=== PATIENT | male | born 1960 ===

== ENCOUNTER 2020-11-21 09:00 | Outpatient (REF) | payer BC, SELFPAY ==
[2020-11-21 09:57] LABS: Anion Gap 12 (12-20); Blood Urea Nitrogen 21 mg/dL (9-16); Calcium 8.8 mg/dL (8.4-10.2); Carbon Dioxide 28 mmol/L (22-29); Chloride 104 mmol/L (96-108); Estimated Glomerular Filt Rate > 60; Glucose Fasting 157 mg/dL (60-99); Potassium 4.4 mmol/l (3.3-5.1); Sodium 140 mmol/L (135-145)
== END 2020-11-21 09:01 | disposition home or self-care (01) ==
LOC: HO.LAB 09:00
PROVIDERS: PCP Hospitalist; Visit Provider Hospitalist
DX: E11.65 Type 2 diabetes mellitus with hyperglycemia (principal)
CPT/HCPCS: 36415; 80048

== ENCOUNTER 2021-07-31 09:49 | Outpatient (REF) | payer BC, SELFPAY ==
[2021-07-31 12:06] LABS: Prostate Specific Antigen 2.41 ng/mL (<0.05-4.0)
== END 2021-07-31 09:50 | disposition home or self-care (01) ==
LOC: HO.LAB 09:49
PROVIDERS: PCP Family Medicine; Visit Provider Urology
DX: R97.20 Elevated prostate specific antigen [PSA] (principal); Z12.5 Encounter for screening for malignant neoplasm of prostate
CPT/HCPCS: 36415; 84153

== ENCOUNTER → 2021-08-09 08:34 | Outpatient (BNVA) | payer BC, SELFPAY | PROVIDERS: PCP Hospitalist; Visit Provider Urology ==

== ENCOUNTER 2021-09-18 09:58 | Outpatient (REF) | payer BC, SELFPAY ==
[2021-09-18 11:55] LABS: Estimated Average Glucose 177 mg/dL; Hemoglobin A1c % 7.8 %
[2021-09-18 12:27] LABS: Alanine Aminotransferase 15 U/L (0-40); Albumin Level 4.3 g/dL (3.5-5.0); Alkaline Phosphatase 30 U/L (39-117); Anion Gap 13 (12-20); Aspartate Amino Transferase 10 U/L (5-37); Bilirubin Total 0.6 mg/dL (0.0-1.0); Blood Urea Nitrogen 19 mg/dL (9-16); Calcium 9.1 mg/dL (8.4-10.2); Carbon Dioxide 25 mmol/L (22-29); Chloride 108 mmol/L (96-108); Estimated Glomerular Filt Rate > 60; Glucose Fasting 144 mg/dL (60-99); Potassium 4.7 mmol/L (3.3-5.1); Sodium 141 mmol/L (135-145); Total Protein 7.1 g/dL (6.5-8.0)
== END 2021-09-18 09:59 | disposition home or self-care (01) ==
LOC: HO.WFDLDS 09:58
PROVIDERS: Visit Provider Family Medicine
DX: Z00.00 Encounter for general adult medical examination without abnormal findings (principal); R73.01 Impaired fasting glucose
CPT/HCPCS: 36415; 80053; 83036

== ENCOUNTER 2021-12-11 09:09 | Outpatient (REF) | payer BC, SELFPAY ==
[2021-12-11 10:46] LABS: Prostate Specific Antigen 5.27 ng/mL (<0.05-4.0)
== END 2021-12-11 09:10 | disposition home or self-care (01) ==
LOC: HO.LAB 09:09
PROVIDERS: PCP Hospitalist; Visit Provider Urology
DX: Z12.5 Encounter for screening for malignant neoplasm of prostate (principal); R97.20 Elevated prostate specific antigen [PSA]
CPT/HCPCS: 36415; 84153

== ENCOUNTER → 2021-12-18 09:10 | Outpatient (BNVA) | payer BC, SELFPAY | PROVIDERS: Visit Provider Urology ==

== ENCOUNTER 2022-04-30 09:15 | Outpatient (REF) | payer BC, SELFPAY ==
[2022-04-30 11:53] LABS: Mean Corpuscular HGB Conc 32.5 g/dl (31.0-36.0); Mean Corpuscular Hemoglobin 28.2 pg (27.0-33.0); Mean Corpuscular Volume 86.8 fL (80.0-98.0); Mean Platelet Volume 11.3 fL (9.4-12.4); Platelet Count 296 X10*3/uL (160-400); Red Blood Count 4.61 X10*6/uL (4.60-5.80); Red Cell Distribution Width 13.2 % (11.0-16.0); White Blood Count 7.2 X10*3/uL (4.8-10.8)
[2022-04-30 12:22] LABS: Alanine Aminotransferase 17 U/L (0-40); Albumin Level 4.3 g/dL (3.5-5.0); Alkaline Phosphatase 32 U/L (39-117); Anion Gap 11 (12-20); Aspartate Amino Transferase 10 U/L (5-37); Bilirubin Total 0.4 mg/dL (0.0-1.0); Blood Urea Nitrogen 17 mg/dL (9-16); Calcium 9.2 mg/dL (8.4-10.2); Carbon Dioxide 27 mmol/L (22-29); Chloride 104 mmol/L (96-108); Cholesterol 135 mg/dL; Estimated Glomerular Filt Rate > 60; Glucose Random 179 mg/dL (60-115); HDL Cholesterol 43 mg/dL; LDL Cholesterol Calculated 72 mg/dl; Potassium 4.4 mmol/L (3.3-5.1); Sodium 138 mmol/L (135-145); Total Protein 7.1 g/dL (6.5-8.0); Triglycerides 102 mg/dL
[2022-04-30 12:29] LABS: TSH reflex Free T4 1.01 uIU/mL (0.32-4.0)
[2022-04-30 12:33] LABS: PSA,Total (Free>4and<10) 1.24 ng/mL (0.00-4.00)
[2022-05-05 13:37] LABS: Vitamin D 25-OH, D2 <4 ng/mL; Vitamin D 25-OH, D3 41 ng/mL; Vitamin D 25-OH, Total 41 ng/mL (30-100)
== END 2022-04-30 09:16 | disposition home or self-care (01) ==
LOC: HO.WFDLDS 09:15
PROVIDERS: Absent Provider Urology; Visit Provider Hospitalist
DX: Z12.5 Encounter for screening for malignant neoplasm of prostate (principal); N32.0 Bladder-neck obstruction; E11.65 Type 2 diabetes mellitus with hyperglycemia; E55.9 Vitamin D deficiency, unspecified; I10 Essential (primary) hypertension
CPT/HCPCS: 36415; 80053; 80061; 82306; 84153; 84443; 85027

== ENCOUNTER → 2022-06-25 14:01 | Outpatient (BNVA) | payer BC, SELFPAY | PROVIDERS: PCP Hospitalist; Visit Provider Urology | DX: N32.0 Bladder-neck obstruction (principal); N52.1 Erectile dysfunction due to diseases classified elsewhere; R35.1 Nocturia; E11.69 Type 2 diabetes mellitus with other specified complication; R97.20 Elevated prostate specific antigen [PSA] | CPT/HCPCS: 51798 ==

== ENCOUNTER 2022-12-24 07:38 | Outpatient (REF) | payer BC, SELFPAY ==
[2022-12-24 08:04] LABS: Hematocrit 40.3 % (42.0-52.0); Hemoglobin 13.2 g/dl (14.0-18.0); Mean Corpuscular HGB Conc 32.8 g/dl (31.0-36.0); Mean Corpuscular Hemoglobin 28.3 pg (27.0-33.0); Mean Corpuscular Volume 86.5 fL (80.0-98.0); Mean Platelet Volume 10.4 fL (9.4-12.4); Platelet Count 295 X10*3/uL (160-400); Red Blood Count 4.66 X10*6/uL (4.60-5.80); Red Cell Distribution Width 13.6 % (11.0-16.0); White Blood Count 7.2 X10*3/uL (4.8-10.8)
[2022-12-24 08:48] LABS: Alanine Aminotransferase 12 U/L (0-40); Albumin Level 4.2 g/dL (3.5-5.0); Alkaline Phosphatase 30 U/L (39-117); Aspartate Amino Transferase 9 U/L (5-37); Bilirubin Direct 0.2 mg/dL (0.0-0.5); Bilirubin Total 0.7 mg/dL (0.0-1.0); Total Protein 6.8 g/dL (6.5-8.0)
[2022-12-24 09:03] LABS: Prostate Specific Antigen 1.04 ng/mL (<0.05-4.0)
== END 2022-12-24 07:39 | disposition home or self-care (01) ==
LOC: HO.LAB 07:38
PROVIDERS: PCP Hospitalist; Visit Provider Urology
DX: Z12.5 Encounter for screening for malignant neoplasm of prostate (principal); R97.20 Elevated prostate specific antigen [PSA]; R74.8 Abnormal levels of other serum enzymes; D64.9 Anemia, unspecified
CPT/HCPCS: 36415; 80076; 84153; 85027

== ENCOUNTER → 2022-12-31 08:42 | Outpatient (BNVA) | payer BC, SELFPAY | PROVIDERS: PCP Hospitalist; Visit Provider Urology | DX: Z13.89 Encounter for screening for other disorder (principal) ==

== ENCOUNTER 2023-02-20 10:13 | Outpatient (AMB) | payer BC, SELFPAY ==
--- NOTE | 2023-02-20 10:40 | A.OFFPC_ITS ---
Vital Signs 02/20/23 10:45 Height 5 ft 10 in Weight 215 lb BMI 30.8 BP 128/82 Blood Pressure Location Lt brachial Position Sitting Respiration 12 Pulse 70 Pulse Source Pulse Oximeter Temp 97 F Temp Source Temporal Artery Scan Pulse Oximetry (%) 99 Oxygen Delivery Method Room Air Intake Visit Reasons: 3 month f/u htn and dm Rn International Required: No Rn International Name: not required Accompanied by: Self / Same As Patient Allergies No Known Allergies Allergy (Verified 02/20/23 10:50) Medication List - Last Reconciled 02/20/23 by Shila Loyd NP atorvastatin 20 mg PO DAILY blood pressure test kit-large check bp twice a day until stable then 2 times per week cholecalciferol (vitamin D3) 25 mcg PO DAILY 3 months finasteride 5 mg PO DAILY 90 days glipizide ER 20 mg (2 x 10 mg) PO DAILY lisinopril-hydrochlorothiazide 20-12.5 mg 1 tab PO DAILY metformin 1,000 mg PO BID Tobacco use date assessed: 04/30/22 HPI HPI Comments History of Present Illness Details Pt is here today for htn and for his diabetes he notes that fasting his sugars are in the 120s and 130s and only about 20 points higher 2 hours after eating. His previous hga1c wa 9 in fall. He notes that he is taking medications with regularity, good tolerance and that he has a good supply on hand with no other concerns [facility] Medical History (Updated 02/20/23 @ 11:05 by Shila Loyd NP) Allergic rhinitis Body mass index (BMI) greater than 30 in adult Elevated prostate specific antigen [PSA] Erectile dysfunction Gastroesophageal reflux Hypertension Hypocholesterolemia Insomnia Migraine Obesity due to excess calories Overweight Type 2 diabetes mellitus with hyperglycemia Surgical History H/O left knee surgery H/O prostate biopsy Family History Father Hypertension Mother Hypertension Sister Heart problem Social History Housing: Apartment Alcohol intake: never Patient Tobacco Use Status: Former Tobacco user e-Cigarette/Vaping Use: Never Used Second Hand Smoke Exposure: No service: No Current occupational status: employed Current occupational exposures/hazards: No Cognitive needs: No Hearing needs: No Vision needs: No Questionnaire Thrive Questionnaire Date Thrive assessed: 09/06/21 Currently or been in a relationship where the following occur: no concerns reported FLORENTIN-7 AMB Questionnaire FLORENTIN-7 Date FLORENTIN - 7 assessed: 12/18/21 Source: Developed by Drs. Flaco Austin, Carolyn Calabrese, Adair Pyle and colleagues, with an educational binu from [employer]. Review of Systems Const Details: Patient reports being generally well with no weight change, fatigue, fever or chills. Head no headache, nausea, or visual changes. Eyes no blurriness tearing itching or change in vision. Nose no congestion sneezing itching or recent loss of smell Mouth normal with no hoarseness or throat or neck swelling. Cardiac no palpitations, dyspnea on exertion orthopnea, or edema. Respiratory denies shortness of breath wheezing cough or sputum. GI appetite is unchanged with no pain, nausea, vomiting, diarrhea, or change in bowel habits Physical exam (Primary Care) Vital Signs: Last Vital Signs Temp 97 F 02/20/23 10:45 Pulse 70 02/20/23 10:45 Resp 12 02/20/23 10:45 BP 128/82 02/20/23 10:45 Pulse Ox 99 02/20/23 10:45 Oxygen Delivery Method Room Air 02/20/23 10:45 Care Plan Goal for BP management: bp at target BMI result Body Mass Index 33.3 bmi at high target at 30.0 recheck of weight confirmed that he was 215 as he reported to me when I asked about weight gain Tobacco/Smoking Status: Tobacco use Status Tobacco use date assessed 04/30/22 02/20/23 10:42 Patient Tobacco Use Status Former Tobacco user 02/20/23 10:42 e-Cigarette/Vaping Use Never Used 02/20/23 10:42 praised for never smoking Thrive Assessment: Date of Thrive Assessment Date Thrive assessed 09/06/21 02/20/23 10:42 Currently or been in a relationship where the following occur: no concerns reported Const Other: 62 year old M who appears stated age. He is in no acute distress, is well developed, and nourished. Head is normocephalic and atraumatic Eye pupils are equal, round, reactive to light, and accommodation. Heart is without murmurs, regular rate and rhythm, S1 and S2 are normal. Lungs are clear to auscultation bilaterally. Abdomen is soft, nontender, and nondistended with normal bowel sounds. Extremities are free of cyanosis or edema. Skin is warm dry and intact. Neurological nonfocal, motor strength normal upper and lower extremities with sensory exam intact. Psych patient is alert oriented and age-appropriate. Assessment and Plan Assessment & Plan (1) Hypertension: Code(s): I10 - Essential (primary) hypertension Plan: As I reported to the patient his blood pressure is at target. Of at least 100/50 and no higher than 140/90. He is going to continue his medications he checks his blood pressure at home but not every week. (2) Diabetes mellitus type II, controlled, with no complications: Code(s): E11.9 - Type 2 diabetes mellitus without complications Plan: Patient's hemoglobin A1c significantly improved over last hemoglobin A1c of 9. Is consistent with his home readings she is going to continue his current plan. Orders: Orders AMB Hemoglobin A1c Today E11.65 - Type 2 diabetes mellitus with hyperglycemia Coding Level of Care Code Est Pt Level 4 (83452) Diagnoses Hypertension I10 Diabetes mellitus type II, controlled, with no complications E11.9 Time Spent (min) 30 Comment 15 w/ pt and 15 reveiwing, planning, and doc care today
[2023-02-20 10:45] VITALS: BP 128/82; PULSE 70; RESP 12; TEMP 36.1; O2SAT 99; BMI 30.8
== END 2023-02-20 11:55 | disposition home or self-care (01) ==
LOC: HO.HMGFM 10:13
PROVIDERS: PCP Hospitalist; Visit Provider Hospitalist
DX: E11.65 Type 2 diabetes mellitus with hyperglycemia (principal)
CPT/HCPCS: 83036; 99214

== ENCOUNTER 2023-07-04 07:43 | Outpatient (REF) | payer BC, SELFPAY | END 2023-07-04 07:44 | disposition home or self-care (01) | LOC: HO.LAB 07:43 | PROVIDERS: PCP Hospitalist; Visit Provider Urology | DX: R97.20 Elevated prostate specific antigen [PSA] (principal); Z12.5 Encounter for screening for malignant neoplasm of prostate | CPT/HCPCS: 36415; 84153 ==

== ENCOUNTER 2023-07-11 14:15 | Outpatient (AMB) | payer BC, SELFPAY ==
--- NOTE | 2023-07-11 14:25 | A.OFFVIS_ITS ---
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 He is seen for the following urolo gic conditions - erectile dysfunction - bladder outlet obstruction with elevated PSA Mauritian translation provided by qualified medical donation professional Stable urinary parameters with minimal nocturia and effective bladder emptying Will cut back to Friday, Friday, Friday PVR 0 6 month follow-up Elevated PSA Prior biopsy for PSA proximally 4 - negative PSA 08/07 2.4, 12/08 5.3, 05/08 1.2, 01/09 1.1, 07/09 1.5 Did notice improved urinary parameters with less nocturia on finasteride Current therapy finasteride Erectile dysfunction secondary to diabetes Progressive Recent diagnosis of uncontrolled diabetes HBA1c 7.8% Poor response to on demand sildenafil Trial of high-dose daily tadalafil 10/07 poor response PFSH Medical History Allergic rhinitis Body mass index (BMI) greater than 30 in adult Elevated prostate specific antigen [PSA] Erectile dysfunction Gastroesophageal reflux Hypertension Hypocholesterolemia Insomnia Migraine Obesity due to excess calories Overweight Type 2 diabetes mellitus with hyperglycemia Surgical History H/O left knee surgery H/O prostate biopsy Family History Father Hypertension Mother Hypertension Sister Heart problem Social History Housing: Apartment Alcohol intake: never Patient Tobacco Use Status: Former Tobacco user e-Cigarette/Vaping Use: Never Used Second Hand Smoke Exposure: No service: No Current occupational status: employed Current occupational exposures/hazards: No Cognitive needs: No Hearing needs: No Vision needs: No Review of Systems Const Denies chills and Denies fever(s) Card Reports no additional complaints and Denies syncope Resp Denies cough GI Denies abdominal pain and Denies heartburn Reports as per HPI and Denies change in libido Neuro Denies syncope Psych Denies change in libido Endo Denies change in libido Physical Exam Const General: cooperative, healthy appearing, comfortable and no acute distress Orientation/consciousness: patient oriented x3 HEENT Face and sinus: Yes normal facial exam Mouth: moist mucous membranes Neck Neck: Yes normal visual inspection, Yes full ROM and Yes trachea midline Chest Chest palpation & inspection: normal inspection of the chest Resp Effort & Inspection: normal respiratory effort, able to speak in complete sentences and no respiratory distress GI Inspection: Yes normal to inspection Back/Spine/Pelvis Cervical Spine: normal cervical lordosis Thoracic/Lumbar Spine: thoracic and lumbar spine normal to inspection Skin General skin exam: no rashes or lesions noted Neuro General: patient oriented x3, gait normal, tone normal and moves all extremities Extrem General: Yes normal to inspection and Yes capillary refill normal Office Procedures Post Void Residual Post Residual Void Post Void Residual (PVR): 0 [id number] Void Residual by ultrasound Results AMB Urinalysis, Automated UA Leukoctes 0 Dina/uL Last Edit by CAROLYN Haney on 07/11/23 14:34 UA Nitrite Negative Last Edit by CAROLYN Haney on 07/11/23 14:34 UA Urobilinogen 0.2 mg/dL Last Edit by CAROLYN Haney on 07/11/23 14:3 4 UA Protein 0 mg/dL Last Edit by MARTA HaneyA on 07/11/23 14:34 UA pH 5.5 Last Edit by Melody Espinal RMA on 07/11/23 14:34 UA Blood 0 Antonio/uL Last Edit by Melody Espinal, RMA on 07/11/23 14:34 UA Specific Calhoun 1.030 Last Edit by Melody Espinal RMA on 07/11/23 14: 34 UA Ketone Negative Last Edit by Melody Espinal, RMA on 07/11/23 14:34 UA Bilirubin 0 mg/dL Last Edit by Melody Espinal RMA on 07/11/23 14:34 UA Glucose 0 mg/dL Last Edit by Melody Espinal A on 07/11/23 14:34 Results Reviewed Results Reviewed: Laboratory Last Values Urine pH (Auto) 5.5 07/11/23 14:33 Specific Calhoun (Auto) 1.030 07/11/23 14:33 Urine Protein (Auto) 0 mg/dL 07/11/23 14:33 Glucose (UA)(Auto) 0 mg/dL 07/11/23 14:33 Urine Ketones (Auto) Negative 07/11/23 14:33 Urine Blood (Auto) 0 Antonio/uL 07/11/23 14:33 Urine Nitrite (Auto) Negative 07/11/23 14:33 Urine Bilirubin (Auto) 0 mg/dL 07/11/23 14:33 Urine Urobilinogen (Auto) 0.2 mg/dL 07/11/23 14:33 Leukocyte Esterase (Auto) 0 Dina/uL 07/11/23 14:33 Assessment & Plan Assessment & Plan (1) Erectile dysfunction associated with type 2 diabetes mellitus: Code(s): E11.69 - Type 2 diabetes mellitus with other specified complication; N52.1 - Erectile dysfunction due to diseases classified elsewhere (2) Elevated prostate specific antigen [PSA]: Code(s): R97.20 - Elevated prostate specific antigen [PSA] (3) Weak urinary stream: Code(s): R39.12 - Poor urinary stream Plan Six month follow-up Orders: Orders Prostate Specific Antigen 6 Months R97.20 - Elevated prostate specific antigen [PSA] AMB Urinalysis Automated Today Z13.9 - Encounter for screening, unspecified AMB Post Void Residual by ultrasound Today N39.8 - Other specified disorders of urinary system Patient Instructions: Imaging studies, laboratory and physical exam results were discussed and reviewed in detail. No major barriers to patient understanding were identified. An opportunity to ask questions regarding the treatment plan was provided. All questions were answered. The patient expressed understanding and agreement with the above treatment plan. The patient is aware they should contact our office by phone for worsening of their current condition or the appearance of new urologic symptoms. Compliance is encouraged with any medications and followup testing that is ordered. It is a privilege to participate in the urologic care of your patient. If you have any questions or concerns regarding treatment for the above conditions, or other urologic issues, please do not hesitate to contact me. The office telephone contact is [phone]. This note is constructed using voice recognition software. While every effort has been made to ensure accuracy catia designer errors may have been included. Yours sincerely, Dr David Orosco MD, [facility] - Urology Providers of Expert, Compassionate Care for the Genitourinary System Coding Level of Care Code Est Pt Level 3 (20709) Diagnoses Erectile dysfunction associated with type 2 diabetes mellitus E11.69; N52.1 Elevated prostate specific antigen [PSA] R97.20 Weak urinary stream R39.12 CPT Codes Post Residual Void - PVR CPT Code: 64385-[id number] Void Residual by ultrasound ([id number])
== END 2023-07-11 14:39 | disposition home or self-care (01) ==
PROVIDERS: PCP Hospitalist; Visit Provider Urology
DX: E11.69 Type 2 diabetes mellitus with other specified complication (principal); N52.1 Erectile dysfunction due to diseases classified elsewhere; R97.20 Elevated prostate specific antigen [PSA]; R39.12 Poor urinary stream; Z13.9 Encounter for screening, unspecified
CPT/HCPCS: 99213

== ENCOUNTER → 2023-07-11 14:15 | Outpatient (BNVA) | payer BC, SELFPAY | PROVIDERS: Visit Provider Urology | DX: R97.20 Elevated prostate specific antigen [PSA] (principal); E11.69 Type 2 diabetes mellitus with other specified complication; N52.1 Erectile dysfunction due to diseases classified elsewhere; R39.12 Poor urinary stream | CPT/HCPCS: 51798; 81003 ==

== ENCOUNTER 2023-08-14 08:20 | Outpatient (AMB) | payer BC, SELFPAY ==
[2023-08-14 08:42] VITALS: BP 122/74; PULSE 68; RESP 12; TEMP 36.8; O2SAT 99; BMI 30.7
--- NOTE | 2023-08-14 08:42 | A.OFFPC_ITS ---
Vital Signs 08/14/23 08:42 Height 5 ft 10 in Weight 214 lb BMI 30.7 BP 122/74 Blood Pressure Location Lt brachial Position Sitting Respiration 12 Pulse 68 Pulse Source Pulse Oximeter Temp 98.2 F Temp Source Oral Pulse Oximetry (%) 99 Oxygen Delivery Method Room Air Intake Visit Reasons: PE Intake Note: Patient is here for his physical today. Press Writer Required: Yes Press Writer Name: [email or web address] [id number] Allergies No Known Allergies Allergy (Verified 08/14/23 09:00) Medication List - Last Reconciled 08/14/23 by Sammy Marley CNP atorvastatin 20 mg PO DAILY blood pressure test kit-[facility] check bp twice a day until stable then 2 times per week cholecalciferol (vitamin D3) 25 mcg PO DAILY 3 months finasteride 5 mg PO DAILY 90 days glipizide ER 20 mg (2 x 10 mg) PO DAILY lisinopril-hydrochlorothiazide 20-12.5 mg 1 tab PO DAILY metformin 1,000 mg PO BID Tobacco use date assessed: 08/14/23 Dental Screening Dental Screen Date: 08/14/23 Did you have a dental visit in the last 12 months?: No Did you have a dental problem in the last 6 months where you did not have access to dental care?: No Was dental information given to patient?: Yes HPI HPI Comments History of Present Illness Details 62-year-old [place]ankan-speaking male prescullen javier for physical exam. He has past medical history significant for type 2 diabetes, hypertension, hypercholesterolemia, vitamin-D deficiency, and bladder outlet obstruction. He is on metformin, glipizide, lisinopril-hydrochlorothiazide, atorvastatin, finasteride, and vitamin D. He admits to taking his medications as prescribed. He states that he has been making healthy dietary choices. He states that he has not been exercising because his job keeps him busy. 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 He denies acute symptoms at this time. He requests a transfer to the [facility] practice for ease of transportation to that facility. He states that his last eye was within a year or more, in [place]: normal He states he has not been evaluated by a podiatry He notes [place] [facility] [place]. His next colonoscopy is due in 2024 He is followed [place] [facility] [place]. His last appointment was 06/2023 He states he has never had the shingrix vaccines REPLACED BY [facility] Medical History (Updated 08/14/23 @ 10:51 by Sammy Marley CNP) Hypocholesterolemia Elevated prostate specific antigen [PSA] Erectile dysfunction Obesity due to excess calories Body mass index (BMI) greater than 30 in adult Type 2 diabetes mellitus with hyperglycemia Allergic rhinitis Overweight Hypertension Gastroesophageal reflux Insomnia Migraine Surgical History H/O prostate biopsy H/O left knee surgery Family History Father Hypertension Mother Hypertension Sister Heart problem Social History Housing: Apartment Alcohol intake: never Patient Tobacco Use Status: Former Tobacco user e-Cigarette/Vaping Use: Never Used Second Hand Smoke Exposure: No service: No Current occupational status: employed Current occupational exposures/hazards: No Cognitive needs: No Hearing needs: No Vision needs: No Questionnaire PHQ-9 Over the last 2 weeks, how often have you been bothered by any of the following problems? 1. Little interest or pleasure in doing things: not at all 2. Feeling down, depressed, or hopeless: not at all 3. Trouble falling or staying asleep, or sleeping too much: not at all 4. Feeling tired or having little energy: not at all 5. Poor appetite or overeating: not at all 6. Feeling bad about yourself - or that you are a failure or have let yourself or your family down: not at all 7. Trouble concentrating on things, such as reading the newspaper or watching television: not at all 8. Moving or speaking so slowly that other people could have noticed. Or the opposite - being so fidgety or restless that you have been moving around a lot more than usual: not at all 9. Thoughts that you would be better off or of hurting yourself in some way: not at all Total score: 0 Depression Screening Interpretation: Negative 00488 - PHQ-9 Billing: Yes Source: Developed by Drs. Flaco Austin, Carolyn Calabrese, Adair Pyle and colleagues, with an educational binu from [employer] Thrive Questionnaire Date Thrive assessed: 09/06/21 FLORENTIN-7 AMB Questionnaire FLORENTIN-7 Date FLORENTIN - 7 assessed: 08/14/23 Feeling nervous, anxious, or on edge: 0 = Not at all Not being able to stop or control worryin = Not at all Worrying too much about different things: 0 = Not at all Trouble relaxin = Not at all Being so restless that it is hard to sit still: 0 = Not at all Becoming easily annoyed or irritable: 0 = Not at all Feeling afraid as if something awful might happen: 0 = Not at all Total FLORENTIN-7 score (0-4 normal; 5-9 mild; 10-14 moderate; 15-21 severe): 0 Source: Developed by Drs. Flaco Austin, Carolyn Calabrese, Adair Pyle and colleagues, with an educational binu from [employer] FLORENTIN-7 Assessment Billing FLORENTIN-7 Assessment Tool: FLORENTIN-7 Assessment 44468 Review of Systems Const Details: Const Denies chills, Denies fatigue, Denies fever(s), Denies headache(s) and Denies weakness ENT Denies dizziness and Denies headache(s) Card Denies chest pain, Denies lightheadedness, Denies dyspnea and Denies other (Palpitations) Resp Denies cough, Denies dyspnea, Denies wheezing and Denies other ( shortness of breath) GI Denies abdominal pain, Denies melena, Denies hematochezia, Denies change in bowel habits, Denies dyspepsia and Denies nausea Denies hematuria and Denies dysuria Musc Denies abnormal gait, Denies myalgias, Denies arthralgias, Denies numbness and Denies tingling Skin/Breast Denies rash, Denies unusual bruising and Denies wounds Neuro Denies abnormal gait, Denies dizziness, Denies headache(s), Denies memory loss, Denies numbness, Denies Sensory deficit (Neuro), Denies tingling and Denies weakness Psych Denies anxiety, Denies depression, Denies memory loss Endo Denies cold intolerance, Denies fatigue, Denies heat intolerance, Denies polydipsia and Denies polyuria Aller/Immun Denies wheezing Physical exam (Primary Care) Vital Signs: Last Vital Signs Temp 98.2 F 08/14/23 08:42 Pulse 68 08/14/23 08:42 Resp 12 08/14/23 08:42 BP 122/74 08/14/23 08:42 Pulse Ox 99 08/14/23 08:42 Oxygen Delivery Method Room Air 08/14/23 08:42 BMI result Body Mass Index 30.7 Tobacco/Smoking Status: Tobacco use Status Tobacco use date assessed 08/14/23 08/14/23 08:53 Patient Tobacco Use Status Former Tobacco user 08/14/23 08:53 e-Cigarette/Vaping Use Never Used 08/14/23 08:53 PHQ-9: PHQ-9 Score PHQ-9: Total score 0 08/14/23 10:44 Depression Screening Interpretation: Negative Thrive Assessment: Date of Thrive Assessment Date Thrive assessed 09/06/21 08/14/23 08:53 Const Other: General: no acute distress and well developed Nutritional Appearance: well nourished Orientation/consciousness: patient oriented x3 HENMT Head: Yes normocephalic and Yes atraumatic Eyes General: appearance normal, both eyes and all related structures Pupils: Equal, round and reactive pupils present EOM: EOMs intact bilaterally Resp Effort & Inspection: normal respiratory effort Auscultation: clear to auscultation bilaterally Cardio Rate: regular rate Rhythm: regular rhythm Heart sounds: S1 normal heart sound present, S2 normal heart sound present, no gallops, no murmurs and no rubs GI Palpation (GI): No Abdominal aortic bruit present, Soft to palpation, nontender, No hepatosplenomegaly present and No Rebound tenderness present Auscultation: normal bowel sounds General: Yes no CVA tenderness Back/Spine/Pelvis Back: no CVA tenderness Cervical Spine: cervical ROM normal and No Cervical spine tenderness Thoracic/Lumbar Spine: thoraco-lumbar ROM normal, No pain with thoraco-lumbar ROM, No thoracic spinal tenderness and No lumbar spinal tenderness Extrem General: Yes normal to inspection, No edema and No calf tenderness Skin General: warm and dry. Normal skin color. Normal skin turgor Lesions: no lesions Rashes: no rashes Trauma: no lacerations or abrasions Wounds: no wounds Nails: normal Neuro General: patient oriented x3, gait normal and no focal neuro deficit Cranial nerves: Yes Equal, round and reactive pupils present Cognition (Neuro): normal cognition Gait exam (Neuro): Normal gait present Sensory Exam: No Sensory deficit (Neuro) Psych Appearance: grossly normal Affect: normal affect Attitude: cooperative Thought process: Normal thought process present Office Procedures Flu Questionnaire Does the patient have a severe egg allergy?: No Does the patient have severe life threatening allergies?: No Does the patient have a fever or illness today?: No Has the patient ever had Guillain-[place] Syndrome?: No Has the patient ever had any past reaction to a flu shot?: No Results AMB Hemoglobin A1c AMB Hemoglobin A1c 7.9 % Last Edit by Christa Arriaza CMA on 08/14/23 12:17 Immunizations flu vacc [id number] 6mos up(PF) 60 mcg(15 mcgx4)/0.5 mL IM syringe Performing Provider: Sammy Marley CNP Performing Location: [facility] [place] [facility] Administered by: Adri Pak RN on 08/14/23 10:53 Dose Route Admin Location Dispensed Lot Number Expiration Date NDC Sales Secretary 0.5 mL IM Left Deltoid 0.5 mL [id number] 05/16/24 07367-145-90 [email or web address] VIS Given Date VIS Provided VIS Publication Date 08/14/23 Single Vaccine 21 Eligibility Eligibility Date Funding Source Not [facility] Eligible 08/14/23 Private Assessment and Plan Assessment & Plan (1) Normal physical examination, routine: Code(s): Z00.00 - Encounter for general adult medical examination without abnormal findings Plan: No significant physical restrictions or limitations noted For encouraged to continue take his medications as prescribed Advised to follow-up with [place] [facility] [place] 3 months for diabetes and hypertension follow-up He may return to the [facility] practice for follow-up if he has not established with the [place] practice in 3 months Return with symptoms or concerns Follow-up with urology as planned Verbalized understanding and agreed with treatment plan. Interpretation by professional site promotion agent via an electronic tablet. (2) Diabetes type 2, uncontrolled: Code(s): E11.65 - Type 2 diabetes mellitus with hyperglycemia Qualifiers: Glycemic state: with hyperglycemia Qualified Code(s): E11.65 - Type 2 diabetes mellitus with hyperglycemia Plan: A1c today is 7.9%, above goal of less than 7.0%. Previous A1c a year ago was 9.0% Continue to take metformin and glipizide as prescribed ADA diet and routine exercise encouraged Follow-up in 3 months with [facility] provider if establish or return to the [facility] Return sooner with symptoms or concerns Podiatry and Ophthalmology referral made Verbalized understanding and agreed with treatment plan (3) Hypocholesterolemia: Code(s): E78.6 - Lipoprotein deficiency Plan: LDL was 72 in April 2022, within goal of less than 70 Continue to take atorvastatin as prescribed Advised to limit foods high in saturated fat and avoid foods high trans fat Routine exercise encouraged Verbalized understanding and agreed with treatment plan. (4) Hypertension: Code(s): I10 - Essential (primary) hypertension Plan: Blood pressure is 122/74, within goal of less than 130/80 Continue to take lisinopril-hydrochlorothiazide as prescribed Low-sodium diet encouraged Follow-up in 3 months or return sooner with worsening or new symptoms Verbalized understanding and agreed with treatment plan. (5) Vaccine counseling: Code(s): Z71.85 - Encounter for immunization safety counseling Plan: Flu vaccine administered by the nurse He notes he has never received the Shingrix vaccines Instructed on importance of vaccination and encouraged to get the Shingrix vaccines. He May request this vaccine from the pharmacy Verbalized understanding and agreed with treatment plan. Orders: Orders AMB Hemoglobin A1c Today Z13.9 - Encounter for screening, unspecified Hemoglobin A1c Today E11.65 - Type 2 diabetes mellitus with hyperglycemia Influenza [id number] Immunization Today Z23 - Encounter for immunization Referrals Ophthalmology Referral E11.65 - Type 2 diabetes mellitus with hyperglycemia Podiatry Referral E11.65 - Type 2 diabetes mellitus with hyperglycemia Coding Level of Care Code Est Pt Level 3 (56201) Est Pt Prev Care 40-64y(24479) Diagnoses Normal physical examination, routine Z00.00 Uncontrolled type 2 diabetes mellitus with hyperglycemia E11.65 Glycemic state: with hyperglycemia Hypocholesterolemia E78.6 Hypertension I10 Vaccine counseling Z71.85 Additional Codes FLORENTIN-7 Assessment Billing - FLORENTIN-7 Assessment Tool: FLORENTIN-7 Assessment 57993 ([id number])
== END 2023-08-14 09:44 | disposition home or self-care (01) ==
PROVIDERS: PCP Hospitalist; Visit Provider Nurse Practitioner Family
DX: Z00.00 Encounter for general adult medical examination without abnormal findings (principal); E11.65 Type 2 diabetes mellitus with hyperglycemia; E78.6 Lipoprotein deficiency; I10 Essential (primary) hypertension; Z71.85 Encounter for immunization safety counseling; Z23 Encounter for immunization
CPT/HCPCS: 83036; 90471; 90686; 99396

== ENCOUNTER 2023-08-14 09:26 | Outpatient (REF) | payer BC, SELFPAY | END 2023-08-14 09:27 | disposition home or self-care (01) | LOC: HO.LAB 09:26 | PROVIDERS: Visit Provider Nurse Practitioner Family | DX: Z13.89 Encounter for screening for other disorder (principal) ==

== ENCOUNTER 2023-11-13 09:35 | Outpatient (AMB) | payer BC, SELFPAY ==
--- NOTE | 2023-11-13 09:40 | A.OFFPC_ITS ---
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 Accompanied by: Self / Same As Patient Allergies No Known Allergies Allergy (Verified 11/13/23 10:23) Medication List - Last Reconciled 11/13/23 by Sammy Marley CNP atorvastatin 20 mg PO DAILY blood pressure test kit-large check bp twice a day until stable then 2 times per week cholecalciferol (vitamin D3) 25 mcg PO DAILY 3 months finasteride 5 mg PO DAILY 90 days glipizide ER 20 mg (2 x 10 mg) PO DAILY 60 days lisinopril-hydrochlorothiazide 20-12.5 mg 1 tab PO DAILY metformin 1,000 mg PO BID Tobacco use date assessed: 08/14/23 Dental Screening Dental Screen Date: 11/13/23 Did you have a dental visit in the last 12 months?: Yes Did you have a dental problem in the last 6 months where you did not have access to dental care?: No Was dental information given to patient?: Patient has dentist HPI HPI Comments History of Present Illness Details 63-year-old Chilean speaking male presen for diabetes and hypertension follow-up He admits to taking his medications as prescribed without adverse reactions He admits to not making healthy dietary choices. He has been consuming carbs including rice, pasta, potatoes, and bread. 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 He denies hypoglycemia symptoms No acute symptoms at this time ON LICENSE OF [facility] Medical History Hypocholesterolemia Elevated prostate specific antigen [PSA] Erectile dysfunction Obesity due to excess calories Body mass index (BMI) greater than 30 in adult Type 2 diabetes mellitus with hyperglycemia Allergic rhinitis Overweight Hypertension Gastroesophageal reflux Insomnia Migraine Surgical History H/O prostate biopsy H/O left knee surgery Family History Father Hypertension Mother Hypertension Sister Heart problem Social History Housing: Apartment Alcohol intake: never Patient Tobacco Use Status: Former Tobacco user e-Cigarette/Vaping Use: Never Used Second Hand Smoke Exposure: No service: No Current occupational status: employed 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 Flaco Austin, Carolyn Calabrese, Adair Pyle and colleagues, with an educational binu from [employer]. Review of Systems Const Details: Const Denies chills, Denies fatigue, Denies fever(s), Denies headache(s) and Denies weakness ENT Denies dizziness and Denies headache(s) Card Denies chest pain, Denies lightheadedness, Denies dyspnea and Denies other (Palpitations) Resp Denies cough, Denies dyspnea, Denies wheezing and Denies other ( shortness of breath) GI Denies abdominal pain, Denies melena, Denies hematochezia, Denies change in bowel habits, Denies dyspepsia and Denies nausea Denies hematuria and Denies dysuria Musc Denies abnormal gait, Denies myalgias, Denies arthralgias, Denies numbness and Denies tingling Skin/Breast Denies rash, Denies unusual bruising and Denies wounds Neuro Denies abnormal gait, Denies dizziness, Denies headache(s), Denies memory loss, Denies numbness, Denies Sensory deficit (Neuro), Denies tingling and Denies weakness Psych Denies anxiety, Denies depression, Denies memory loss Endo Denies cold intolerance, Denies fatigue, Denies heat intolerance, Denies polydipsia and Denies polyuria Aller/Immun Denies wheezing Physical exam (Primary Care) Vital Signs: Last Vital Signs Temp 97.6 F 11/13/23 09:41 Pulse 78 11/13/23 09:41 Resp 13 11/13/23 09:41 BP 124/70 11/13/23 10:30 Pulse Ox 99 11/13/23 09:41 Oxygen Delivery Method Room Air 11/13/23 09:41 BMI result Body Mass Index 32.0 Tobacco/Smoking Status: Tobacco use Status Tobacco use date assessed 08/14/23 11/13/23 09:40 Patient Tobacco Use Status Former Tobacco user 11/13/23 09:40 e-Cigarette/Vaping Use Never Used 11/13/23 09:40 Thrive Assessment: Date of Thrive Assessment Date Thrive assessed 09/06/21 11/13/23 09:40 Const Other: General: no acute distress and well developed Nutritional Appearance: well nourished Orientation/consciousness: patient oriented x3 HENMT Head: Yes normocephalic and Yes atraumatic Eyes General: appearance normal, both eyes and all related structures Pupils: Equal, round and reactive pupils present EOM: EOMs intact bilaterally Resp Effort & Inspection: normal respiratory effort Auscultation: clear to auscultation bilaterally Cardio Rate: regular rate Rhythm: regular rhythm Heart sounds: S1 normal heart sound present, S2 normal heart sound present, no gallops, no murmurs and no rubs GI Palpation (GI): No Abdominal aortic bruit present, Soft to palpation, nontender, No hepatosplenomegaly present and No Rebound tenderness present Auscultation: normal bowel sounds General: Yes no CVA tenderness Back/Spine/Pelvis Back: no CVA tenderness Cervical Spine: cervical ROM normal and No Cervical spine tenderness Thoracic/Lumbar Spine: thoraco-lumbar ROM normal, No pain with thoraco-lumbar ROM, No thoracic spinal tenderness and No lumbar spinal tenderness Extrem General: Yes normal to inspection, No edema and No calf tenderness Skin General: warm and dry. Normal skin color. Normal skin turgor Neuro General: patient oriented x3, gait normal and no focal neuro deficit Cranial nerves: Yes Equal, round and reactive pupils present Cognition (Neuro): normal cognition Gait exam (Neuro): Normal gait present Sensory Exam: No Sensory deficit (Neuro) Psych Appearance: grossly normal Affect: normal affect Attitude: cooperative Thought process: Normal thought process present Results AMB Hemoglobin A1c AMB Hemoglobin A1c 8.5 % Last Edit by Maira Philippe MA on 11/13/23 09:58 Results Reviewed Results Reviewed: Laboratory Last Values Hgb A1c (Clinic) 8.5 % (4.0-6.0) H 11/13/23 09:57 Assessment and Plan Assessment & Plan (1) Diabetes type 2, uncontrolled: Code(s): E11.65 - Type 2 diabetes mellitus with hyperglycemia Qualifiers: Glycemic state: with hyperglycemia Qualified Code(s): E11.65 - Type 2 diabetes mellitus with hyperglycemia Plan: A1c today is 8.5%, above goal of less than 7.0%. Previous A1c was 7.9% He notes he has been taking his medications as prescribed He admits to making on healthy dietary choices including carbs such as rice, potato, pasta, and bread Declines Trulicity at this time he notes he will exercise more and stat eating healthy Continue current treatment regimen ADA diet and routine exercise encouraged Advised to check his blood sugar 3 times daily, fasting, lunch, and dinner. He notes he has a glucometer and supplies for blood glucose testing Encouraged to document blood sugar readings and bring to his next appointment Advised to get labs done, lipid panel and urine microalbumin before his with next visit. Encouraged to fast for at least 10 hours before getting blood work done He has not schedule appointment with Ophthalmology and Podiatry. He is given contact information and encouraged to call and schedule an appointment for both Follow-up in 1 month or return sooner with symptoms or concerns Verbalized understanding and agreed with treatment plan Interpretation by a professional [employer] certified network professional via electronic tablet (2) Hypertension: Code(s): I10 - Essential (primary) hypertension Plan: Resting blood pressure is 124/70, slightly above goal of less than 130/80 Continue current treatment regimen Low-sodium diet encouraged Will continue to monitor Follow-up in 1 month Verbalized understanding and agreed with treatment plan Coding Level of Care Code Est Pt Level 3 (82442) Diagnoses Uncontrolled type 2 diabetes mellitus with hyperglycemia E11.65 Glycemic state: with hyperglycemia Hypertension I10
[2023-11-13 09:41] VITALS: BP 158/80; PULSE 78; RESP 13; TEMP 36.4; O2SAT 99; BMI 32.0
[2023-11-13 10:30] VITALS: BP 124/70
== END 2023-11-13 11:00 | disposition home or self-care (01) ==
PROVIDERS: PCP Nurse Practitioner Family; Visit Provider Nurse Practitioner Family
DX: E11.65 Type 2 diabetes mellitus with hyperglycemia (principal); I10 Essential (primary) hypertension
CPT/HCPCS: 99213

== ENCOUNTER 2023-12-08 07:36 | Outpatient (REF) | payer BC, SELFPAY ==
[2023-12-08 08:40] LABS: Estimated Average Glucose 194 mg/dL; Hemoglobin A1c % 8.4 % (<6.0)
[2023-12-08 09:09] LABS: Cholesterol 110 mg/dL (<200); HDL Cholesterol 41 mg/dL (>40); LDL Cholesterol Calculated 55 mg/dL (<100); Triglycerides 74 mg/dL (<150)
[2023-12-08 09:29] LABS: Prostate Specific Antigen 1.16 ng/mL (<0.05-4.0)
[2023-12-08 10:43] LABS: Creatinine Urine 235.92 mg/dL; Microalbum/Creatinine Ratio Ur 18.2 ug/mg cr (<30)
== END 2023-12-08 07:37 | disposition home or self-care (01) ==
LOC: HO.LAB 07:36
PROVIDERS: Urology; PCP Nurse Practitioner Family; Visit Provider Nurse Practitioner Family
DX: Z12.5 Encounter for screening for malignant neoplasm of prostate (principal); R97.20 Elevated prostate specific antigen [PSA]; E78.6 Lipoprotein deficiency; E11.65 Type 2 diabetes mellitus with hyperglycemia
CPT/HCPCS: 36415; 80061; 82043; 82570; 83036; 84153

== ENCOUNTER 2023-12-12 07:48 | Outpatient (AMB) | payer BC, SELFPAY ==
--- NOTE | 2023-12-12 08:16 | MHC.PC.OV ---
Vital Signs 12/12/23 08:17 12/12/23 08:31 Height 5 ft 10 in Weight 215 lb 2 oz BMI 30.9 BP 154/70 H 140/80 H Blood Pressure Location Rt brachial Rt brachial Position Sitting Sitting Respiration 13 Pulse 76 Pulse Source Pulse Oximeter Temp 97.2 F Temp Source Temporal Artery Scan Pulse Oximetry (%) 99 Oxygen Delivery Method Room Air Intake Visit Reasons: f/u DM An/Ssn 2 4 Operator Required: Yes An/Ssn 2 4 Operator Name: Goldie ([id number]) Accompanied by: Self / Same As Patient Allergies No Known Allergies Allergy (Verified 11/13/23 10:23) Medication List - Last Reconciled 12/12/23 by Sammy Marley CNP atorvastatin 20 mg PO DAILY blood pressure test kit-large check bp twice a day until stable then 2 times per week cholecalciferol (vitamin D3) 25 mcg PO DAILY 3 months finasteride 5 mg PO DAILY 90 days glipizide ER 20 mg (2 x 10 mg) PO DAILY 60 days lisinopril-hydrochlorothiazide 20-12.5 mg 1 tab PO DAILY metformin 1,000 mg PO BID Tobacco use date assessed: 12/12/23 Dental Screening Dental Screen Date: 12/12/23 Did you have a dental visit in the last 12 months?: No Did you have a dental problem in the last 6 months where you did not have access to dental care?: No Was dental information given to patient?: Patient has dentist HPI HPI Comments History of Present Illness Details 63-year-old Swedish speaking male presents for diabetes follow-up He admits to taking his medications as prescribed without adverse reactions. He notes he has not taking his medications this morning He attributes his elevated glucose to significant stress. He notes that he is in a lot of stress because his is currently intubated. Her condition is not improving and therefore, she will be extubated today. He denies anxiety or depression He admits to not making healthy dietary choices. He has been consuming carbs including rice, pasta, potatoes, and bread. 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. He denies hypoglycemia symptoms His last A1c was 8.4% in 12/08/2023. This was somehow checked 2 months early. Previous A1c in October was 8.5%. He did not bring a blood glucose log. He notes that he checks his fasting glucose routinely and usually in the 120s and 130s [facility] Medical History Hypocholesterolemia Elevated prostate specific antigen [PSA] Erectile dysfunction Obesity due to excess calories Body mass index (BMI) greater than 30 in adult Type 2 diabetes mellitus with hyperglycemia Allergic rhinitis Overweight Hypertension Gastroesophageal reflux Insomnia Migraine Surgical History H/O prostate biopsy H/O left knee surgery Family History Father Hypertension Mother Hypertension Sister Heart problem Social History Housing: Apartment Alcohol intake: never Patient Tobacco Use Status: Former Tobacco user e-Cigarette/Vaping Use: Never Used Second Hand Smoke Exposure: No service: No Current occupational status: employed 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 Flaco Austin, Carolyn Calabrese, Adair Pyle and colleagues, with an educational binu from [employer]. Review of Systems Const Details: Const Denies chills, Denies fatigue, Denies fever(s), Denies headache(s) and Denies weakness ENT Denies dizziness and Denies headache(s) Card Denies chest pain, Denies lightheadedness, Denies dyspnea and Denies other (Palpitations) Resp Denies cough, Denies dyspnea, Denies wheezing and Denies other ( shortness of breath) GI Denies abdominal pain, Denies melena, Denies hematochezia, Denies change in bowel habits, Denies dyspepsia and Denies nausea Denies hematuria and Denies dysuria Musc Denies abnormal gait, Denies myalgias, Denies arthralgias, Denies numbness and Denies tingling Skin/Breast Denies rash, Denies unusual bruising and Denies wounds Neuro Denies abnormal gait, Denies dizziness, Denies headache(s), Denies memory loss, Denies numbness, Denies Sensory deficit (Neuro), Denies tingling and Denies weakness Psych Denies anxiety, Denies depression, Denies memory loss Endo Denies cold intolerance, Denies fatigue, Denies heat intolerance, Denies polydipsia and Denies polyuria Aller/Immun Denies wheezing Physical exam (Primary Care) Tobacco/Smoking Status: Tobacco use Status Tobacco use date assessed 08/14/23 12/12/23 08:17 Patient Tobacco Use Status Former Tobacco user 12/12/23 08:17 e-Cigarette/Vaping Use Never Used 12/12/23 08:17 Thrive Assessment: Date of Thrive Assessment Date Thrive assessed 09/06/21 12/12/23 08:17 Const Other: General: no acute distress and well developed Nutritional Appearance: well nourished Orientation/consciousness: patient oriented x3 HENMT Head: Yes normocephalic and Yes atraumatic Eyes General: appearance normal, both eyes and all related structures Pupils: Equal, round and reactive pupils present EOM: EOMs intact bilaterally Resp Effort & Inspection: normal respiratory effort Auscultation: clear to auscultation bilaterally Cardio Rate: regular rate Rhythm: regular rhythm Heart sounds: S1 normal heart sound present, S2 normal heart sound present, no gallops, no murmurs and no rubs GI Palpation (GI): No Abdominal aortic bruit present, Soft to palpation, nontender, No hepatosplenomegaly present and No Rebound tenderness present Auscultation: normal bowel sounds General: Yes no CVA tenderness Back/Spine/Pelvis Back: no CVA tenderness Cervical Spine: cervical ROM normal and No Cervical spine tenderness Thoracic/Lumbar Spine: thoraco-lumbar ROM normal, No pain with thoraco-lumbar ROM, No thoracic spinal tenderness and No lumbar spinal tenderness Extrem General: Yes normal to inspection, No edema and No calf tenderness Skin General: warm and dry. Normal skin color. Normal skin turgor Neuro General: patient oriented x3, gait normal and no focal neuro deficit Cranial nerves: Yes Equal, round and reactive pupils present Cognition (Neuro): normal cognition Gait exam (Neuro): Normal gait present Sensory Exam: No Sensory deficit (Neuro) Psych Appearance: grossly normal Affect: normal affect Attitude: cooperative Thought process: Normal thought process present Assessment and Plan Assessment & Plan (1) Diabetes type 2, uncontrolled: Code(s): E11.65 - Type 2 diabetes mellitus with hyperglycemia Qualifiers: Glycemic state: with hyperglycemia Qualified Code(s): E11.65 - Type 2 diabetes mellitus with hyperglycemia Plan: His recent A1c on 12/08/2023 was 8.4%, above goal of less than 7.0%. Previous A1c about a month ago was 8.5% Continue to decline Trulicity. He notes that he will start Trulicity if his A1c does not improve next time Continue current treatment regimen ADA diet and routine exercise encouraged Will recheck A1c in 3 months Return with symptoms or concerns Verbalized understanding agreed with treatment plan Interpretation by professional clinical resource manager via electronic tablet (2) Hypertension: Code(s): I10 - Essential (primary) hypertension Plan: Resting blood pressure is 140/80, above goal of less than 130/80 He has not taken his medications this morning He attributes his elevated blood pressure to significant stress due to his who is currently intubated and will be extubated today due to worsening health condition Encouraged to continue current treatment regimen Low-sodium diet encouraged Follow-up in 2 weeks Verbalized understanding and agreed with treatment plan (3) Stress due to illness of family member: Code(s): Z63.79 - Other stressful life events affecting family and household Plan: Significant stress due to his who is currently intubated and will be extubated today due to worsening health condition No anxiety or depression Declines psychotherapy Routine exercise and deep breathing/relaxation techniques encouraged He may contact his PCP if he needs further evaluation or psychotherapy Follow-up with worsening or new symptoms Verbalized understanding and agreed with treatment plan Coding Level of Care Code Est Pt Level 4 (92678) Diagnoses Uncontrolled type 2 diabetes mellitus with hyperglycemia E11.65 Glycemic state: with hyperglycemia Hypertension I10 Stress due to illness of family member Z63.79
[2023-12-12 08:17] VITALS: BP 154/70; PULSE 76; RESP 13; TEMP 36.2; O2SAT 99; BMI 30.9
[2023-12-12 08:31] VITALS: BP 140/80
== END 2023-12-12 08:47 | disposition home or self-care (01) ==
PROVIDERS: PCP Nurse Practitioner Family; Visit Provider Nurse Practitioner Family
DX: E11.65 Type 2 diabetes mellitus with hyperglycemia (principal); I10 Essential (primary) hypertension; Z63.79 Other stressful life events affecting family and household
CPT/HCPCS: 99214

== ENCOUNTER 2024-01-09 07:50 | Outpatient (AMB) | payer BC, SELFPAY ==
--- NOTE | 2024-01-09 07:57 | MHC.PC.OV ---
Vital Signs 01/09/24 07:58 01/09/24 08:15 Height 5 ft 10 in Weight 217 lb 4 oz BMI 31.2 BP 150/90 H 140/80 H Blood Pressure Location Rt brachial Rt brachial Position Sitting Sitting Respiration 13 Pulse 90 Pulse Source Pulse Oximeter Temp 97.7 F Temp Source Temporal Artery Scan Pulse Oximetry (%) 99 Oxygen Delivery Method Room Air Intake Visit Reasons: htn Holter Technician Required: Yes Holter Technician Name: Shahana ([id number]) Accompanied by: Self / Same As Patient Allergies No Known Allergies Allergy (Verified 01/09/24 08:12) Medication List - Last Reconciled 01/09/24 by Sammy Marley CNP atorvastatin 20 mg PO DAILY blood pressure test kit-large check bp twice a day until stable then 2 times per week cholecalciferol (vitamin D3) 25 mcg PO DAILY 3 months finasteride 5 mg PO DAILY 90 days glipizide ER 20 mg (2 x 10 mg) PO DAILY 60 days lisinopril-hydrochlorothiazide 20-12.5 mg 1 tab PO DAILY metformin 1,000 mg PO BID Tobacco use date assessed: 12/12/23 Dental Screening Dental Screen Date: 01/09/24 Did you have a dental visit in the last 12 months?: No Did you have a dental problem in the last 6 months where you did not have access to dental care?: No Was dental information given to patient?: Yes HPI HPI Comments History of Present Illness Details 63-year-old Frisian speaking male presents for hypertension follow-up He admits to taking his medications as prescribed without adverse reactions He notes he took his medications this morning He notes that he has been making healthy lifestyle changes including diet (limiting carbs such as rice, bread, pasta, potatoes). He notes that he has not been exercising because he works a lot and does not have time to exercise Interpretation by a professional receptionist nurse via electronic tablet [facility] Medical History Hypocholesterolemia Elevated prostate specific antigen [PSA] Erectile dysfunction Obesity due to excess calories Body mass index (BMI) greater than 30 in adult Type 2 diabetes mellitus with hyperglycemia Allergic rhinitis Overweight Hypertension Gastroesophageal reflux Insomnia Migraine Surgical History H/O prostate biopsy H/O left knee surgery Family History Father Hypertension Mother Hypertension Sister Heart problem Social History Housing: Apartment Alcohol intake: never Patient Tobacco Use Status: Former Tobacco user e-Cigarette/Vaping Use: Never Used Second Hand Smoke Exposure: No service: No Current occupational status: employed 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 Flaco Austin, Carolyn Calabrese, Adair Pyle and colleagues, with an educational binu from [employer]. Review of Systems Const Details: Const Denies chills, Denies fatigue, Denies fever(s), Denies headache(s) and Denies weakness ENT Denies dizziness and Denies headache(s) Card Denies chest pain, Denies lightheadedness, Denies dyspnea and Denies other (Palpitations) Resp Denies cough, Denies dyspnea, Denies wheezing and Denies other ( shortness of breath) GI Denies abdominal pain, Denies melena, Denies hematochezia, Denies change in bowel habits, Denies dyspepsia and Denies nausea Denies hematuria and Denies dysuria Musc Denies abnormal gait, Denies myalgias, Denies arthralgias, Denies numbness and Denies tingling Skin/Breast Denies rash, Denies unusual bruising and Denies wounds Neuro Denies abnormal gait, Denies dizziness, Denies headache(s), Denies memory loss, Denies numbness, Denies Sensory deficit (Neuro), Denies tingling and Denies weakness Psych Denies anxiety, Denies depression, Denies memory loss Endo Denies cold intolerance, Denies fatigue, Denies heat intolerance, Denies polydipsia and Denies polyuria Aller/Immun Denies wheezing Physical exam (Primary Care) Vital Signs: Last Vital Signs Temp 97.7 F 01/09/24 07:58 Pulse 90 01/09/24 07:58 Resp 13 01/09/24 07:58 BP 150/90 H 01/09/24 07:58 Pulse Ox 99 01/09/24 07:58 Oxygen Delivery Method Room Air 01/09/24 07:58 BMI result Body Mass Index 31.2 Tobacco/Smoking Status: Tobacco use Status Tobacco use date assessed 12/12/23 01/09/24 08:07 Patient Tobacco Use Status Former Tobacco user 01/09/24 08:07 e-Cigarette/Vaping Use Never Used 01/09/24 08:07 Thrive Assessment: Date of Thrive Assessment Date Thrive assessed 09/06/21 01/09/24 08:07 Const Other: General: no acute distress and well developed Nutritional Appearance: well nourished Orientation/consciousness: patient oriented x3 HENMT Head: Yes normocephalic and Yes atraumatic Eyes General: appearance normal, both eyes and all related structures Pupils: Equal, round and reactive pupils present EOM: EOMs intact bilaterally Resp Effort & Inspection: normal respiratory effort Auscultation: clear to auscultation bilaterally Cardio Rate: regular rate Rhythm: regular rhythm Heart sounds: S1 normal heart sound present, S2 normal heart sound present, no gallops, no murmurs and no rubs GI Palpation (GI): No Abdominal aortic bruit present, Soft to palpation, nontender, No hepatosplenomegaly present and No Rebound tenderness present Auscultation: normal bowel sounds General: Yes no CVA tenderness Back/Spine/Pelvis Back: no CVA tenderness Cervical Spine: cervical ROM normal and No Cervical spine tenderness Thoracic/Lumbar Spine: thoraco-lumbar ROM normal, No pain with thoraco-lumbar ROM, No thoracic spinal tenderness and No lumbar spinal tenderness Extrem General: Yes normal to inspection, No edema and No calf tenderness Skin General: warm and dry. Normal skin color. Normal skin turgor Neuro General: patient oriented x3, gait normal and no focal neuro deficit Cranial nerves: Yes Equal, round and reactive pupils present Cognition (Neuro): normal cognition Gait exam (Neuro): Normal gait present Sensory Exam: No Sensory deficit (Neuro) Psych Appearance: grossly normal Affect: normal affect Attitude: cooperative Thought process: Normal thought process present Assessment and Plan Assessment & Plan (1) Hypertension: Code(s): I10 - Essential (primary) hypertension Plan: Resting blood pressure is 140/80, above goal of less than 130/80 Will increase lisinopril-hydrochlorothiazide to 20-12.5 mg twice daily. Take as prescribed. Instructed adverse reactions to immediately report to his PCP Low-sodium diet and routine exercise encouraged Blood pressure monitor ordered. Advised to check blood pressure daily, record readings, and bring to his next appointment Follow-up in 1 week or return sooner with symptoms or concerns Verbalized understanding and agreed with treatment plan Medications: New miscellaneous medical supply One large BP cuff/monitor 1 ea 0RF miscellaneous medical supply One large BP cuff/monitor 1 ea 0RF Changed From lisinopril-hydrochlorothiazide 20-12.5 mg 1 tab PO DAILY 90 tabs 2RF To lisinopril-hydrochlorothiazide 20-12.5 mg 1 tab PO BID 90 days 180 tabs 1RF Coding Level of Care Code Est Pt Level 3 (53268) Diagnoses Hypertension I10
[2024-01-09 07:58] VITALS: BP 150/90; PULSE 90; RESP 13; TEMP 36.5; O2SAT 99; BMI 31.2
[2024-01-09 08:15] VITALS: BP 140/80
== END 2024-01-09 08:33 | disposition home or self-care (01) ==
PROVIDERS: PCP Nurse Practitioner Family; Visit Provider Nurse Practitioner Family
DX: I10 Essential (primary) hypertension (principal)
CPT/HCPCS: 99213

== ENCOUNTER 2024-01-15 09:21 | Outpatient (AMB) | payer BC, SELFPAY ==
--- NOTE | 2024-01-15 09:23 | A.OFFVIS_ITS ---
Intake Intake Visit Reasons: 6M PSA(set) Conf Intake Note: Patient presents today for a telehealth follow-up Meds- Finasteride, Allergies to Antibiotic- No Known Allergies Blood Thinner- None Medical Billing And Coding Specialist Required: Yes Allergies No Known Allergies Allergy (Verified 01/15/24 09:25) HPI HPI Comments History of Present Illness Details Migel is a pleasant male. He is seen for the following urologic conditions - erectile dysfunction - bladder outlet obstruction with elevat ed PSA Telemedicine Evaluation 15 min Consultation [employer] Video attempted [place] Islander translation provided by qualified ophthalmic medical assistant PSA remains stable on reduced finasteride dosage - Friday, Friday, Friday Stable urinary parameters with minimal nocturia and effective bladder emptying 12 month follow-up Elevated PSA Prior biopsy for PSA proximally 4 - negative PSA 08/07 2.4, 12/08 5.3, 05/08 1.2, 01/09 1.1, 07/09 1.5, 12/10 1.2 Did notice improved urinary parameters with less nocturia on finasteride Current therapy finasteride Erectile dysfunction secondary to diabetes Progressive Recent diagnosis of uncontrolled diabetes HBA1c 7.8% Poor response to on demand sildenafil Trial of high-dose daily tadalafil 10/07 poor response PFSH Medical History Hypocholesterolemia Elevated prostate specific antigen [PSA] Erectile dysfunction Obesity due to excess calories Body mass index (BMI) greater than 30 in adult Type 2 diabetes mellitus with hyperglycemia Allergic rhinitis Overweight Hypertension Gastroesophageal reflux Insomnia Migraine Surgical History H/O prostate biopsy H/O left knee surgery Family History Father Hypertension Mother Hypertension Sister Heart problem Social History Housing: Apartment Alcohol intake: never Patient Tobacco Use Status: Former Tobacco user e-Cigarette/Vaping Use: Never Used Second Hand Smoke Exposure: No service: No Current occupational status: employed 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 Current occupational exposures/hazards: No Cognitive needs: No Hearing needs: No Vision needs: No Review of Systems Const All systems reviewed & are unremarkable except as noted in HPI and below Reports no additional complaints Resp Reports no additional complaints GI Reports no additional complaints Reports as per HPI Musc Reports no additional complaints Physical Exam Telemedicine evaluation Appropriate responses Regular breathing rate and rhythm HEENT Head: Yes normal to inspection Ears: hearing grossly normal bilaterally Eyes General: appearance normal, both eyes and all related structures Neck Neck: Yes normal visual inspection Chest Chest palpation & inspection: normal inspection of the chest Resp Effort & Inspection: normal respiratory effort and able to speak in complete sentences Assessment & Plan Assessment & Plan (1) Elevated PSA: Code(s): R97.20 - Elevated prostate specific antigen [PSA] (2) Weak urinary stream: Code(s): R39.12 - Poor urinary stream Plan Twelve month follow-up PSA office Orders: Orders Prostate Specific Antigen 364 Days N32.0 - Bladder-neck obstruction Patient Instructions: Imaging studies, laboratory and physical exam results were discussed and reviewed in detail. No major barriers to patient understanding were identified. An opportunity to ask questions regarding the treatment plan was provided. All questions were answered. The patient expressed understanding and agreement with the above treatment plan. The patient is aware they should contact our office by phone for worsening of their current condition or the appearance of new urologic symptoms. Compliance is encouraged with any medications and followup testing that is ordered. It is a privilege to participate in the urologic care of your patient. If you have any questions or concerns regarding treatment for the above conditions, or other urologic issues, please do not hesitate to contact me. The office telephone contact is [phone]. This note is constructed using voice recognition software. While every effort has been made to ensure accuracy diversified crops supervisor errors may have been included. Yours sincerely, Dr David Orosco MD, [facility] Providers of Expert, Compassionate Care for the Genitourinary System Telehealth Telehealth Location of provider rendering services: practice address Location of patient: address on file Patient Identification confirmed using: Name, : Yes Telehealth method: video Patient verbally consented to treatment: Yes Patient verbally consented to billing insurance company: Yes Patient informed of any privacy concerns related to visit: Yes Coding Level of Care Code Tele Est Pt Level 3 (57220) Diagnoses Elevated PSA R97.20 Weak urinary stream R39.12
== END 2024-01-15 12:09 | disposition home or self-care (01) ==
LOC: HO.HUSH 09:22
PROVIDERS: PCP Nurse Practitioner Family; Visit Provider Urology
DX: R97.20 Elevated prostate specific antigen [PSA] (principal); R39.12 Poor urinary stream
CPT/HCPCS: 99213

== ENCOUNTER → 2024-01-15 09:21 | Outpatient (BNVA) | payer BC, SELFPAY | PROVIDERS: PCP Nurse Practitioner Family; Visit Provider Urology ==

== ENCOUNTER 2024-01-16 15:49 | Outpatient (AMB) | payer BC, SELFPAY ==
[2024-01-16 16:06] VITALS: BP 136/88; PULSE 75; RESP 13; TEMP 36.4; O2SAT 99; BMI 30.9
--- NOTE | 2024-01-16 16:06 | A.OFFPC_ITS ---
Vital Signs 01/16/24 16:06 01/16/24 16:29 Height 5 ft 10 in Weight 215 lb 2 oz BMI 30.9 BP 136/88 136/70 Blood Pressure Location Rt brachial Rt brachial Position Sitting Sitting Respiration 13 Pulse 75 Pulse Source Pulse Oximeter Temp 97.5 F Temp Source Temporal Artery Scan Pulse Oximetry (%) 99 Oxygen Delivery Method Room Air Intake Visit Reasons: 1 wk HTN Air Defense Specialist Required: No Accompanied by: Self / Same As Patient Allergies No Known Allergies Allergy (Verified 01/16/24 16:10) Tobacco use date assessed: 12/12/23 Dental Screening Dental Screen Date: 01/16/24 Did you have a dental visit in the last 12 months?: No Did you have a dental problem in the last 6 months where you did not have access to dental care?: No Was dental information given to patient?: Yes HPI HPI Comments History of Present Illness Details 63-year-old male presents for hypertensi on follow-up He admits to taking his medications as prescribed without adverse reactions He notes that he has been maintaining a lifestyle including diet and exercise He offers no complaints and denies acute symptoms at this time [facility] Medical History Hypocholesterolemia Elevated prostate specific antigen [PSA] Erectile dysfunction Obesity due to excess calories Body mass index (BMI) greater than 30 in adult Type 2 diabetes mellitus with hyperglycemia Allergic rhinitis Overweight Hypertension Gastroesophageal reflux Insomnia Migraine Surgical History H/O prostate biopsy H/O left knee surgery Family History Father Hypertension Mother Hypertension Sister Heart problem Social History Housing: Apartment Alcohol intake: never Patient Tobacco Use Status: Former Tobacco user e-Cigarette/Vaping Use: Never Used Second Hand Smoke Exposure: No service: No Current occupational status: employed 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 Flaco Austin, Carolyn Calabrese, Adair Pyle and colleagues, with an educational binu from [employer]. Review of Systems Const Details: Const Denies chills, Denies fatigue, Denies fever(s), Denies headache(s) and Denies weakness ENT Denies dizziness and Denies headache(s) Card Denies chest pain, Denies lightheadedness, Denies dyspnea and Denies other (Palpitations) Resp Denies cough, Denies dyspnea, Denies wheezing and Denies other ( shortness of breath) GI Denies abdominal pain, Denies melena, Denies hematochezia, Denies change in bowel habits, Denies dyspepsia and Denies nausea Denies hematuria and Denies dysuria Musc Denies abnormal gait, Denies myalgias, Denies arthralgias, Denies numbness and Denies tingling Skin/Breast Denies rash, Denies unusual bruising and Denies wounds Neuro Denies abnormal gait, Denies dizziness, Denies headache(s), Denies memory loss, Denies numbness, Denies Sensory deficit (Neuro), Denies tingling and Denies weakness Psych Denies anxiety, Denies depression, Denies memory loss Endo Denies cold intolerance, Denies fatigue, Denies heat intolerance, Denies polydipsia and Denies polyuria Aller/Immun Denies wheezing Physical exam (Primary Care) Vital Signs: Last Vital Signs Temp 97.5 F 01/16/24 16:06 Pulse 75 01/16/24 16:06 Resp 13 01/16/24 16:06 BP 136/88 01/16/24 16:06 Pulse Ox 99 01/16/24 16:06 Oxygen Delivery Method Room Air 01/16/24 16:06 BMI result Body Mass Index 30.9 Tobacco/Smoking Status: Tobacco use Status Tobacco use date assessed 12/12/23 01/16/24 16:11 Patient Tobacco Use Status Former Tobacco user 01/16/24 16:11 e-Cigarette/Vaping Use Never Used 01/16/24 16:11 Thrive Assessment: Date of Thrive Assessment Date Thrive assessed 09/06/21 01/16/24 16:11 Const Other: General: no acute distress and well developed Nutritional Appearance: well nourished Orientation/consciousness: patient oriented x3 HENMT Head: Yes normocephalic and Yes atraumatic Eyes General: appearance normal, both eyes and all related structures Pupils: Equal, round and reactive pupils present EOM: EOMs intact bilaterally Resp Effort & Inspection: normal respiratory effort Auscultation: clear to auscultation bilaterally Cardio Rate: regular rate Rhythm: regular rhythm Heart sounds: S1 normal heart sound present, S2 normal heart sound present, no gallops, no murmurs and no rubs GI Palpation (GI): No Abdominal aortic bruit present, Soft to palpation, nontender, No hepatosplenomegaly present and No Rebound tenderness present Auscultation: normal bowel sounds General: Yes no CVA tenderness Back/Spine/Pelvis Back: no CVA tenderness Cervical Spine: cervical ROM normal and No Cervical spine tenderness Thoracic/Lumbar Spine: thoraco-lumbar ROM normal, No pain with thoraco-lumbar ROM, No thoracic spinal tenderness and No lumbar spinal tenderness Extrem General: Yes normal to inspection, No edema and No calf tenderness Skin General: warm and dry. Normal skin color. Normal skin turgor Neuro General: patient oriented x3, gait normal and no focal neuro deficit Cranial nerves: Yes Equal, round and reactive pupils present Cognition (Neuro): normal cognition Gait exam (Neuro): Normal gait present Sensory Exam: No Sensory deficit (Neuro) Psych Appearance: grossly normal Affect: normal affect Attitude: cooperative Thought process: Normal thought process present Assessment and Plan Assessment & Plan (1) Hypertension: Code(s): I10 - Essential (primary) hypertension Qualifiers: Hypertension type: primary hypertension Qualified Code(s): I10 - Essential (primary) hypertension Plan: Resting blood pressure is 136/70, above goal of less than 130/80 Continue current treatment regimen Low-sodium diet and routine exercise encouraged Follow-up 6 weeks for hypertension and diabetes Return sooner with symptoms or concerns Verbalized understanding and agreed with treatment plan Coding Level of Care Code Est Pt Level 3 (35243) Diagnoses Primary hypertension I10 Hypertension type: primary hypertension
[2024-01-16 16:29] VITALS: BP 136/70
== END 2024-01-16 16:43 | disposition home or self-care (01) ==
PROVIDERS: PCP Nurse Practitioner Family; Visit Provider Nurse Practitioner Family
DX: I10 Essential (primary) hypertension (principal)
CPT/HCPCS: 99213

== ENCOUNTER 2024-02-13 11:33 | Outpatient (AMB) | payer BC, SELFPAY ==
[2024-02-13 11:36] VITALS: BP 134/70; PULSE 75; RESP 13; TEMP 36.6; O2SAT 99; BMI 30.6
--- NOTE | 2024-02-13 11:36 | MHC.PC.OV ---
Vital Signs 02/13/24 11:36 02/13/24 11:56 Height 5 ft 10 in Weight 213 lb BMI 30.6 BP 134/70 130/70 Blood Pressure Location Rt brachial Lt brachial Position Sitting Sitting Respiration 13 Pulse 75 Pulse Source Pulse Oximeter Temp 98 F Temp Source Temporal Artery Scan Pulse Oximetry (%) 99 Oxygen Delivery Method Room Air Intake Visit Reasons: f/u DM & HTN Allergies No Known Allergies Allergy (Verified 02/13/24 11:53) Medication List - Last Reconciled 02/13/24 by Sammy Marley CNP atorvastatin 20 mg PO DAILY blood pressure test kit-large check bp twice a day until stable then 2 times per week cholecalciferol (vitamin D3) 25 mcg PO DAILY 3 months finasteride 5 mg PO DAILY 90 days glipizide ER 20 mg (2 x 10 mg) PO DAILY 60 days lisinopril-hydrochlorothiazide 20-12.5 mg 1 tab PO BID 90 days metformin 1,000 mg PO BID miscellaneous medical supply One large BP cuff/monitor Tobacco use date assessed: 12/12/23 Dental Screening Dental Screen Date: 01/16/24 Did you have a dental visit in the last 12 months?: No Did you have a dental problem in the last 6 months where you did not have access to dental care?: No Was dental information given to patient?: Patient has dentist HPI HPI Comments History of Present Illness Details 63-year-old Hong Konger-speaking male presents for hypertension and diabetes follow-up He admits to taking his medications as prescribed without adverse reactions He admits to making healthy lifestyle changes, including limiting carbs and walking daily He offers no complaints and denies acute symptoms at this time Interpretation by professional sign language interpreter via electronic tablet [facility] Medical History Hypocholesterolemia Elevated prostate specific antigen [PSA] Erectile dysfunction Obesity due to excess calories Body mass index (BMI) greater than 30 in adult Type 2 diabetes mellitus with hyperglycemia Allergic rhinitis Overweight Hypertension Gastroesophageal reflux Insomnia Migraine Surgical History H/O prostate biopsy H/O left knee surgery Family History Father Hypertension Mother Hypertension Sister Heart problem Social History Housing: Apartment Alcohol intake: never Patient Tobacco Use Status: Former Tobacco user e-Cigarette/Vaping Use: Never Used Second Hand Smoke Exposure: No service: No Current occupational status: employed 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 Flaco Austin, Carolyn Calabrese, Adair Pyle and colleagues, with an educational binu from [employer]. Review of Systems Const Details: Const Denies chills, Denies fatigue, Denies fever(s), Denies headache(s) and Denies weakness ENT Denies dizziness and Denies headache(s) Card Denies chest pain, Denies lightheadedness, Denies dyspnea and Denies other (Palpitations) Resp Denies cough, Denies dyspnea, Denies wheezing and Denies other ( shortness of breath) GI Denies abdominal pain, Denies melena, Denies hematochezia, Denies change in bowel habits, Denies dyspepsia and Denies nausea Denies hematuria and Denies dysuria Musc Denies abnormal gait, Denies myalgias, Denies arthralgias, Denies numbness and Denies tingling Skin/Breast Denies rash, Denies unusual bruising and Denies wounds Neuro Denies abnormal gait, Denies dizziness, Denies headache(s), Denies memory loss, Denies numbness, Denies Sensory deficit (Neuro), Denies tingling and Denies weakness Psych Denies anxiety, Denies depression, Denies memory loss Endo Denies cold intolerance, Denies fatigue, Denies heat intolerance, Denies polydipsia and Denies polyuria Aller/Immun Denies wheezing Physical exam (Primary Care) Vital Signs: Last Vital Signs Temp 98 F 02/13/24 11:36 Pulse 75 02/13/24 11:36 Resp 13 02/13/24 11:36 BP 134/70 02/13/24 11:36 Pulse Ox 99 02/13/24 11:36 Oxygen Delivery Method Room Air 02/13/24 11:36 BMI result Body Mass Index 30.6 Tobacco/Smoking Status: Tobacco use Status Tobacco use date assessed 12/12/23 02/13/24 11:49 Patient Tobacco Use Status Former Tobacco user 02/13/24 11:49 e-Cigarette/Vaping Use Never Used 02/13/24 11:49 Thrive Assessment: Date of Thrive Assessment Date Thrive assessed 09/06/21 02/13/24 11:49 Const Other: General: no acute distress and well developed Nutritional Appearance: well nourished Orientation/consciousness: patient oriented x3 HENMT Head: Yes normocephalic and Yes atraumatic Eyes General: appearance normal, both eyes and all related structures Pupils: Equal, round and reactive pupils present EOM: EOMs intact bilaterally Resp Effort & Inspection: normal respiratory effort Auscultation: clear to auscultation bilaterally Cardio Rate: regular rate Rhythm: regular rhythm Heart sounds: S1 normal heart sound present, S2 normal heart sound present, no gallops, no murmurs and no rubs GI Palpation (GI): No Abdominal aortic bruit present, Soft to palpation, nontender, No hepatosplenomegaly present and No Rebound tenderness present Auscultation: normal bowel sounds General: Yes no CVA tenderness Back/Spine/Pelvis Back: no CVA tenderness Cervical Spine: cervical ROM normal and No Cervical spine tenderness Thoracic/Lumbar Spine: thoraco-lumbar ROM normal, No pain with thoraco-lumbar ROM, No thoracic spinal tenderness and No lumbar spinal tenderness Extrem General: Yes normal to inspection, No edema and No calf tenderness Skin General: warm and dry. Normal skin color. Normal skin turgor Neuro General: patient oriented x3, gait normal and no focal neuro deficit Cranial nerves: Yes Equal, round and reactive pupils present Cognition (Neuro): normal cognition Gait exam (Neuro): Normal gait present Sensory Exam: No Sensory deficit (Neuro) Psych Appearance: grossly normal Affect: normal affect Attitude: cooperative Thought process: Normal thought process present Assessment and Plan Assessment & Plan (1) Hypertension: Code(s): I10 - Essential (primary) hypertension Qualifiers: Hypertension type: primary hypertension Qualified Code(s): I10 - Essential (primary) hypertension Plan: Resting blood pressure is 130/70, slightly above goal of less than 130/80 Continue current treatment regimen Low-sodium diet encouraged Follow-up in 3 months or return sooner with symptoms or concerns Verbalized understanding and agreed with treatment plan (2) Diabetes type 2, uncontrolled: Code(s): E11.65 - Type 2 diabetes mellitus with hyperglycemia Qualifiers: Glycemic state: with hyperglycemia Qualified Code(s): E11.65 - Type 2 diabetes mellitus with hyperglycemia Plan: A1c today is 8.4%, above goal of less than 7.0%. Previous A1c was 8.5% Trulicity 0.75 mg weekly ordered. Take as prescribed. Instructed on risks, benefits, and adverse reactions Message sent to the nurse navigator to educate the patient on Trulicity and administration Continue to take metformin and glipizide as prescribed ADA diet and routine exercise encouraged Follow-up in 3 months Verbalized understanding and agreed with treatment plan Medications: New dulaglutide (Trulicity) 0.75 mg (0.5 mL) subcut QWEEK 4 weeks 2 mL 3RF Coding Level of Care Code Est Pt Level 4 (91748) Diagnoses Primary hypertension I10 Hypertension type: primary hypertension Uncontrolled type 2 diabetes mellitus with hyperglycemia E11.65 Glycemic state: with hyperglycemia
[2024-02-13 11:56] VITALS: BP 130/70
== END 2024-02-13 12:29 | disposition home or self-care (01) ==
PROVIDERS: PCP Nurse Practitioner Family; Visit Provider Nurse Practitioner Family
DX: I10 Essential (primary) hypertension (principal); E11.65 Type 2 diabetes mellitus with hyperglycemia
CPT/HCPCS: 99214

== ENCOUNTER 2024-05-10 07:55 | Outpatient (AMB) | payer BC, SELFPAY ==
[2024-05-10 08:11] VITALS: BP 140/76; PULSE 69; O2SAT 96; BMI 30.8
--- NOTE | 2024-05-10 08:11 | A.OFFPC_ITS ---
Vital Signs 05/10/24 08:11 05/10/24 08:24 Height 5 ft 10 in Weight 214 lb 8 oz BMI 30.8 BP 140/76 H Blood Pressure Location Lt brachial Position Sitting Pulse 69 76 Pulse Source Pulse Oximeter Auscultation Pulse Oximetry (%) 96 Oxygen Delivery Method Room Air Intake Visit Reasons: Follow up htn diabetes Allergies No Known Allergies Allergy (Verified 05/10/24 08:17) Medication List - Last Reconciled 05/10/24 by Sammy Marley CNP atorvastatin 20 mg PO DAILY blood pressure test kit-large check bp twice a day until stable then 2 times per week cholecalciferol (vitamin D3) 25 mcg PO DAILY 3 months dulaglutide (Trulicity) 0.75 mg (0.5 mL) subcut QWEEK 4 weeks finasteride 5 mg PO DAILY 90 days glipizide ER 20 mg (2 x 10 mg) PO DAILY 60 days lisinopril-hydrochlorothiazide 20-12.5 mg 1 tab PO BID 90 days metformin 1,000 mg PO BID miscellaneous medical supply One large BP cuff/monitor Tobacco use date assessed: 05/10/24 Dental Screening Dental Screen Date: 05/10/24 Did you have a dental visit in the last 12 months?: No Did you have a dental problem in the last 6 months where you did not have access to dental care?: No Was dental information given to patient?: Patient declined HPI HPI Comments History of Present Illness Details 63-year-old male presents for hypertensi on and diabetes follow-up He admits to taking his medications as prescribed without adverse reactions He admits to making healthy dietary changes including low carbs. He has been maintaining a low-salt diet. He exercises occasionally by walking He offers no complaints and denies acute symptoms at this time [facility] Medical History Hypocholesterolemia Elevated prostate specific antigen [PSA] Erectile dysfunction Obesity due to excess calories Body mass index (BMI) greater than 30 in adult Type 2 diabetes mellitus with hyperglycemia Allergic rhinitis Overweight Hypertension Gastroesophageal reflux Insomnia Migraine Surgical History H/O prostate biopsy H/O left knee surgery Family History Father Hypertension Mother Hypertension Sister Heart problem Social History Housing: Apartment Alcohol intake: never Patient Tobacco Use Status: Former Tobacco user e-Cigarette/Vaping Use: Never Used Second Hand Smoke Exposure: No service: No Current occupational status: employed 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 1. Little interest or pleasure in doing things: not at all 2. Feeling down, depressed, or hopeless: not at all 3. Trouble falling or staying asleep, or sleeping too much: not at all 4. Feeling tired or having little energy: not at all 5. Poor appetite or overeating: not at all 6. Feeling bad about yourself - or that you are a failure or have let yourself or your family down: not at all 7. Trouble concentrating on things, such as reading the newspaper or watching television: not at all 8. Moving or speaking so slowly that other people could have noticed. Or the opposite - being so fidgety or restless that you have been moving around a lot more than usual: not at all 9. Thoughts that you would be better off or of hurting yourself in some way: not at all Total score: 0 Depression Screening Interpretation: Negative Depression Screening Done: Yes 00624 - PHQ-9 Billing: Yes Source: Developed by Drs. Flaco Austin, Carolyn Calabrese, Adair Pyle and colleagues, with an educational binu from [employer]. Thrive Questionnaire Date Thrive assessed: 09/06/21 Currently or been in a relationship where the following occur: no concerns reported THRIVE Score: 0 AUDIT C Alcohol Use Questionnaire (AUDIT-C) 1. How often do you have a drink containing alcohol?: Never 3. How often do you have six or more drinks on one occasion?: Never Total Score: 0 FLORENTIN-7 AMB Questionnaire FLORENTIN-7 Date FLORENTIN - 7 assessed: 08/14/23 Feeling nervous, anxious, or on edge: 0 = Not at all Not being able to stop or control worryin = Not at all Worrying too much about different things: 0 = Not at all Trouble relaxin = Not at all Being so restless that it is hard to sit still: 0 = Not at all Becoming easily annoyed or irritable: 0 = Not at all Feeling afraid as if something awful might happen: 0 = Not at all Total FLORENTIN-7 score (0-4 normal; 5-9 mild; 10-14 moderate; 15-21 severe): 0 Source: Developed by Drs. Flaco Austin, Carolyn Calabrese, Adair Pyle and colleagues, with an educational binu from [employer]. FLORENTIN-7 Assessment Billing FLORENTIN-7 Assessment Tool: FLORENTIN-7 Assessment [id number] Review of Systems Const Details: Const Denies chills, Denies fatigue, Denies fever(s), Denies headache(s) and Denies weakness ENT Denies dizziness and Denies headache(s) Card Denies chest pain, Denies lightheadedness, Denies dyspnea and Denies other (Palpitations) Resp Denies cough, Denies dyspnea, Denies wheezing and Denies other ( shortness of breath) GI Denies abdominal pain, Denies melena, Denies hematochezia, Denies change in bowel habits, Denies dyspepsia and Denies nausea Denies hematuria and Denies dysuria Musc Denies abnormal gait, Denies myalgias, Denies arthralgias, Denies numbness and Denies tingling Skin/Breast Denies rash, Denies unusual bruising and Denies wounds Neuro Denies abnormal gait, Denies dizziness, Denies headache(s), Denies memory loss, Denies numbness, Denies Sensory deficit (Neuro), Denies tingling and Denies weakness Psych Denies anxiety, Denies depression, Denies memory loss Endo Denies cold intolerance, Denies fatigue, Denies heat intolerance, Denies polydipsia and Denies polyuria Aller/Immun Denies wheezing Physical exam (Primary Care) Vital Signs: Last Vital Signs Pulse 76 05/10/24 08:24 BP 140/76 H 05/10/24 08:11 Pulse Ox 96 05/10/24 08:11 Oxygen Delivery Method Room Air 05/10/24 08:11 BMI result Body Mass Index 30.8 Tobacco/Smoking Status: Tobacco use Status Tobacco use date assessed 05/10/24 05/10/24 08:15 Patient Tobacco Use Status Former Tobacco user 05/10/24 08:15 e-Cigarette/Vaping Use Never Used 05/10/24 08:15 PHQ-9: PHQ-9 Score PHQ-9: Total score 0 05/10/24 08:20 Depression Screening Interpretation: Negative Thrive Assessment: Date of Thrive Assessment Date Thrive assessed 09/06/21 05/10/24 08:15 Currently or been in a relationship where the following occur: no concerns reported Const Other: General: no acute distress and well developed Nutritional Appearance: well nourished Orientation/consciousness: patient oriented x3 HENMT Head: Yes normocephalic and Yes atraumatic Eyes General: appearance normal, both eyes and all related structures Pupils: Equal, round and reactive pupils present EOM: EOMs intact bilaterally Resp Effort & Inspection: normal respiratory effort Auscultation: clear to auscultation bilaterally Cardio Rate: regular rate Rhythm: regular rhythm Heart sounds: S1 normal heart sound present, S2 normal heart sound present, no gallops, no murmurs and no rubs GI Palpation (GI): No Abdominal aortic bruit present, Soft to palpation, nontender, No hepatosplenomegaly present and No Rebound tenderness present Auscultation: normal bowel sounds General: Yes no CVA tenderness Back/Spine/Pelvis Back: no CVA tenderness Cervical Spine: cervical ROM normal and No Cervical spine tenderness Thoracic/Lumbar Spine: thoraco-lumbar ROM normal, No pain with thoraco-lumbar ROM, No thoracic spinal tenderness and No lumbar spinal tenderness Extrem General: Yes normal to inspection, No edema and No calf tenderness Skin General: warm and dry. Normal skin color. Normal skin turgor Neuro General: patient oriented x3, gait normal and no focal neuro deficit Cranial nerves: Yes Equal, round and reactive pupils present Cognition (Neuro): normal cognition Gait exam (Neuro): Normal gait present Sensory Exam: No Sensory deficit (Neuro) Psych Appearance: grossly normal Affect: normal affect Attitude: cooperative Thought process: Normal thought process present Results AMB Hemoglobin A1c AMB Hemoglobin A1c 7.5 % Last Edit by Joyce Mathias CMA on 05/10/24 09:45 Results Reviewed Results Reviewed: Laboratory Last Values Hgb A1c (Clinic) 7.5 % (4.0-6.0) H 05/10/24 09:44 Assessment and Plan Assessment & Plan (1) Hypertension: Code(s): I10 - Essential (primary) hypertension Qualifiers: Hypertension type: primary hypertension Qualified Code(s): I10 - Essential (primary) hypertension Plan: Blood pressure is 140/76, above goal of less than 130/80 Will start amlodipine 2.5 mg daily Continue to take lisinopril-hydrochlorothiazide 20-25 mg twice daily Low-sodium diet encouraged Follow-up in 2 weeks or return sooner with symptoms such as lightheadedness/dizziness or concerns Verbalized understanding and agreed with the treatment plan (2) Diabetes type 2, uncontrolled: Code(s): E11.65 - Type 2 diabetes mellitus with hyperglycemia Qualifiers: Glycemic state: with hyperglycemia Qualified Code(s): E11.65 - Type 2 diabetes mellitus with hyperglycemia Plan: A1c today is 7.5%, slightly above goal of less than 7.0%. Previous A1c was 8.4% Continue to take metformin, glipizide, and Trulicity as prescribed ADA diet and routine exercise encouraged Will recheck A1c in 3 months Verbalized understanding and agreed with the plan Orders: Orders AMB Hemoglobin A1c Today E11.9 - Type 2 diabetes mellitus without complications Medications: New amlodipine 2.5 mg PO DAILY 30 tabs 1RF 30 days Coding Level of Care Code Est Pt Level 4 (26384) Complex EM visit Add On [id number] Diagnoses Primary hypertension I10 Hypertension type: primary hypertension Uncontrolled type 2 diabetes mellitus with hyperglycemia E11.65 Glycemic state: with hyperglycemia Additional Codes FLORENTIN-7 Assessment Billing - FLORENTIN-7 Assessment Tool: FLORENTIN-7 Assessment [id number] ([id number])
[2024-05-10 08:24] VITALS: PULSE 76
== END 2024-05-10 08:35 | disposition home or self-care (01) ==
PROVIDERS: PCP Nurse Practitioner Family; Visit Provider Nurse Practitioner Family
DX: I10 Essential (primary) hypertension (principal); E11.65 Type 2 diabetes mellitus with hyperglycemia
CPT/HCPCS: 83036; 99214

== ENCOUNTER 2024-05-24 11:07 | Outpatient (AMB) | payer BC, SELFPAY ==
--- NOTE | 2024-05-24 11:26 | A.OFFPC_ITS ---
Vital Signs 05/24/24 11:38 05/24/24 12:12 Height 5 ft 10 in Weight 211 lb 6 oz BMI 30.3 BP 140/80 H 130/70 Blood Pressure Location Lt brachial Rt brachial Position Sitting Sitting Pulse 80 Pulse Source Pulse Oximeter Temp 97.7 F Temp Source Core Pulse Oximetry (%) 97 Oxygen Delivery Method Room Air Intake Visit Reasons: 2 wks HTN Intake Note: patient here for blood pressure follow up, patient would also like refill of Trulicity. Allergies No Known Allergies Allergy (Verified 05/24/24 12:10) Medication List - Last Reconciled 05/24/24 by Sammy Marley CNP amlodipine 2.5 mg PO DAILY 30 days atorvastatin 20 mg PO DAILY blood pressure test kit-large check bp twice a day until stable then 2 times per week cholecalciferol (vitamin D3) 25 mcg PO DAILY 3 months dulaglutide (Trulicity) 0.75 mg (0.5 mL) subcut QWEEK 4 weeks finasteride 5 mg PO DAILY 90 days glipizide ER 20 mg (2 x 10 mg) PO DAILY 60 days lisinopril-hydrochlorothiazide 20-12.5 mg 1 tab PO BID 90 days metformin 1,000 mg PO BID miscellaneous medical supply One large BP cuff/monitor Tobacco use date assessed: 05/10/24 Dental Screening Dental Screen Date: 05/10/24 HPI HPI Comments History of Present Illness Details 63-year-old male presents for hypertensi on follow-up He admits to taking his medications as prescribed without adverse reactions He offers no complaints and denies acute symptoms at this time [facility] Medical History Hypocholesterolemia Elevated prostate specific antigen [PSA] Erectile dysfunction Obesity due to excess calories Body mass index (BMI) greater than 30 in adult Type 2 diabetes mellitus with hyperglycemia Allergic rhinitis Overweight Hypertension Gastroesophageal reflux Insomnia Migraine Surgical History H/O prostate biopsy H/O left knee surgery Family History Father Hypertension Mother Hypertension Sister Heart problem Social History Housing: Apartment Alcohol intake: never Patient Tobacco Use Status: Former Tobacco user e-Cigarette/Vaping Use: Never Used Second Hand Smoke Exposure: No service: No Current occupational status: employed 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 Flaco Austin, Carolyn Calabrese, Adair Pyle and colleagues, with an educational binu from [employer]. Review of Systems Const Details: Const Denies chills, Denies fatigue, Denies fever(s), Denies headache(s) and Denies w eakness ENT Denies dizziness and Denies headache(s) Card Denies chest pain, Denies lightheadedness, Denies dyspnea and Denies other (Palpitations) Resp Denies cough, Denies dyspnea, Denies wheezing and Denies other ( shortness of breath) GI Denies abdominal pain, Denies melena, Denies hematochezia, Denies change in bowel habits, Denies dyspepsia and Denies nausea Denies hematuria and Denies dysuria Musc Denies abnormal gait, Denies myalgias, Denies arthralgias, Denies numbness and Denies tingling Skin/Breast Denies rash, Denies unusual bruising and Denies wounds Neuro Denies abnormal gait, Denies dizziness, Denies headache(s), Denies memory loss, Denies numbness, Denies Sensory deficit (Neuro), Denies tingling and Denies weakness Psych Denies anxiety, Denies depression, Denies memory loss Endo Denies cold intolerance, Denies fatigue, Denies heat intolerance, Denies polydipsia and Denies polyuria Aller/Immun Denies wheezing Physical exam (Primary Care) Vital Signs: Last Vital Signs Temp 97.7 F 05/24/24 11:38 Pulse 80 05/24/24 11:38 BP 140/80 H 05/24/24 11:38 Pulse Ox 97 05/24/24 11:38 Oxygen Delivery Method Room Air 05/24/24 11:38 BMI result Body Mass Index 30.3 Tobacco/Smoking Status: Tobacco use Status Tobacco use date assessed 05/10/24 05/24/24 11:28 Patient Tobacco Use Status Former Tobacco user 05/24/24 11:28 e-Cigarette/Vaping Use Never Used 05/24/24 11:28 Thrive Assessment: Date of Thrive Assessment Date Thrive assessed 09/06/21 05/24/24 11:28 Const Other: General: no acute distress and well developed Nutritional Appearance: well nourished Orientation/consciousness: patient oriented x3 HENMT Head: Yes normocephalic and Yes atraumatic Eyes General: appearance normal, both eyes and all related structures Pupils: Equal, round and reactive pupils present EOM: EOMs intact bilaterally Resp Effort & Inspection: normal respiratory effort Auscultation: clear to auscultation bilaterally Cardio Rate: regular rate Rhythm: regular rhythm Heart sounds: S1 normal heart sound present, S2 normal heart sound present, no gallops, no murmurs and no rubs GI Palpation (GI): No Abdominal aortic bruit present, Soft to palpation, nontender, No hepatosplenomegaly present and No Rebound tenderness present Auscultation: normal bowel sounds General: Yes no CVA tenderness Back/Spine/Pelvis Back: no CVA tenderness Cervical Spine: cervical ROM normal and No Cervical spine tenderness Thoracic/Lumbar Spine: thoraco-lumbar ROM normal, No pain with thoraco-lumbar ROM, No thoracic spinal tenderness and No lumbar spinal tenderness Extrem General: Yes normal to inspection, No edema and No calf tenderness Skin General: warm and dry. Normal skin color. Normal skin turgor Neuro General: patient oriented x3, gait normal and no focal neuro deficit Cranial nerves: Yes Equal, round and reactive pupils present Cognition (Neuro): normal cognition Gait exam (Neuro): Normal gait present Sensory Exam: No Sensory deficit (Neuro) Psych Appearance: grossly normal Affect: normal affect Attitude: cooperative Thought process: Normal thought process present Assessment and Plan Assessment & Plan (1) Hypertension: Code(s): I10 - Essential (primary) hypertension Qualifiers: Hypertension type: primary hypertension Qualified Code(s): I10 - Essential (primary) hypertension Plan: Resting blood pressure is 130/70, slightly above goal of less than 130/80 Continue current treatment regimen Low-sodium diet encouraged Follow-up in 7 weeks for an extended physical exam, hypertension, and diabetes Return sooner with symptoms or concerns Verbalized understanding and agreed with the treatment plan (2) Laboratory tests ordered as part of a complete physical exam (CPE): Code(s): Z00.00 - Encounter for general adult medical examination without abnormal f indings Plan: Fasting labs ordered in preparation t of a complete physical exam. Advised to fast for at least 10 hours before getting labs drawn at least a few days before his next visit. May drink water Verbalized understanding and agreed with treatment plan. Orders: Orders Complete Blood Count Auto Diff Today Z00.00 - Encounter for general adult medical examination without abnormal findings Comprehensive [place]. Panel Fast Today Z00.00 - Encounter for general adult medical examination without abnormal findings Lipid Panel Today Z00.00 - Encounter for general adult medical examination without abnormal findings TSH reflex Free T4 Today Z00.00 - Encounter for general adult medical examination without abnormal findings UA CC w/rflx Micro + Cult Today Z00.00 - Encounter for general adult medical examination without abnormal findings Microalbumin, Random (w Creat) Today Z00.00 - Encounter for general adult medical examination without abnormal findings Medications: Refilled dulaglutide (Trulicity) 0.75 mg (0.5 mL) subcut QWEEK 4 weeks 2 mL 3RF Coding Level of Care Code Est Pt Level 3 (63012) Diagnoses Primary hypertension I10 Hypertension type: primary hypertension Laboratory tests ordered as part of a complete physical exam (CPE) Z00.00
[2024-05-24 11:38] VITALS: BP 140/80; PULSE 80; TEMP 36.5; O2SAT 97; BMI 30.3
[2024-05-24 12:12] VITALS: BP 130/70
== END 2024-05-24 12:21 | disposition home or self-care (01) ==
PROVIDERS: PCP Nurse Practitioner Family; Visit Provider Nurse Practitioner Family
DX: I10 Essential (primary) hypertension (principal); Z00.00 Encounter for general adult medical examination without abnormal findings
CPT/HCPCS: 99213

== ENCOUNTER 2024-08-17 05:58 | Outpatient (REF) | payer BC, SELFPAY ==
[2024-08-17 06:09] LABS: MANUAL DIFF FLAG NO
[2024-08-17 07:11] LABS: Basophils Percent Auto 0.3 % (0-2); Eosinophils Absolute Auto 0.1 X10*3/uL (0.0-0.4); Eosinophils Percent Auto 1.4 % (0-4); Hematocrit 40.1 % (42.0-52.0); Hemoglobin 13.1 g/dl (14.0-18.0); Imm Gran Abs Auto 0.03 X10*3/uL (0.00-0.03); Imm Gran Pct Auto 0.3 % (0.0-0.4); Lymphocytes Absolute Auto 2.5 X10*3/uL (1.2-4.9); Mean Corpuscular HGB Conc 32.7 g/dl (31.0-36.0); Mean Corpuscular Hemoglobin 28.4 pg (27.0-33.0); Mean Platelet Volume 10.8 fL (9.4-12.4); Monocytes Absolute Auto 0.7 X10*3/uL (0.1-1.2); Monocytes Percent Auto 8.1 % (2-11); Neutrophils Absolute Auto 5.3 x10*3/uL (2.0-8.3); Neutrophils Percent Auto 60.9 % (45-73); Platelet Count 289 X10*3/uL (160-400); Red Blood Count 4.61 X10*6/uL (4.60-5.80); Red Cell Distribution Width 13.7 % (11.0-16.0); White Blood Count 8.8 X10*3/uL (4.8-10.8)
[2024-08-17 07:57] LABS: Alanine Aminotransferase 11 U/L (0-40); Albumin Level 4.2 g/dL (3.5-5.0); Alkaline Phosphatase 29 U/L (39-117); Anion Gap 16 (12-20); Aspartate Amino Transferase 11 U/L (5-37); Bilirubin Total 0.4 mg/dL (0.0-1.0); Blood Urea Nitrogen 25 mg/dL (9-16); Calcium 9.5 mg/dL (8.4-10.2); Carbon Dioxide 24 mmol/L (22-29); Chloride 103 mmol/L (96-108); Cholesterol 106 mg/dL (<200); Estimated Glomerular Filt Rate > 60; Glucose Fasting 161 mg/dL (60-99); HDL Cholesterol 42 mg/dL (>40); LDL Cholesterol Calculated 53 mg/dL (<100); Potassium 4.1 mmol/L (3.3-5.1); Sodium 139 mmol/L (135-145); Total Protein 7.3 g/dL (6.5-8.0); Triglycerides 55 mg/dL (<150)
[2024-08-17 08:11] LABS: TSH reflex Free T4 2.79 uIU/mL (0.32-4.0)
== END 2024-08-17 05:59 | disposition home or self-care (01) ==
LOC: HO.LAB 05:58
PROVIDERS: PCP Nurse Practitioner Family; Visit Provider Nurse Practitioner Family
DX: Z00.00 Encounter for general adult medical examination without abnormal findings (principal)
CPT/HCPCS: 36415; 80053; 80061; 84443; 85025

== ENCOUNTER 2024-08-23 07:51 | Outpatient (AMB) | payer BC, SELFPAY ==
--- NOTE | 2024-08-23 07:57 | MHC.PC.OV ---
Vital Signs 08/23/24 08:09 08/23/24 08:32 Height 5 ft 10 in Weight 212 lb 6 oz BMI 30.5 BP 136/78 130/74 Blood Pressure Location Rt brachial Rt brachial Position Sitting Sitting Respiration 16 Pulse 74 Pulse Source Pulse Oximeter Temp 97.6 F Temp Source Oral Pulse Oximetry (%) 99 Oxygen Delivery Method Room Air Intake Visit Reasons: annual htn dm Intake Note: patient here for CPE and DM. 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: Liberian Allergies No Known Allergies Allergy (Verified 08/23/24 08:15) Medication List - Last Reconciled 08/23/24 by Sammy Marley CNP amlodipine 2.5 mg PO DAILY 30 days atorvastatin 20 mg PO DAILY blood pressure test kit-large check bp twice a day until stable then 2 times per week cholecalciferol (vitamin D3) 25 mcg PO DAILY 3 months dulaglutide (Trulicity) 0.75 mg (0.5 mL) subcut QWEEK 4 weeks finasteride 5 mg PO DAILY 90 days glipizide ER 20 mg (2 x 10 mg) PO DAILY 60 days lisinopril-hydrochlorothiazide 20-12.5 mg 1 tab PO BID 90 days metformin 1,000 mg PO BID miscellaneous medical supply One large BP cuff/monitor Tobacco use date assessed: 08/23/24 Dental Screening Dental Screen Date: 08/23/24 Did you have a dental visit in the last 12 months?: No Did you have a dental problem in the last 6 months where you did not have access to dental care?: No Was dental information given to patient?: Patient has dentist HPI HPI Comments History of Present Illness Details 64-year-old mostly Liberian-speaking male presents for physical exam.He has past medical history significant for type 2 diabetes, hypertension, hypercholesterolemia, vitamin-D deficiency, and bladder outlet obstruction He admits to taking his medications as prescribed without adverse reactions He admits to healthy lifestyle changes, including diet and exercise He denies acute symptoms at this time Former smoker. Does not drink alcohol. No recreational drugs He states that his last eye exam was 2-3 years ago, in [place] (does not recall name of practice or provider). Encouraged to call and schedule an appointment for diabetic eye exam He states he has not been evaluated by a podiatry. He was referred to podiatry. He notes that his appointment was not scheduled after he told them he has no issues with his feet He notes his last colonoscopy was at [facility] [place]: normal. His next colonoscopy is due in 2024 He is followed by [facility] urology. His last appointment was 01/15/24 He states he has never had the shingrix vaccines Last Tdap was in 10/2019 He was vaccinated for the flu last month His last dental appointment was 2 years ago. He will call his dentist and schedule and appointment [facility] Medical History Hypocholesterolemia Elevated prostate specific antigen [PSA] Erectile dysfunction Obesity due to excess calories Body mass index (BMI) greater than 30 in adult Type 2 diabetes mellitus with hyperglycemia Allergic rhinitis Overweight Hypertension Gastroesophageal reflux Insomnia Migraine Surgical History H/O prostate biopsy H/O left knee surgery Family History Father Hypertension Mother Hypertension Sister Heart problem Social History Housing: Apartment Alcohol intake: never Patient Tobacco Use Status: Former Tobacco user e-Cigarette/Vaping Use: Never Used Second Hand Smoke Exposure: No service: No Current occupational status: employed Current occupation: [employer] Current occupational exposures/hazards: No Cognitive needs: No Hearing needs: No Vision needs: No Questionnaire PHQ-9 Over the last 2 weeks, how often have you been bothered by any of the following problems? 1. Little interest or pleasure in doing things: more than half the days 2. Feeling down, depressed, or hopeless: not at all 3. Trouble falling or staying asleep, or sleeping too much: not at all 4. Feeling tired or having little energy: not at all 5. Poor appetite or overeating: not at all 6. Feeling bad about yourself - or that you are a failure or have let yourself or your family down: not at all 7. Trouble concentrating on things, such as reading the newspaper or watching television: not at all 8. Moving or speaking so slowly that other people could have noticed. Or the opposite - being so fidgety or restless that you have been moving around a lot more than usual: not at all 9. Thoughts that you would be better off or of hurting yourself in some way: not at all Total score: 2 Depression Screening Interpretation: Negative Depression Screening Done: Yes 61308 - PHQ-9 Billing: Yes Source: Developed by Drs. Flaco Austin, Carolyn Calabrese, Adair Pyle and colleagues, with an educational binu from [employer]. Thrive Questionnaire Date Thrive assessed: 08/23/24 I am a: Patient What is your living situation today?: I have a steady place to live Within the past 12 months, did the food you bought not last and you didn't have the money to get more?: Never true Within the past 12 months, did you worry whether your food would run out before you got money to buy more?: Never true Do you have trouble paying for medicines?: No Do you have trouble getting transportation to medical appointments?: No Do you have trouble paying your heating and electricity bill?: No Do you have trouble taking care of your child, family member or friend?: No Do you have trouble with day-to-day activities such as bathing, preparing meals, shopping, managing finances, etc.?: No Are you currently unemployed and looking for a job?: No Are you interested in more education?: No Please select the resources that you would like help with: None Currently or been in a relationship where the following occur: No concerns reported THRIVE Score: 0 AUDIT C Alcohol Use Questionnaire (AUDIT-C) 1. How often do you have a drink containing alcohol?: Never Total Score: 0 Score Reviewed/Action Taken: Yes FLORENTIN-7 AMB Questionnaire FLORENTIN-7 Date FLORENTIN - 7 assessed: 08/23/24 Feeling nervous, anxious, or on edge: 0 = Not at all Not being able to stop or control worryin = Not at all Worrying too much about different things: 0 = Not at all Trouble relaxin = Not at all Being so restless that it is hard to sit still: 0 = Not at all Becoming easily annoyed or irritable: 0 = Not at all Feeling afraid as if something awful might happen: 0 = Not at all Total FLORENTIN-7 score (0-4 normal; 5-9 mild; 10-14 moderate; 15-21 severe): 0 Source: Developed by Drs. Flaco Austin, Carolyn Calabrese, Adair Pyle and colleagues, with an educational binu from [employer]. FLORENTIN-7 Assessment Billing FLORENTIN-7 Assessment Tool: FLORENTIN-7 Assessment 46502 Review of Systems Const Details: Denies chills, Denies fatigue, Denies fever(s), Denies headache(s) and Denies weakness HEENT Denies change in vision, Denies dizziness, Denies headache(s), Denies hearing loss, Denies nasal congestion, Denies sinus pain, Denies sinus pressure and Denies sore throat Card Denies chest pain, Denies lightheadedness, Denies dyspnea and Denies other (palpitations) Resp Denies cough, Denies dyspnea and Denies wheezing GI Denies abdominal pain, Denies melena, Denies hematochezia, Denies change in bowel habits, Denies dyspepsia and Denies nausea Denies hematuria and Denies dysuria Musc Denies abnormal gait, Denies myalgias, Denies arthralgias, Denies numbness and Denies tingling Skin/Breast Denies rash, Denies unusual bruising and Denies wounds Neuro Denies abnormal gait, Denies dizziness, Denies headache(s), Denies memory loss, Denies numbness, Denies Sensory deficit (Neuro), Denies tingling and Denies weakness Psych Denies anxiety, Denies depression and Denies memory loss Endo Denies cold intolerance, Denies fatigue, Denies heat intolerance, Denies polydipsia and Denies polyuria Rodney/Lymph Denies easy bleeding and Denies easy bruising Aller/Immun Denies wheezing Physical exam (Primary Care) Vital Signs: Last Vital Signs Temp 97.6 F 08/23/24 08:09 Pulse 74 08/23/24 08:09 Resp 16 08/23/24 08:09 Pulse Ox 99 08/23/24 08:09 Oxygen Delivery Method Room Air 08/23/24 08:09 BMI result Body Mass Index 30.5 Tobacco/Smoking Status: Tobacco use Status Tobacco use date assessed 08/23/24 08/23/24 08:09 Patient Tobacco Use Status Former Tobacco user 08/23/24 08:01 e-Cigarette/Vaping Use Never Used 08/23/24 08:01 Depression Screening Interpretation: Negative Thrive Assessment: Date of Thrive Assessment Date Thrive assessed 09/06/21 08/23/24 08:01 Currently or been in a relationship where the following occur: No concerns reported Const Other: General: no acute distress, well developed, alert and awake Nutritional Appearance: well nourished Orientation/consciousness: patient oriented x3 [facility] Head: Yes normocephalic and Yes atraumatic Ears: hearing grossly normal bilaterally and TM's normal bilaterally General nose exam: Normal external nose present and Normal nares present Mouth: Normal oral and palatal mucosa present and moist mucous membranes Teeth and gingiva: dentition normal Throat: Yes oropharynx normal Eyes Pupils: Equal, round and reactive pupils present and Pupil accommodation reflex normal EOM: EOMs intact bilaterally Neck Neck: Yes normal visual inspection, Yes no lymphadenopathy and Yes trachea midline Thyroid: Thyroid normal Carotids: no bruits Lymphatic: no lymphadenopathy noted Chest Chest palpation & inspection: normal inspection of the chest Resp Effort & Inspection: normal respiratory effort Auscultation: clear to auscultation bilaterally Cardio Rate: regular rate Rhythm: regular rhythm Heart sounds: S1 normal heart sound present, S2 normal heart sound present, no gallops, no murmurs and no rubs Bruits: no abdominal aortic bruits and no carotid bruits GI Palpation (GI): No Abdominal aortic bruit present, Soft to palpation, nontender, No hepatosplenomegaly present and No Rebound tenderness present Auscultation: normal bowel sounds General: Yes no CVA tenderness Back/Spine/Pelvis Back: no CVA tenderness Cervical Spine: cervical ROM normal and No Cervical spine tenderness Thoracic/Lumbar Spine: thoraco-lumbar ROM normal, No pain with thoraco-lumbar ROM, No thoracic spinal tenderness and No lumbar spinal tenderness Skin General: warm and dry. Normal skin color. Normal skin turgor Lesions: no lesions Rashes: no rashes Trauma: no lacerations or abrasions Wounds: no wounds Nails: normal Neuro General: patient oriented x3, gait normal and CN's II-XI intact bilaterally Cranial nerves: Yes Equal, round and reactive pupils present Cognition (Neuro): normal cognition Gait exam (Neuro): Normal gait present Motor exam (neuro): 5/5 motor strength present throughout Sensory Exam: No Sensory deficit (Neuro) Deep tendon reflexes (DTR's): Right patellar reflex intensity grade: 2+ and Left patellar reflex intensity grade: 2+ Extrem General: Yes normal to inspection, No edema and No calf tenderness Psych Appearance: grossly normal Affect: normal affect Attitude: cooperative Thought process: Normal thought process present Results AMB Hemoglobin A1c AMB Hemoglobin A1c 7.3 % Last Edit by Cassandra Horne MA on 08/23/24 08:22 Coding Level of Care Code Est Pt Level 4 (54214) Est Pt Prev Care 40-64y(07592) Diagnoses Normal physical examination, routine Z00.00 Uncontrolled type 2 diabetes mellitus with hyperglycemia E11.65 Glycemic state: with hyperglycemia Primary hypertension I10 Hypertension type: primary hypertension Colon cancer screening Z12.11 Vaccine counseling Z71.85 Additional Codes FLORENTIN-7 Assessment Billing - FLORENTIN-7 Assessment Tool: FLORENTIN-7 Assessment 51275 ([id number]) Assessment & Plan Assessment & Plan (1) Normal physical examination, routine: Code(s): Z00.00 - Encounter for general adult medical examination without abnormal findings Category: Medical Plan: No significant physical restrictions or limitations noted Continue current treatment regimen Healthy diet and routine exercise encouraged Advised to make an appointment with his superintendent sales and dentist Follow-up in 3 months for diabetes and hypertension or sooner with symptoms or concerns Verbalized understanding and agreed with the treatment plan (2) Diabetes type 2, uncontrolled: Code(s): E11.65 - Type 2 diabetes mellitus with hyperglycemia Category: Medical Qualifiers: Glycemic state: with hyperglycemia Qualified Code(s): E11.65 - Type 2 diabetes mellitus with hyperglycemia Plan: A1c today is 7.3%, slightly above goal of less than 7.0%. Previous A1c was 7.5% Will increase Trulicity to 1.5 mg weekly. Advised to administer as prescribed Continue to take glipizide and metformin as prescribed Instructed on importance of routine foot care and encouraged to follow-up when call to schedule an appointment Referred to Podiatry again Follow-up in 3 months Verbalized understanding and agreed with the plan (3) Hypertension: Code(s): I10 - Essential (primary) hypertension Category: Medical Qualifiers: Hypertension type: primary hypertension Qualified Code(s): I10 - Essential (primary) hypertension Plan: Resting blood pressure is 130/74, slightly above goal of less than 130/80 Continue current treatment regimen Low-sodium diet encouraged Follow-up in 3 months Verbalized understanding and agreed with the plan (4) Colon cancer screening: Code(s): Z12.11 - Encounter for screening for malignant neoplasm of colon Category: Medical Plan: He notes his last colonoscopy was at [facility] in 2014: normal. His next colonoscopy is due in 2024 Referred to [facility] gastroenterology for a colonoscopy (5) Vaccine counseling: Code(s): Z71.85 - Encounter for immunization safety counseling Category: Medical Plan: He has never been vaccinated for shingles Instructed on importance of vaccination and encouraged to get vaccinated for shingles. He may get the vaccines from his local pharmacy Verbalized understanding and agreed with the plan Orders: Orders AMB Hemoglobin A1c Today Z13.9 - Encounter for screening, unspecified Referrals Gastroenterology Referral Z12.11 - Encounter for screening for malignant neoplasm of colon Medications: Changed From dulaglutide (Trulicity) 0.75 mg (0.5 mL) subcut QWEEK 4 weeks 2 mL 3RF To dulaglutide (Trulicity) 1.5 mg subcut QWEEK 4 weeks 4 mL 3RF
[2024-08-23 08:09] VITALS: BP 136/78; PULSE 74; RESP 16; TEMP 36.4; O2SAT 99; BMI 30.5
[2024-08-23 08:32] VITALS: BP 130/74
== END 2024-08-23 08:41 | disposition home or self-care (01) ==
PROVIDERS: PCP Nurse Practitioner Family; Visit Provider Nurse Practitioner Family
DX: Z00.00 Encounter for general adult medical examination without abnormal findings (principal); E11.65 Type 2 diabetes mellitus with hyperglycemia; I10 Essential (primary) hypertension; Z12.11 Encounter for screening for malignant neoplasm of colon; Z71.85 Encounter for immunization safety counseling

== ENCOUNTER → 2024-08-23 07:51 | Outpatient (BNVA) | payer BC, SELFPAY | PROVIDERS: PCP Nurse Practitioner Family; Visit Provider Nurse Practitioner Family | DX: Z00.00 Encounter for general adult medical examination without abnormal findings (principal); E11.65 Type 2 diabetes mellitus with hyperglycemia; I10 Essential (primary) hypertension; Z79.84 Long term (current) use of oral hypoglycemic drugs; Z71.85 Encounter for immunization safety counseling | CPT/HCPCS: 83036; 96127 ==

== ENCOUNTER 2024-08-23 08:50 | Outpatient (REF) | payer BC, SELFPAY ==
[2024-08-23 11:26] LABS: Appearance Urine Clear; Color Urine Yellow; Glucose Urine UA Negative (Negative); Leukocyte Esterase Urine Negative (Negative); Nitrite Urine Negative (Negative); PH 5.5 (5.0-9.0); Specific Gravity - Urine >= 1.030 (1.005-1.025); Urine Blood Negative (Negative); Urine Ketones Negative (Negative); Urine Protein Negative (Neg-Trace)
[2024-08-23 11:52] LABS: Creatinine Urine 157.89 mg/dL
== END 2024-08-23 08:51 | disposition home or self-care (01) ==
LOC: HO.WFDLDS 08:50
PROVIDERS: Visit Provider Nurse Practitioner Family
DX: Z00.00 Encounter for general adult medical examination without abnormal findings (principal)
CPT/HCPCS: 81003; 82043; 82570

== ENCOUNTER 2024-12-27 09:03 | Outpatient (AMB) | payer BC, SELFPAY ==
--- NOTE | 2024-12-27 09:06 | MHC.PC.OV ---
Vital Signs 12/27/24 09:15 Height 5 ft 10 in Weight 215 lb 8 oz BMI 30.9 BP 142/72 H Blood Pressure Location Lt brachial Position Sitting Respiration 16 Pulse 77 Pulse Source Pulse Oximeter Temp 98.1 F Temp Source Oral Pulse Oximetry (%) 99 Oxygen Delivery Method Room Air Intake Visit Reasons: 3 mos DM, HTN Intake Note: patient here for 3 month follow up on DM and HTN Surgical Attendant Required: Yes Surgical Attendant Language: Prydeinig Information Interpreted: non-clinical & clinical Allergies No Known Allergies Allergy (Verified 12/27/24 09:13) Medication List - Last Reconciled 12/27/24 by Sammy Marley CNP amlodipine 2.5 mg PO DAILY 30 days atorvastatin 20 mg PO DAILY blood pressure test kit-large check bp twice a day until stable then 2 times per week cholecalciferol (vitamin D3) 25 mcg PO DAILY 3 months dulaglutide (Trulicity) 1.5 mg subcut QWEEK 4 weeks finasteride 5 mg PO DAILY 90 days glipizide ER 20 mg (2 x 10 mg) PO DAILY lisinopril-hydrochlorothiazide 20-12.5 mg 1 tab PO BID 90 days metformin 1,000 mg PO BID miscellaneous medical supply One large BP cuff/monitor Tobacco use date assessed: 12/27/24 Dental Screening Dental Screen Date: 12/27/24 Did you have a dental visit in the last 12 months?: No Did you have a dental problem in the last 6 months where you did not have access to dental care?: No Was dental information given to patient?: Yes HPI HPI Comments History of Present Illness Details 64-year-old Prydeinig-speaking male presents for hypertension and diabetes follow-up. He admits to taking his medications as prescribed without adverse reactions. Amlodipine 2.5 mg x 30 days with 1 refill was prescribed on 07/12/24; no recent refill noted. He notes that he has been making healthy dietary choices, including limiting carbs and walking routinely. He offers no complaints and denies acute symptoms at this time. He is not followed by ophthalmology and has not had an eye exam in several years. He has not followed by Podiatry and never had a foot exam. Interpretation by a professional show worker via electronic tablet. [facility] Medical History Hypocholesterolemia Elevated prostate specific antigen [PSA] Erectile dysfunction Obesity due to excess calories Body mass index (BMI) greater than 30 in adult Type 2 diabetes mellitus with hyperglycemia Allergic rhinitis Overweight Hypertension Gastroesophageal reflux Insomnia Migraine Surgical History H/O prostate biopsy H/O left knee surgery Family History Father Hypertension Mother Hypertension Sister Heart problem Social History Housing: Apartment Alcohol intake: never Patient Tobacco Use Status: Former Tobacco user e-Cigarette/Vaping Use: Never Used Second Hand Smoke Exposure: No service: No Current occupational status: employed 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 1. Little interest or pleasure in doing things: not at all 2. Feeling down, depressed, or hopeless: not at all 3. Trouble falling or staying asleep, or sleeping too much: not at all 4. Feeling tired or having little energy: not at all 5. Poor appetite or overeating: not at all 6. Feeling bad about yourself - or that you are a failure or have let yourself or your family down: not at all 7. Trouble concentrating on things, such as reading the newspaper or watching television: not at all 8. Moving or speaking so slowly that other people could have noticed. Or the opposite - being so fidgety or restless that you have been moving around a lot more than usual: not at all 9. Thoughts that you would be better off or of hurting yourself in some way: not at all Total score: 0 Depression Screening Interpretation: Positive Depression Screening Done: Yes [id number] - PHQ-9 Billing: Yes Source: Developed by Drs. Flaco Austin, Carolyn Calabrese, Adair Pyle and colleagues, with an educational binu from [employer]. Thrive Questionnaire Date Thrive assessed: 12/27/24 I am a: Patient What is your living situation today?: I have a steady place to live Within the past 12 months, did the food you bought not last and you didn't have the money to get more?: Never true Within the past 12 months, did you worry whether your food would run out before you got money to buy more?: Never true Do you have trouble paying for medicines?: No Do you have trouble getting transportation to medical appointments?: No Do you have trouble paying your heating and electricity bill?: No Do you have trouble taking care of your child, family member or friend?: No Do you have trouble with day-to-day activities such as bathing, preparing meals, shopping, managing finances, etc.?: No Are you currently unemployed and looking for a job?: No Are you interested in more education?: No Please select the resources that you would like help with: None Currently or been in a relationship where the following occur: No concerns reported THRIVE Score: 0 AUDIT C Alcohol Use Questionnaire (AUDIT-C) 1. How often do you have a drink containing alcohol?: Never Total Score: 0 FLORENTIN-7 AMB Questionnaire FLORENTIN-7 Date FLORENTIN - 7 assessed: 12/27/24 Feeling nervous, anxious, or on edge: 0 = Not at all Not being able to stop or control worryin = Not at all Worrying too much about different things: 0 = Not at all Trouble relaxin = Not at all Being so restless that it is hard to sit still: 0 = Not at all Becoming easily annoyed or irritable: 0 = Not at all Feeling afraid as if something awful might happen: 0 = Not at all Total FLORENTIN-7 score (0-4 normal; 5-9 mild; 10-14 moderate; 15-21 severe): 0 Source: Developed by Drs. Flaco Austin, Carolyn Calabrese, Adair Pyle and colleagues, with an educational binu from [employer]. Review of Systems Const Details: Const Denies chills, Denies fatigue, Denies fever(s), Denies headache(s) and Denies weakness ENT Denies dizziness and Denies headache(s) Card Denies chest pain, Denies lightheadedness, Denies dyspnea and Denies other (Palpitations) Resp Denies cough, Denies dyspnea, Denies wheezing and Denies other ( shortness of breath) GI Denies abdominal pain, Denies melena, Denies hematochezia, Denies change in bowel habits, Denies dyspepsia and Denies nausea Denies hematuria and Denies dysuria Musc Denies abnormal gait, Denies myalgias, Denies arthralgias, Denies numbness and Denies tingling Skin/Breast Denies rash, Denies unusual bruising and Denies wounds Neuro Denies abnormal gait, Denies dizziness, Denies headache(s), Denies memory loss, Denies numbness, Denies Sensory deficit (Neuro), Denies tingling and Denies weakness Psych Denies anxiety, Denies depression, Denies memory loss Endo Denies cold intolerance, Denies fatigue, Denies heat intolerance, Denies polydipsia and Denies polyuria Aller/Immun Denies wheezing Physical exam (Primary Care) Vital Signs: Last Vital Signs Temp 98.1 F 12/27/24 09:15 Pulse 77 12/27/24 09:15 Resp 16 12/27/24 09:15 BP 142/72 H 12/27/24 09:15 Pulse Ox 99 12/27/24 09:15 Oxygen Delivery Method Room Air 12/27/24 09:15 BMI result Body Mass Index 30.9 Tobacco/Smoking Status: Tobacco use Status Tobacco use date assessed 12/27/24 12/27/24 09:19 Patient Tobacco Use Status Former Tobacco user 12/27/24 09:08 e-Cigarette/Vaping Use Never Used 12/27/24 09:08 PHQ-9: PHQ-9 Score PHQ-9: Total score 0 12/27/24 14:50 Depression Screening Interpretation: Positive Thrive Assessment: Date of Thrive Assessment Date Thrive assessed 12/27/24 12/27/24 09:08 Currently or been in a relationship where the following occur: No concerns reported Const Other: General: no acute distress and well developed Nutritional Appearance: well nourished Orientation/consciousness: patient oriented x3 HENMT Head: Yes normocephalic and Yes atraumatic Eyes General: appearance normal, both eyes and all related structures Pupils: Equal, round and reactive pupils present EOM: EOMs intact bilaterally Resp Effort & Inspection: normal respiratory effort Auscultation: clear to auscultation bilaterally Cardio Rate: regular rate Rhythm: regular rhythm Heart sounds: S1 normal heart sound present, S2 normal heart sound present, no gallops, no murmurs and no rubs GI Palpation (GI): No Abdominal aortic bruit present, Soft to palpation, nontender, No hepatosplenomegaly present and No Rebound tenderness present Auscultation: normal bowel sounds General: Yes no CVA tenderness Back/Spine/Pelvis Back: no CVA tenderness Cervical Spine: cervical ROM normal and No Cervical spine tenderness Thoracic/Lumbar Spine: thoraco-lumbar ROM normal, No pain with thoraco-lumbar ROM, No thoracic spinal tenderness and No lumbar spinal tenderness Extrem General: Yes normal to inspection, No edema and No calf tenderness Skin General: warm and dry. Normal skin color. Normal skin turgor Neuro General: patient oriented x3, gait normal and no focal neuro deficit Cranial nerves: Yes Equal, round and reactive pupils present Cognition (Neuro): normal cognition Gait exam (Neuro): Normal gait present Sensory Exam: No Sensory deficit (Neuro) Psych Appearance: grossly normal Affect: normal affect Attitude: cooperative Thought process: Normal thought process present Results AMB Hemoglobin A1c AMB Hemoglobin A1c 7.4 % Last Edit by Cassandra Horne on 12/27/24 10:01 Results Reviewed Results Reviewed: Laboratory Last Values Hgb A1c (Clinic) 7.4 % (4.0-6.0) H 12/27/24 09:24 Coding Level of Care Code Est Pt Level 4 (00238) Diagnoses Primary hypertension I10 Hypertension type: primary hypertension Diabetes mellitus type II, controlled, with no complications E11.9 Vitamin D deficiency E55.9 Hypocholesterolemia E78.6 Microalbuminuria R80.9 Additional Codes PHQ-9 - 88345 - PHQ-9 Billing: Yes ([id number]) Assessment & Plan Assessment & Plan (1) Hypertension: Code(s): I10 - Essential (primary) hypertension Category: Medical Qualifiers: Hypertension type: primary hypertension Qualified Code(s): I10 - Essential (primary) hypertension Plan: Resting blood pressure is 142/72, above goal of less than 130/80. He has not taken amlodipine since it was last filled in 06/2024. Amlodipine 2.5 mg daily ordered; advised to take as prescribed. Continue to take lisinopril-hydrochlorothiazide as prescribed. Low-sodium diet encouraged. Follow-up in 1 month. Verbalized understanding and agreed with the plan. (2) Diabetes mellitus type II, controlled, with no complications: Code(s): E11.9 - Type 2 diabetes mellitus without complications Category: Medical Plan: A1c today is 7.4%, above goal of less than 7.0%. Previous A1c was 7.3%. Will increase Trulicity to 3 mg weekly; advised to take as prescribed. Continue to take glipizide and metformin as prescribed. ADA diet and routine exercise encouraged. He has never had a food exam and had an eye exam several years ago. Referred to podiatry and ophthalmology for foot exam and diabetic retinal exam respectively. Will recheck A1c in 3 months. Verbalized understanding and agreed with treatment plan. (3) Vitamin D deficiency: Code(s): E55.9 - Vitamin D deficiency, unspecified Category: Medical Plan: Continue current treatment regimen. Will check vitamin D level and make changes as needed. Verbalized understanding and agreed with treatment plan. (4) Hypocholesterolemia: Code(s): E78.6 - Lipoprotein deficiency Category: Medical Plan: Continue current treatment regimen. Will check lipid panel levels and make changes as needed. Advised to fast for 10-12 hours, may drink water, and get blood work done before his next visit. Verbalized understanding and agreed with the plan. (5) Microalbuminuria: Code(s): R80.9 - Proteinuria, unspecified Category: Medical Plan: Recent urine microalbumin/creatinine ratio is elevated, 31.0. Likely due to diabetes or dehydration. Adequate hydration encouraged. Will recheck urine microalbumin/creatinine ratio and make changes as needed. Verbalized understanding and agreed with treatment plan. Orders: Orders Lipid Panel Today E11.9 - Type 2 diabetes mellitus without complications, E78.6 - Lipoprotein deficiency Vitamin D 25-OH Total Today E55.9 - Vitamin D deficiency, unspecified AMB Hemoglobin A1c Today Z13.9 - Encounter for screening, unspecified Microalbumin, Random (w Creat) Today E11.65 - Type 2 diabetes mellitus with hyperglycemia, R80.9 - Proteinuria, unspecified Referrals Ophthalmology Referral E11.65 - Type 2 diabetes mellitus with hyperglycemia Podiatry Referral E11.65 - Type 2 diabetes mellitus with hyperglycemia Medications: New dulaglutide (Trulicity) 3 mg (0.5 mL) subcut QWEEK 4 weeks 2 mL 3RF Refilled amlodipine 2.5 mg PO DAILY 30 days 30 tabs 3RF Discontinued dulaglutide (Trulicity) Discontinued Reason: Doctor's Order 1.5 mg subcut QWEEK 4 weeks 4 mL 3RF
[2024-12-27 09:15] VITALS: BP 142/72; PULSE 77; RESP 16; TEMP 36.7; O2SAT 99; BMI 30.9
== END 2024-12-27 09:45 | disposition home or self-care (01) ==
PROVIDERS: PCP Nurse Practitioner Family; Visit Provider Nurse Practitioner Family
DX: I10 Essential (primary) hypertension (principal); E11.9 Type 2 diabetes mellitus without complications; E55.9 Vitamin D deficiency, unspecified; E78.6 Lipoprotein deficiency; R80.9 Proteinuria, unspecified; Z13.9 Encounter for screening, unspecified

== ENCOUNTER → 2024-12-27 09:03 | Outpatient (BNVA) | payer BC, SELFPAY | PROVIDERS: PCP Nurse Practitioner Family; Visit Provider Nurse Practitioner Family | DX: I10 Essential (primary) hypertension (principal); E11.9 Type 2 diabetes mellitus without complications; E55.9 Vitamin D deficiency, unspecified; E78.6 Lipoprotein deficiency; R80.9 Proteinuria, unspecified; Z79.899 Other long term (current) drug therapy | CPT/HCPCS: 83036; 96127 ==

== ENCOUNTER 2025-01-11 08:13 | Outpatient (REF) | payer BC, SELFPAY ==
--- OUTSIDE RECORDS SUMMARY | 2025-01-11 08:36 | XMS_ITS | Clinical Summary ---
Author Organization [facility] Address [address] [place] [address] Care Team Providers Care Gizzard Skin Remover Name Role Phone Unavailable Primary Care Provider Unavailabl e Source Comments PLEASE NOTE, if this patient is a minor, it may be UNLAWFUL to discuss sensitive information that is contained in these records (such as FAMILY PLANNING, MENTAL HEALTH or SUBSTANCE ABUSE) with the minor patient's parent or other person without the patient's specific authorization.[facility] Social History Tobacco Use Types Packs/Day Years Used Date Smoking Tobacco: Never Assessed Social Connections Answer Date Recorded Social Connections and Isolation 0 04/03/2021 Financial Resource Strain Answer Date R ecorded Financial Resource Strain 0 2020 Stress Answer Date Recorded Stress 0 04/03/2021 Physical Activity Answer Date Recorded Physical Activity 0 04/03/2021 Food Insecurity Answer Date Recorded Food 0 04/03/2021 Transportation Needs Answer Date Record ed Transportation 0 04/03/2021 Housing Stability Answer Date Recorded Housing 0 04/03/2021 Safety and Environment Answer Date Suhail rded Safety 0 04/03/2021 Utilities Answer Date Recorded Utilities 0 04/03/2021 Employment Answer Date Recorded Employment 0 04/03/2021 Sex and Gender Information Value Date Recorded Sex Assigned at Not on file Legal Sex Male 7:52 AM PST Gender Identity Not on file Sexual Orientation Not on file Plan of Treatment Not on file Insurance [employer]
[2025-01-11 09:47] LABS: Microalbum/Creatinine Ratio Ur 19.4 ug/mg cr (<30)
[2025-01-11 09:52] LABS: Cholesterol 97 mg/dL (<200); HDL Cholesterol 43 mg/dL (>40); LDL Cholesterol Calculated 46 mg/dL (<100); Triglycerides 41 mg/dL (<150)
[2025-01-11 09:54] LABS: Prostate Specific Antigen 0.97 ng/mL (<0.05-4.0)
[2025-01-11 09:56] LABS: Vitamin D 25-OH Total 48.5 ng/mL (>30)
== END 2025-01-11 08:14 | disposition home or self-care (01) ==
LOC: HO.LAB 08:13
PROVIDERS: Absent Provider Nurse Practitioner Family; PCP Nurse Practitioner Family; Visit Provider Urology
DX: N32.0 Bladder-neck obstruction (principal); E11.9 Type 2 diabetes mellitus without complications; E78.6 Lipoprotein deficiency; E55.9 Vitamin D deficiency, unspecified; E11.65 Type 2 diabetes mellitus with hyperglycemia; R80.9 Proteinuria, unspecified; Z12.5 Encounter for screening for malignant neoplasm of prostate
CPT/HCPCS: 36415; 80061; 82043; 82306; 82570; 84153

== ENCOUNTER 2025-01-17 09:40 | Outpatient (AMB) | payer BC, SELFPAY ==
--- NOTE | 2025-01-17 09:46 | A.OFFVIS_ITS ---
Vital Signs 01/17/25 09:48 Height 5 ft 10 in Weight 212 lb 1.355 oz BMI 30.4 BP 146/70 H Blood Pressure Location Rt brachial Position Sitting Pulse 72 Pulse Source Pulse Oximeter Pulse Oximetry (%) 100 Oxygen Delivery Method Room Air Intake Visit Reasons: Colonoscopy screening Intake Note: NEW PATIENT for 2nd lifetime recall. Last [place] [facility]. Chief Complaint; Pt denies any GI concerns at this time. Mold Tooler Required: Yes Mold Tooler Services: Mold Tooler Present Mold Tooler Name: ADAM Corcoran [id number] Information Interpreted: clinical only Accompanied by: Self / Same As Patient Allergies No Known Allergies Allergy (Verified 01/17/25 09:47) HPI HPI Colonoscopy screening: Details: 64 year old? male here today for pre colonoscopy screening.? Patient was sent to us by his PCP.? ?Last colonoscopy was in July of [address] Bingham. Normal colonoscopy. Patient denies any gastrointestinal symptoms in the past or at present.? Denies any personal or family history of gastrointestinal disease, colon polyps, or CRC.? Denies history of difficulty with sedation or anesthesia in the past.? Negative for history of sleep apnea.? Denies any history of cardiac, renal, pulmonary, or hepatic disease.?? No history of infectious? diseases like hepatitis A, B, C, HIV or tuberculosis.? Patient is not on any anticoagulation [facility] Medical History Hypocholesterolemia Elevated prostate specific antigen [PSA] Erectile dysfunction Obesity due to excess calories Body mass index (BMI) greater than 30 in adult Type 2 diabetes mellitus with hyperglycemia Allergic rhinitis Overweight Hypertension Gastroesophageal reflux Insomnia Migraine Surgical History H/O prostate biopsy H/O left knee surgery Family History Father Hypertension Mother Hypertension Sister Heart problem Social History Housing: Apartment Alcohol intake: never Patient Tobacco Use Status: Former Tobacco user e-Cigarette/Vaping Use: Never Used Second Hand Smoke Exposure: No service: No Current occupational status: employed 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 Current occupational exposures/hazards: No Cognitive needs: No Hearing needs: No Vision needs: No Review of Systems Const Denies weight gain and Denies weight loss ENT Reports no additional complaints, Denies dysphagia and Denies odynophagia Card Reports no additional complaints Resp Reports no additional complaints GI Denies abdominal pain, Denies belching, Denies melena, Denies bloating, Denies change in bowel habits, Denies dysphagia, Denies excessive flatus, Denies dyspepsia, Denies heartburn, Denies diarrhea, Denies loose stools, Denies nausea, Denies odynophagia and Denies vomiting Reports no additional complaints Musc Reports no additional complaints Neuro Reports no additional complaints Psych Reports no additional complaints Endo Reports no additional complaints Physical Exam Const General: healthy appearing and no acute distress Nutritional Appearance: obese Orientation/consciousness: patient oriented x3 Resp Effort & Inspection: normal respiratory effort, able to speak in complete sentences, no tracheal deviation and symmetric chest movement Auscultation: clear to auscultation bilaterally Cardio Rate: regular rate GI Inspection: Yes normal to inspection, No distended and Yes obesity Palpation (GI): Soft to palpation, not firm, nontender and No hepatosplenomegaly present Auscultation: normal bowel sounds General: Yes no CVA tenderness Back/Spine/Pelvis Back: no CVA tenderness Skin General skin exam: elasticity normal, turgor normal and dry skin Neuro General: patient oriented x3 Psych Appearance: grossly normal Mental Status: mental status grossly normal Assessment & Plan Assessment & Plan (1) Colon cancer screening: Code(s): Z12.11 - Encounter for screening for malignant neoplasm of colon Category: Medical Plan Patient denies any GI, cardiac or respiratory symptoms.? Denies any issues with anesthesia in the past.? Denies any history of sleep apnea.? No history infectious diseases in the past or present.? Not on any anticoagulation therapy.? No family or personal history of colon cancer or polyps.? Patient den ies melena, hematochezia, unintentional weight loss or ribbon like stools.? Patient is on Trulicity. Discussed at length the pre-procedure,? prep, diet & medications as well as what to expect prior, during and after the procedure.?? Stressed the importance of good bowel prep.? Recommended the use of Vaseline or Calmoseptine OTC & baby wipes with bowel movements to promote comfort.? ?Patient verbalizes understanding and agrees to plan of care.? He was given the opportunity to ask questions and all questions answered.? We will see him after the procedure.? Medications: New bisacodyl (Dulcolax (bisacodyl)) take 4 tabs at noon the day before your colonoscopy 20 mg (4 x 5 mg) PO ONCE 1 day 4 tabs 0RF Z12.11 - Encounter for screening for malignant neoplasm of colon polyethylene glycol 3350 (Miralax) As directed by gastroenterology department at [facility] 238 grams PO ONCE 238 grams 0RF Z12.11 - Encounter for screening for malignant neoplasm of colon Coding Level of Care Code New Pt Level 3 (52495) Diagnoses Colon cancer screening Z12.11 Time Spent (min) 40 Comment 30 minutes spent with patient and additional 10 minutes spent reviewing his records
[2025-01-17 09:48] VITALS: BP 146/70; PULSE 72; O2SAT 100; BMI 30.4
--- OUTSIDE RECORDS SUMMARY | 2025-01-17 10:45 | XMS_ITS | Clinical Summary ---
Author Organization [facility] Address [address] [place] [address] Care Team Providers Care Manufacturers Representative Name Role Phone Unavailable Primary Care Provider [...]
--- OUTSIDE RECORDS SUMMARY | 2025-01-17 10:45 | XMS_ITS | Clinical Summary ---
Author Organization 175 [facility] Address [address] [place] [address] Phone Care Team Providers Care Recreation Teacher Name Role Phone Sammy Marley REPORTER ANCHOR Primary Care Provider [phone] Allergies No known active allergies Immunizations Name Administration Dates Next Due Tdap Tetanus diptheria acell ular pertussis (Boostrix; Adacel) 7yo and older 07/04/2008 Surgical History Surgery Date Site/Laterality Comments KNEE ARTHROSCOPY PROCEDURE: [place] ARTHROSCOPY KNEE DIAGNOSTIC W/WO SYNOVIAL BX SPX; COMMENT: right knee Family History Relation Name Status Comments Brother 1 Alive Brother 2 Alive Father Alive HTN Mother Alive Sister 1 Alive Heart problems? Sister 2 Alive Sister 3 Alive Social History Tobacco Use Types Packs/Day Years Used Date Smoking Tobacco: Every Day Alcohol Use Standard Drinks/Week Comments No 0 (1 standard drink = 0.6 oz pur e alcohol) Sex and Gender Information Value Date Recorded Sex Assigned at Not on file Legal Sex Male 9:10 PM EST Gender Identity Not on file Sexual Orientation Not on file Obstetrics History Plan of Treatment Upcoming Encounters Date Type Department Care Team ([facility] Contact Info) Description 03/14/2025 9:00 AM EDT Consult Orthopedic Surgery - [place] [address] [phone] Ruben Clifford DPM [address] [address] Health Maintenance Due Date Last Done Comments Diabetes: Annual Foot Exam 1972 Diabetes: Annual Retina Eye Exam 1972 Pneumococcal Vaccine: 50+ Ye ars (1 of 2 - PCV) 1981 Pneumococcal Vaccine: Pediat rics (0 to 5 Years) and At-Risk Patients (6 to 64 Years) (1 of 2 - PCV) 1981 Diabetes: Annual GFR (Glomer ular Filtration Rate) 07/05/2009 07/05/2008 Zoster Vaccines (1 of 2) 2012 DTaP,Tdap,and Td Vaccines (2 - Td or Tdap) 07/04/2018 07/04/2008 Cholesterol Screening (Lipid Panel) 12/12/2023 07/05/2008 Colorectal Cancer Screening: Colonoscopy 12/12/2023 Depression Screening 12/12/2023 HIV Screening 12/12/2023 Hepatitis C Screening 12/12/2023 Social Influencers of Health Screening 12/12/2023 COVID-19 Vaccine ( - 2023-2 5 season) 2024 Influenza Vaccine (#1) 2024 Diabetes: Annual Urine Albumin-Creatinine Ratio (uACR) 01/14/2025 Diabetes: Blood Sugar Contro l Test (HGBA1C) 01/14/2025 RSV Immunization Patients 60 + Years Old (1 - 1-dose 75+ series) 2037 HIB Vaccines Aged Out No longer eligi ble based on patient's age to complete this topic HPV Vaccines Aged Out No longer eligi ble based on patient's age to complete this topic Hepatitis A Vaccines Aged Out No long er eligible based on patient's age to complete this topic Hepatitis B Vaccines Aged Out No long er eligible based on patient's age to complete this topic IPV Vaccines Aged Out No longer eligi ble based on patient's age to complete this topic MMR Vaccines Aged Out No longer eligi ble based on patient's age to complete this topic Meningococcal ACWY Vaccine Aged Out N o longer eligible based on patient's age to complete this topic Meningococcal B Vacine Aged Out No lo nger eligible based on patient's age to complete this topic RSV Immunization Patients Un adams 20 months Aged Out No longer eligible b ased on patient's age to complete this topic Varicella Vaccines Aged Out No longer eligible based on patient's age to complete this topic Procedures Procedure Name Priority Date/Time Associated Diagnosis Comments ANNUAL BMP BLOOD TEST Routine 07/05/2008 LIPID PANEL Routine 07/05/2008 from Last 3 Months or Most Recently Relevant to Health Maintenance Results * Annual BMP Blood Test (07/05/2008) Annual BMP Blood Test abstracted Historical Provider HEALTH MAINTENANCE Final Result * Lipid panel (07/05/2008) LDL/HDL Ratio 4 0 - 4 Triglycerides 84 0 - 150 mg/dL Cholesterol 149 0 - 200 mg/dL HDL 42 >=40 mg/dL LDL Cholesterol 91 0 - 100 mg/dL Blood Venous blood specimen / Unknown Historical Provider LAB BLOOD ORDERABLES Dahlia l Result from Last 3 Months or Most Recently Relevant to Health Maintenance [place] [address] [address] [place] [address] Care Teams Recreation Teacher Relationship Specialty Start Date End Date Sammy Marley FNP [address] [place] [address] PCP - General Family Medicine 01/14/25
== END 2025-01-17 11:00 | disposition home or self-care (01) ==
PROVIDERS: PCP Nurse Practitioner Family; Visit Provider Nurse Practitioner Family
DX: Z01.818 Encounter for other preprocedural examination (principal); Z12.11 Encounter for screening for malignant neoplasm of colon
CPT/HCPCS: S0285

== ENCOUNTER 2025-01-24 08:38 | Outpatient (AMB) | payer BC, SELFPAY ==
--- NOTE | 2025-01-24 08:39 | A.OFFVIS_ITS ---
Intake Visit Reasons: Followup/PSA Intake Note: Patient presents today via telehealth follow-up/PSA Meds- Finasteride, Allergies to Antibiotic- No Known Allergies Blood Thinner- None Sales Representative Graphic Art Required: Yes Sales Representative Graphic Art Services: Sales Representative Graphic Art Present Sales Representative Graphic Art Name: Mahesh Dodson Information Interpreted: non-clinical & clinical Allergies No Known Allergies Allergy (Verified 02/14/25 14:18) Medication List - Last Reconciled 01/24/25 by Sulema Shukla MD amlodipine 2.5 mg PO DAILY 30 days atorvastatin 20 mg PO DAILY bisacodyl (Dulcolax (bisacodyl)) 20 mg (4 x 5 mg) PO ONCE 1 day blood pressure test kit-large check bp twice a day until stable then 2 times per week cholecalciferol (vitamin D3) 25 mcg PO DAILY 3 months dulaglutide (Trulicity) 3 mg (0.5 mL) subcut QWEEK 4 weeks finasteride 5 mg PO DAILY 90 days glipizide ER 20 mg (2 x 10 mg) PO DAILY lisinopril-hydrochlorothiazide 20-12.5 mg 1 tab PO BID 90 days metformin 1,000 mg PO BID miscellaneous medical supply One large BP cuff/monitor polyethylene glycol 3350 (Miralax) 238 grams PO ONCE HPI Comments Details: 01/24/25-- History of Present Illness The patient is a 64-year-old male presenting with a follow-up for PSA results. His recent laboratory work conducted on 01/11/25 revealed a PSA level of 0.97, which is within the normal range. The patient has a known history of Benign Pro static Hyperplasia and has been on finasteride, administered every Friday, Friday, and Friday following a revision from a daily intake. This adjustment was made due to the sufficient supply of medication accumulated from prior prescriptions. The patient reports no urinary complaints such as hematuria or dysuria, and his urinary symptoms appear well-managed. Urinary Symptoms Review - Denies pain or burning with urination. - Denies blood in the urine. - Currently taking finasteride on Friday, Friday, and Friday. Results - Labs: PSA - 01/11/25--0.97 ng/mL 01/15/24--Migel is a pleasant male. He is seen for the following urologic conditions - erectile dysfunction - bladder outlet obstruction with elevated PSA Telemedicine Evaluation 15 min Consultation [employer] Video attempted Jordanian translation provided by qualified medical assistant PSA remains stable on reduced finasteride dosage - Friday, Friday, Friday Stable urinary parameters with minimal nocturia and effective bladder emptying 12 month follow-up Elevated PSA Prior biopsy for PSA proximally 4 - negative PSA 08/07 2.4, 12/08 5.3, 05/08 1.2, 01/09 1.1, 07/09 1.5, 12/10 1.2 Did notice improved urinary parameters with less nocturia on finasteride Current therapy finasteride Erectile dysfunction secondary to diabetes Progressive Recent diagnosis of uncontrolled diabetes HBA1c 7.8% Poor response to on demand sildenafil Trial of high-dose daily tadalafil 10/07 poor response PFSH Medical History (Updated 01/24/25 @ 15:10 by Sulema Shukla MD) Elevated prostate specific antigen [PSA] Erectile dysfunction Obesity due to excess calories Body mass index (BMI) greater than 30 in adult Type 2 diabetes mellitus with hyperglycemia Allergic rhinitis Overweight Hypertension Gastroesophageal reflux Hypocholesterolemia Insomnia Migraine Surgical History (Updated 02/14/25 @ 14:17 by Pamela Nj RN) Hx of colonoscopy H/O prostate biopsy H/O left knee surgery Family History Father Hypertension Mother Hypertension Sister Heart problem Social History Household Members Other:: sister Housing: Apartment Are you a primary childcare administrator to a significant other at home: No Do you presently have visiting nurse or other home services: No Alcohol intake: never Patient Tobacco Use Status: Former Tobacco user e-Cigarette/Vaping Use: Never Used Second Hand Smoke Exposure: No Have you been hit, kicked, punched, or otherwise hurt by someone within the past year? 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 Current occupational exposures/hazards: No Cognitive needs: No Hearing needs: No Vision needs: No Review of Systems Const All systems reviewed & are unremarkable except as noted in HPI and below Reports no additional complaints Eyes Reports no additional complaints ENT Reports no additional complaints Card Reports no additional complaints Resp Reports no additional complaints GI Reports no additional complaints Reports as per HPI Musc Reports no additional complaints Skin/Breast Reports system reviewed and no additional complaints, except as documented Neuro Reports no additional complaints Psych Reports no additional complaints Endo Reports no additional complaints Rodney/Lymph Reports no additional complaints Aller/Immun Reports no additional complaints Telehealth Telehealth Telehealth Platform: Telephone Location of provider rendering services: practice address Location of patient: address on file Patient Identification confirmed using: Name, : Yes Telehealth method: voice only Patient verbally consented to treatment: Yes Patient verbally consented to billing insurance company: Yes Patient informed of any privacy concerns related to visit: Yes Minutes spent on Phone/Video with Pt.: 13 Assessment & Plan Assessment & Plan (1) Elevated PSA: Code(s): R97.20 - Elevated prostate specific antigen [PSA] Category: Medical (2) Weak urinary stream: Code(s): R39.12 - Poor urinary stream Category: Medical (3) BPH with elevated PSA: Code(s): N40.0 - Benign prostatic hyperplasia without lower urinary tract symptoms; R97.20 - Elevated prostate specific antigen [PSA] Category: Medical Plan Plan Continue the administration of finasteride three times a week. The patient demonstrates good management of urinary symptoms, and a follow-up telehealth appointment has been suggested for the next year.: Discussion Notes During the telehealth visit, I explained that the patient's PSA levels are currently within normal ranges, which is reassuring. We discussed continuing the current dosing schedule of finasteride, which the patient confirmed he is adhering to with no difficulties. There was consideration for the sufficiency of medication supplies given the recent reduction in frequency of dosing. I emphasized the importance of maintaining this regimen and advised scheduling a follow-up telehealth appointment for the upcoming year to ensure ongoing monitoring and management of his condition. The patient understood and agreed with the treatment plan and follow-up arrangements. Patient Instructions: Patient Instructions - Continue taking finasteride on Friday, Friday, and Friday. - Monitor for any urinary symptoms such as pain, burning, or blood in the urine. - Contact the clinic if there are any significant changes in symptoms. - Proceed with scheduling a telehealth follow-up for next year. The patient had an opportunity to ask questions regarding treatment plan. The patient expressed understanding and agreement with the above treatment plan. The patient is aware they should contact our office by phone for worsening of th eir current condition or the appearance of new symptoms. Compliance is encouraged with any medications and followup testing that is ordered. It is a privilege to be allowed the opportunity to participate in the urologic care of your patient. If you have any questions or concerns regarding treatment for the above conditions please do not hesitate to contact me. The office telephone contact is [phone]. This note is constructed in part using voice recognition software. While every effort has been made to ensure accuracy sales expert errors may have been included. Yours sincerely, Sulema Shukla MD Scribe Plan - Not visible on output: Patient was informed and verbally consented to the use of an ambient scribe for clinic note documentation during this visit. Coding Level of Care Code Tele Est Pt Level 3 (58304) Diagnoses Elevated PSA R97.20 Weak urinary stream R39.12 BPH with elevated PSA N40.0; R97.20
--- OUTSIDE RECORDS SUMMARY | 2025-01-24 08:57 | XMS_ITS | Clinical Summary ---
Author Organization [facility] Address [address] [place] [address] Care Team Providers Care Heating Fixture Tender Name Role Phone Unavailable Primary Care Provider [...]
== END 2025-01-24 15:07 | disposition home or self-care (01) ==
LOC: HO.HUSH 08:38
PROVIDERS: PCP Nurse Practitioner Family; Visit Provider Urology
DX: R97.20 Elevated prostate specific antigen [PSA] (principal); R39.12 Poor urinary stream; N40.0 Benign prostatic hyperplasia without lower urinary tract symptoms
CPT/HCPCS: 99213

== ENCOUNTER → 2025-01-24 08:38 | Outpatient (BNVA) | payer BC, SELFPAY | PROVIDERS: PCP Nurse Practitioner Family; Visit Provider Urology ==

== ENCOUNTER 2025-01-24 10:36 | Outpatient (AMB) | payer BC, SELFPAY ==
--- NOTE | 2025-01-24 10:41 | A.OFFPC_ITS ---
Vital Signs 01/24/25 10:48 01/24/25 11:02 Height 5 ft 10 in Weight 209 lb BMI 30.0 BP 138/65 126/76 Blood Pressure Location Rt brachial Rt brachial Position Sitting Sitting Respiration 16 Pulse 78 Pulse Source Pulse Oximeter Temp 97.8 F Temp Source Oral Pulse Oximetry (%) 98 Oxygen Delivery Method Room Air Intake Visit Reasons: 1 mos HTN Intake Note: patient here for follow up on HTN Charge Coordinator Required: No Allergies No Known Allergies Allergy (Verified 01/24/25 10:56) Medication List - Last Reconciled 01/24/25 by Sammy Marley CNP amlodipine 2.5 mg PO DAILY 30 days atorvastatin 20 mg PO DAILY bisacodyl (Dulcolax (bisacodyl)) 20 mg (4 x 5 mg) PO ONCE 1 day blood pressure test kit-large check bp twice a day until stable then 2 times per week cholecalciferol (vitamin D3) 25 mcg PO DAILY 3 months dulaglutide (Trulicity) 3 mg (0.5 mL) subcut QWEEK 4 weeks finasteride 5 mg PO DAILY 90 days glipizide ER 20 mg (2 x 10 mg) PO DAILY lisinopril-hydrochlorothiazide 20-12.5 mg 1 tab PO BID 90 days metformin 1,000 mg PO BID miscellaneous medical supply One large BP cuff/monitor polyethylene glycol 3350 (Miralax) 238 grams PO ONCE Tobacco use date assessed: 01/24/25 Dental Screening Dental Screen Date: 01/24/25 Did you have a dental visit in the last 12 months?: No Did you have a dental problem in the last 6 months where you did not have access to dental care?: No Was dental information given to patient?: Patient declined HPI HPI Comments History of Present Illness Details 64-year-old male presents for hypertensi on follow-up. He admits to taking his medications as prescribed without adverse reactions. He has been making healthy dietary choices, including low-sodium diet. He offers no complaints and denies acute symptoms at this time. Interpretation by a professional translator and interpreter via electronic tablet. [facility] Medical History Hypocholesterolemia Elevated prostate specific antigen [PSA] Erectile dysfunction Obesity due to excess calories Body mass index (BMI) greater than 30 in adult Type 2 diabetes mellitus with hyperglycemia Allergic rhinitis Overweight Hypertension Gastroesophageal reflux Insomnia Migraine Surgical History H/O prostate biopsy H/O left knee surgery Family History Father Hypertension Mother Hypertension Sister Heart problem Social History Housing: Apartment Alcohol intake: never Patient Tobacco Use Status: Former Tobacco user e-Cigarette/Vaping Use: Never Used Second Hand Smoke Exposure: No service: No Current occupational status: employed 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 Current occupational exposures/hazards: No Cognitive needs: No Hearing needs: No Vision needs: No Questionnaire Thrive Questionnaire Date Thrive assessed: 12/27/24 I am a: Patient What is your living situation today?: I have a steady place to live Within the past 12 months, did the food you bought not last and you didn't have the money to get more?: Never true Within the past 12 months, did you worry whether your food would run out before you got money to buy more?: Never true Do you have trouble paying for medicines?: No Do you have trouble getting transportation to medical appointments?: No Do you have trouble paying your heating and electricity bill?: No Do you have trouble taking care of your child, family member or friend?: No Do you have trouble with day-to-day activities such as bathing, preparing meals, shopping, managing finances, etc.?: No Are you currently unemployed and looking for a job?: No Are you interested in more education?: No Please select the resources that you would like help with: None Currently or been in a relationship where the following occur: No concerns reported THRIVE Score: 0 FLORENTIN-7 AMB Questionnaire FLORENTIN-7 Date FLORENTIN - 7 assessed: 12/27/24 Source: Developed by Drs. Flaco Austin, Carolyn Calabrese, Adair Pyle and colleagues, with an educational binu from [email or web address]. Review of Systems Const Details: Const Denies chills, Denies fatigue, Denies fever(s), Denies headache(s) and Denies weakness ENT Denies dizziness and Denies headache(s) Card Denies chest pain, Denies lightheadedness, Denies dyspnea and Denies other (Palpitations) Resp Denies cough, Denies dyspnea, Denies wheezing and Denies other ( shortness of breath) GI Denies abdominal pain, Denies melena, Denies hematochezia, Denies change in bowel habits, Denies dyspepsia and Denies nausea Denies hematuria and Denies dysuria Musc Denies abnormal gait, Denies myalgias, Denies arthralgias, Denies numbness and Denies tingling Skin/Breast Denies rash, Denies unusual bruising and Denies wounds Neuro Denies abnormal gait, Denies dizziness, Denies headache(s), Denies memory loss, Denies numbness, Denies Sensory deficit (Neuro), Denies tingling and Denies weakness Psych Denies anxiety, Denies depression, Denies memory loss Endo Denies cold intolerance, Denies fatigue, Denies heat intolerance, Denies polydipsia and Denies polyuria Aller/Immun Denies wheezing Physical exam (Primary Care) Vital Signs: Last Vital Signs Temp 97.8 F 01/24/25 10:48 Pulse 78 01/24/25 10:48 Resp 16 01/24/25 10:48 BP 138/65 01/24/25 10:48 Pulse Ox 98 01/24/25 10:48 Oxygen Delivery Method Room Air 01/24/25 10:48 BMI result Body Mass Index 30.0 Tobacco/Smoking Status: Tobacco use Status Tobacco use date assessed 01/24/25 01/24/25 10:50 Patient Tobacco Use Status Former Tobacco user 01/24/25 10:43 e-Cigarette/Vaping Use Never Used 01/24/25 10:43 Thrive Assessment: Date of Thrive Assessment Date Thrive assessed 12/27/24 01/24/25 10:43 Currently or been in a relationship where the following occur: No concerns reported Const Other: General: no acute distress and well developed Nutritional Appearance: well nourished Orientation/consciousness: patient oriented x3 HENMT Head: Yes normocephalic and Yes atraumatic Eyes General: appearance normal, both eyes and all related structures Pupils: Equal, round and reactive pupils present EOM: EOMs intact bilaterally Resp Effort & Inspection: normal respiratory effort Auscultation: clear to auscultation bilaterally Cardio Rate: regular rate Rhythm: regular rhythm Heart sounds: S1 normal heart sound present, S2 normal heart sound present, no gallops, no murmurs and no rubs GI Palpation (GI): No Abdominal aortic bruit present, Soft to palpation, nontender, No hepatosplenomegaly present and No Rebound tenderness present Auscultation: normal bowel sounds General: Yes no CVA tenderness Back/Spine/Pelvis Back: no CVA tenderness Cervical Spine: cervical ROM normal and No Cervical spine tenderness Thoracic/Lumbar Spine: thoraco-lumbar ROM normal, No pain with thoraco-lumbar ROM, No thoracic spinal tenderness and No lumbar spinal tenderness Extrem General: Yes normal to inspection, No edema and No calf tenderness Skin General: warm and dry. Normal skin color. Normal skin turgor Neuro General: patient oriented x3, gait normal and no focal neuro deficit Cranial nerves: Yes Equal, round and reactive pupils present Cognition (Neuro): normal cognition Gait exam (Neuro): Normal gait present Sensory Exam: No Sensory deficit (Neuro) Psych Appearance: grossly normal Affect: normal affect Attitude: cooperative Thought process: Normal thought process present Coding Level of Care Code Est Pt Level 3 (16569) Diagnoses Primary hypertension I10 Hypertension type: primary hypertension Hypocholesterolemia E78.6 Vitamin D deficiency E55.9 Assessment & Plan Assessment & Plan (1) Hypertension: Code(s): I10 - Essential (primary) hypertension Category: Medical Qualifiers: Hypertension type: primary hypertension Qualified Code(s): I10 - Essential (primary) hypertension Plan: Resting blood pressure is 126/76, within goal of less than 130/80. Continue current treatment regimen. Follow-up in 3 months for hypertension and diabetes or sooner with symptoms or concerns. Verbalized understanding and agreed with treatment plan. (2) Hypocholesterolemia: Code(s): E78.6 - Lipoprotein deficiency Category: Medical Plan: Recent lipid panel level is normal. Continue current treatment regimen. Verbalized understanding and agreed with the plan. (3) Vitamin D deficiency: Code(s): E55.9 - Vitamin D deficiency, unspecified Category: Medical Plan: Recent vitamin-D level is normal. Continue current treatment regimen. Verbalized understanding and agreed with the plan
[2025-01-24 10:48] VITALS: BP 138/65; PULSE 78; RESP 16; TEMP 36.6; O2SAT 98
[2025-01-24 11:02] VITALS: BP 126/76
--- OUTSIDE RECORDS SUMMARY | 2025-01-24 11:55 | XMS_ITS | Clinical Summary ---
Author Organization [facility] Address [address] [place] [address] Care Team Providers Care Tank Wagon Driver Name Role Phone Unavailable Primary Care Provider [...]
--- OUTSIDE RECORDS SUMMARY | 2025-01-24 11:56 | XMS_ITS | Clinical Summary ---
Author Organization 175 [facility] Address [address] [place] [address] Phone Care Team Providers Care Global Process Owner Name Role Phone Sammy Marley POSTAL SUPPORT EMPLOYEE Primary Care Provider [phone] Allergies No known active allergies Immunizations Name Administration Dates Next Due Tdap Tetanus diptheria acell ular pertussis (Boostrix; Adacel) 7yo and older 07/04/2008 Surgical History Surgery Date Site/Laterality Comments KNEE ARTHROSCOPY PROCEDURE: [place] ARTHROSCOPY KNEE DIAGNOSTIC W/WO SYNOVIAL BX SPX; [...] Upcoming Encounters Date Type Department Care Team ([facility] Contact Info) Description 03/14/2025 9:00 AM EDT Consult Orthopedic Surgery - [place] [address] [phone] Ruben Clifford DPM [address] [address] Health Maintenance Due Date Last Done Comments [...] Most Recently Relevant to Health Maintenance [place] [address] [place] [address] Care Teams Global Process Owner Relationship Specialty Start Date End Date Sammy Marley FNP [address] [place] [address] PCP - General Family Medicine 01/14/25
== END 2025-01-24 11:08 | disposition home or self-care (01) ==
PROVIDERS: PCP Nurse Practitioner Family; Visit Provider Nurse Practitioner Family
DX: I10 Essential (primary) hypertension (principal); E78.6 Lipoprotein deficiency; E55.9 Vitamin D deficiency, unspecified

== ENCOUNTER 2025-02-14 13:25 | Day surgery (SDC) | payer BC, SELFPAY ==
[2025-02-14 13:50] VITALS: BMI 29.4
[2025-02-14] MEDS: Lactated Ringers 1,000 ML 80 ML IVCONT (14:08)
--- NOTE | 2025-02-14 14:14 | MHC.SHP ---
Pre-Procedural Eval Section A - 24 Hr Update-Section A only Date of Service: 02/14/25 The patient is an INPATIENT: No The patient has been examined within 24 hours of the surgical procedure. The History & Physical has been completed within 30 days and I have reviewed it.: No Section B - Complete if H&P > 30 days Chief Complaint: Colon cancer screening Relevant Family History (Specify if Yes): No Relevant Social History: Tobacco Use (Former smoker) Present Medications: see Short Stay Collaborative assessment Medical History: Significant History (Hypocholesterolemia Elevated prostate specific antigen [PSA] Erectile dysfunction Obesity due to excess calories Body mass index (BMI) greater than 30 in adult Type 2 diabetes mellitus with hyperglycemia Allergic rhinitis Overweight Hypertension Gastroesophageal reflux Insomnia Migraine) History of Previous Operations: Relevant previous surgery/procedure and date(s) (H/O prostate biopsy H/O left knee surgery) Allergies: Allergies Allergy/AdvReac Type Severity Reaction Status Date / Time No Known Allergies Allergy Verified 01/24/25 10:56 Review of Systems Sugical H&P ROS: Negative: Constitution, Cardiovascular, Respiratory and Gastrointestinal Exam Surgical H&P Exam: Normal: Heart, Normal: Lungs, Normal: Extremities and Normal: Abdomen Plan Diagnosis/Plan: Unchanged I have reviewed the history and physical and performed a pertinent physical examination on my patient. No changes have occurred unless specified. Time Spent With Patient Time: Total time managing care of this patient today ____ minutes.
[2025-02-14 14:15] VITALS: BP 130/72; PULSE 80; RESP 18; TEMP 36.7; O2SAT 98
[2025-02-14 14:16] LABS: Glucose, Whole Blood 136 mg/dL (60-115)
--- NOTE | 2025-02-14 16:01 | P.CONAN_ITS ---
HPI - Anesthesia Eval Consult details Narrative: for colonoscopy [facility] Active Problems Active Problems: All Active Problems BPH with elevated PSA (Acute) Microalbuminuria (Acute) Colon cancer screening (Acute) Laboratory tests ordered as part of a complete physical exam (CPE) (Acute) Stress due to illness of family member (Acute) Vaccine counseling (Acute) Normal physical examination, routine (Acute) Weak urinary stream (Acute) Diabetes mellitus type II, controlled, with no complications (Acute) Elevated liver enzymes (Acute) Anemia (Acute) Nocturia more than twice per night (Acute) Obesity (BMI 30.0-34.9) (Acute) BMI 31.0-31.9,adult (Acute) Elevated PSA (Acute) Cellulitis of right leg (Acute) Erectile dysfunction associated with type 2 diabetes mellitus (Acute) Bladder outlet obstruction (Acute) Diabetes type 2, uncontrolled (Acute) Well adult exam (Acute) Vitamin D deficiency (Acute) Hypocholesterolemia (Acute) Type 2 diabetes mellitus with hyperglycemia (Acute) Hypertension (Acute) Elevated prostate specific antigen [PSA] (Acute) Past Medical History Medical History (Updated 01/24/25 @ 15:10 by Sulema Shukla MD) Elevated prostate specific antigen [PSA] Erectile dysfunction Obesity due to excess calories Body mass index (BMI) greater than 30 in adult Type 2 diabetes mellitus with hyperglycemia Allergic rhinitis Overweight Hypertension Gastroesophageal reflux Hypocholesterolemia Insomnia Migraine Family History Family History Father Hypertension Mother Hypertension Sister Heart problem Family history of problems with anesthesia: No Surgical History Surgical History (Updated 02/14/25 @ 14:17 by Pamela Nj RN) Hx of colonoscopy H/O prostate biopsy H/O left knee surgery History of Problems with Anesthesia: No Social History Social History Household Members Other:: sister Housing: Apartment Are you a primary reproductive healthcare assistant to a significant other at home: No Do you presently have visiting nurse or other home services: No Alcohol intake: never Patient Tobacco Use Status: Former Tobacco user e-Cigarette/Vaping Use: Never Used Second Hand Smoke Exposure: No Have you been hit, kicked, punched, or otherwise hurt by someone within the past year? 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 Current occupational exposures/hazards: No Cognitive needs: No Hearing needs: No Vision needs: No Meds Allergies Allergy/AdvReac Type Severity Reaction Status Date / Time No Known Allergies Allergy Verified 02/14/25 14:18 Active Medications: Current Medications Lactated Ringer's (Lr) 1,000 mls @ 80 mls/hr IVCONT .[id number] NESTOR Last Admin: 02/14/25 14:08 Dose: 80 mls/hr Exam Height,Weight and Vital Signs: Height 5 ft 10 in Weight 94.801 kg Last Vital Signs Temp 98.1 F 02/14/25 14:15 Pulse 80 02/14/25 14:15 Resp 18 02/14/25 14:15 BP 130/72 02/14/25 14:15 Pulse Ox 98 02/14/25 14:15 O2 Del Method Room Air 02/14/25 14:15 Pertinent Lab Results Pertinent Lab Results: Laboratory Tests 02/14/25 14:07 POC Glucose 136 H Assessment and Plan Final Anesthetic Review Family History of Problems with Anesthesia: No History of Problems with Anesthesia: No
--- NOTE | 2025-02-14 16:53 | P.OPN-COLO_ITS ---
Colonoscopy Operative Note Operative Note Date of Service: 02/14/25 Narrative: COLONOSCOPY TILL CECUM WITH BIOPSIES AND SNARE POLYPECTOMY Pre-op diagnosis: Colon cancer screening. Post-op diagnosis:? Colon polyps, Diverticulosis, hemorrhoids Endoscopist:? Mega Mustafa MD Anesthesia:?MAC Consent: Indications for the procedure and potential complications of bleeding, perforation, reaction to medications and missed diagnosis were discussed with the patient and informed consent was obtained. Instrument: Olympus CF H 190 L variable stiffness adult colonoscope Monitoring: Vital signs and clinical assessment, intermittent blood pressure monitoring, continuous EKG monitoring, Pulse oximetry and Carbon Dioxide monitoring were done throughout the procedure. Please see anesthesia flowsheet. Colon withdrawl time was 24 minutes. Procedure: The patient was placed in the left lateral decubitis position and pre-procedure medications were administered. After a digital rectal examination of the ano-rectum, the video colonoscope was inserted into the rectum and advanced through the colon to the cecum. The colonoscope was slowly withdrawn in a retrograde panoramic fashion and the colon mucosa was carefully examined including a retroflexed view of the rectum. Findings and interventions are described below. Procedure Difficulty: Colon was long and there was some spasm and loop formation Findings: Terminal Ileum: Not evaluated Cecum: Normal Ascending Colon: Normal Transverse Colon: A 3-4 mm diminutive appearing polyp - removed with a cold biopsy Descending Colon: Normal Sigmoid Colon: A 4-5 mm sessile polyp - removed with a cold biopsy. A 7-8 mm pedunculated polyp at 40 cms - removed with a hot snare. Moderate diverticulosis Rectum: Normal Ano-rectum: Moderate internal hemorrhoids Colon preparation: Good after copious irrigation. [place] Bowel Preparation Scale Right colon; 2 Transverse colon: 2 Left colon; 2 (0 = Unprepared colon segment with mucosa not seen due to solid stool that cannot be cleared. 1 = Portion of mucosa of the colon segment seen, but other areas of the colon segment not well seen due to staining, residual stool and/or opaque liquid. 2 = Minor amount of residual staining, small fragments of stool and/or opaque liquid, but mucosa of colon segment seen well. 3 = Entire mucosa of colon segment seen well with no residual staining, small fragments of stool or opaque liquid) Impression and Post Procedure Diagnosis: Colonoscopy Findings: Three small polyps were removed Moderate diverticulosis seen in the sigmoid colon Moderate hemorrhoids on retroflexed exam. Plan: I will send a letter with biopsy results. Repeat Colonoscopy in 3-5 years if polyps are adenomatous and 10 year if polyps are hyperplastic. Above findings were reviewed with the patient and relevant handouts were given and the discharge area.
[2025-02-14 16:59] VITALS: BP 94/61; PULSE 73; RESP 16; TEMP 36.4; O2SAT 96
[2025-02-14 17:15] VITALS: BP 115/73; PULSE 73; RESP 16; TEMP 36.4; O2SAT 96
== END 2025-02-14 17:17 | disposition home or self-care (01) ==
PROVIDERS: PCP Internal Medicine; Visit Provider Internal Medicine Gastroenterology
PROC: 0DJD8ZZ Inspection of Lower Intestinal Tract, Via Natural or Artificial Opening Endoscopic (ICD-10-PCS; CPT 45378; principal; 2025-02-14 15:30)
DX: Z12.11 Encounter for screening for malignant neoplasm of colon (principal); D12.5 Benign neoplasm of sigmoid colon; K63.5 Polyp of colon; K57.30 Diverticulosis of large intestine without perforation or abscess without bleeding; K64.8 Other hemorrhoids; I10 Essential (primary) hypertension; E11.65 Type 2 diabetes mellitus with hyperglycemia; E78.6 Lipoprotein deficiency; K21.9 Gastro-esophageal reflux disease without esophagitis; R97.20 Elevated prostate specific antigen [PSA]; N52.9 Male erectile dysfunction, unspecified; E66.09 Other obesity due to excess calories; Z68.30 Body mass index [BMI] 30.0-30.9, adult; G43.909 Migraine, unspecified, not intractable, without status migrainosus; J30.9 Allergic rhinitis, unspecified; Z87.891 Personal history of nicotine dependence; Z98.890 Other specified postprocedural states
CPT/HCPCS: 45385; 45380; 82947; 88305; J2003; J2704

== ENCOUNTER → 2025-02-14 13:25 | Outpatient (BNV) | payer BC, SELFPAY | PROVIDERS: PCP Internal Medicine; Visit Provider Internal Medicine Gastroenterology | DX: Z12.11 Encounter for screening for malignant neoplasm of colon (principal); D12.5 Benign neoplasm of sigmoid colon; K63.5 Polyp of colon; K57.30 Diverticulosis of large intestine without perforation or abscess without bleeding; K64.8 Other hemorrhoids | CPT/HCPCS: 45380; 45385 ==

== ENCOUNTER 2025-03-28 11:29 | Outpatient (AMB) | payer BC, SELFPAY ==
--- NOTE | 2025-03-28 11:32 | MHC.PC.OV ---
Vital Signs 03/28/25 11:42 03/28/25 12:27 Height 5 ft 10 in Weight 206 lb 4 oz BMI 29.6 BP 138/71 136/60 Blood Pressure Location Rt brachial Rt brachial Position Sitting Sitting Respiration 16 Pulse 99 Pulse Source Pulse Oximeter Temp 98.1 F Temp Source Oral Pulse Oximetry (%) 100 Oxygen Delivery Method Room Air Intake Visit Reasons: 2 mos HTN, DM Intake Note: patient here for 2 month follow up on HTN and DM Treasury Associate Required: Yes Treasury Associate Language: Hog Killer Name: patient refused Information Interpreted: non-clinical & clinical Allergies No Known Allergies Allergy (Verified 03/28/25 12:18) Medication List - Last Reconciled 03/28/25 by Sammy Marley CNP amlodipine 2.5 mg PO DAILY 90 days atorvastatin 20 mg PO DAILY blood pressure test kit-large check bp twice a day until stable then 2 times per week cholecalciferol (vitamin D3) 25 mcg PO DAILY 3 months dulaglutide (Trulicity) 3 mg (0.5 mL) subcut QWEEK 4 weeks finasteride 5 mg PO DAILY 90 days glipizide ER 20 mg (2 x 10 mg) PO DAILY lisinopril-hydrochlorothiazide 20-12.5 mg 1 tab PO BID 90 days metformin 1,000 mg PO BID miscellaneous medical supply One large BP cuff/monitor Tobacco use date assessed: 03/28/25 Dental Screening Dental Screen Date: 03/28/25 Did you have a dental visit in the last 12 months?: No Did you have a dental problem in the last 6 months where you did not have access to dental care?: No Was dental information given to patient?: Yes HPI HPI Comments History of Present Illness Details 64-year-old French-speaking male presents for diabetes and hypertension follow-up. He admits to taking his medications as prescribed without adverse reactions. He has been making lifestyle changes, including low-sodium diet and walking regularly. He offers no complaints and denies acute symptoms at this time. 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 [facility] Medical History (Updated 01/24/25 @ 15:10 by Sulema Shukla MD) Elevated prostate specific antigen [PSA] Erectile dysfunction Obesity due to excess calories Body mass index (BMI) greater than 30 in adult Type 2 diabetes mellitus with hyperglycemia Allergic rhinitis Overweight Hypertension Gastroesophageal reflux Hypocholesterolemia Insomnia Migraine Surgical History (Updated 02/14/25 @ 14:17 by Pamela Nj RN) Hx of colonoscopy H/O prostate biopsy H/O left knee surgery Family History Father Hypertension Mother Hypertension Sister Heart problem Social History Household Members Other:: sister Housing: Apartment Are you a primary primary care nurse practitioner to a significant other at home: No Do you presently have visiting nurse or other home services: No Alcohol intake: never Patient Tobacco Use Status: Former Tobacco user e-Cigarette/Vaping Use: Never Used Second Hand Smoke Exposure: No service: No Current occupational status: employed 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 Current occupational exposures/hazards: No Cognitive needs: No Hearing needs: No Vision needs: No Questionnaire Thrive Questionnaire Date Thrive assessed: 12/27/24 I am a: Patient What is your living situation today?: I have a steady place to live Within the past 12 months, did the food you bought not last and you didn't have the money to get more?: Never true Within the past 12 months, did you worry whether your food would run out before you got money to buy more?: Never true Do you have trouble paying for medicines?: No Do you have trouble getting transportation to medical appointments?: No Do you have trouble paying your heating and electricity bill?: No Do you have trouble taking care of your child, family member or friend?: No Do you have trouble with day-to-day activities such as bathing, preparing meals, shopping, managing finances, etc.?: No Are you currently unemployed and looking for a job?: No Are you interested in more education?: No Please select the resources that you would like help with: None Currently or been in a relationship where the following occur: No concerns reported THRIVE Score: 0 FLORENTIN-7 AMB Questionnaire FLORENTIN-7 Date FLORENTIN - 7 assessed: 12/27/24 Source: Developed by Drs. Flaco Austin, Carolyn Calabrese, Adair Pyle and colleagues, with an educational binu from [employer]. Review of Systems Const Details: Const Denies chills, Denies fatigue, Denies fever(s), Denies headache(s) and Denies weakness ENT Denies dizziness and Denies headache(s) Card Denies chest pain, Denies lightheadedness, Denies dyspnea and Denies other (Palpitations) Resp Denies cough, Denies dyspnea, Denies wheezing and Denies other ( shortness of breath) GI Denies abdominal pain, Denies melena, Denies hematochezia, Denies change in bowel habits, Denies dyspepsia and Denies nausea Denies hematuria and Denies dysuria Musc Denies abnormal gait, Denies myalgias, Denies arthralgias, Denies numbness and Denies tingling Skin/Breast Denies rash, Denies unusual bruising and Denies wounds Neuro Denies abnormal gait, Denies dizziness, Denies headache(s), Denies memory loss, Denies numbness, Denies Sensory deficit (Neuro), Denies tingling and Denies weakness Psych Denies anxiety, Denies depression, Denies memory loss Endo Denies cold intolerance, Denies fatigue, Denies heat intolerance, Denies polydipsia and Denies polyuria Aller/Immun Denies wheezing Physical exam (Primary Care) Vital Signs: Last Vital Signs Temp 98.1 F 03/28/25 11:42 Pulse 99 03/28/25 11:42 Resp 16 03/28/25 11:42 BP 138/71 03/28/25 11:42 Pulse Ox 100 03/28/25 11:42 Oxygen Delivery Method Room Air 03/28/25 11:42 BMI result Body Mass Index 29.6 Tobacco/Smoking Status: Tobacco use Status Tobacco use date assessed 03/28/25 03/28/25 11:46 Patient Tobacco Use Status Former Tobacco user 03/28/25 11:33 e-Cigarette/Vaping Use Never Used 03/28/25 11:33 Thrive Assessment: Date of Thrive Assessment Date Thrive assessed 12/27/24 03/28/25 11:33 Currently or been in a relationship where the following occur: No concerns reported Const Other: General: no acute distress and well developed Nutritional Appearance: well nourished Orientation/consciousness: patient oriented x3 HENMT Head: Yes normocephalic and Yes atraumatic Eyes General: appearance normal, both eyes and all related structures Pupils: Equal, round and reactive pupils present EOM: EOMs intact bilaterally Resp Effort & Inspection: normal respiratory effort Auscultation: clear to auscultation bilaterally Cardio Rate: regular rate Rhythm: regular rhythm Heart sounds: S1 normal heart sound present, S2 normal heart sound present, no gallops, no murmurs and no rubs GI Palpation (GI): No Abdominal aortic bruit present, Soft to palpation, nontender, No hepatosplenomegaly present and No Rebound tenderness present Auscultation: normal bowel sounds General: Yes no CVA tenderness Back/Spine/Pelvis Back: no CVA tenderness Cervical Spine: cervical ROM normal and No Cervical spine tenderness Thoracic/Lumbar Spine: thoraco-lumbar ROM normal, No pain with thoraco-lumbar ROM, No thoracic spinal tenderness and No lumbar spinal tenderness Extrem General: Yes normal to inspection, No edema and No calf tenderness Skin General: warm and dry. Normal skin color. Normal skin turgor Neuro General: patient oriented x3, gait normal and no focal neuro deficit Cranial nerves: Yes Equal, round and reactive pupils present Cognition (Neuro): normal cognition Gait exam (Neuro): Normal gait present Sensory Exam: No Sensory deficit (Neuro) Psych Appearance: grossly normal Affect: normal affect Attitude: cooperative Thought process: Normal thought process present Results AMB Hemoglobin A1c AMB Hemoglobin A1c 7.1 % Last Edit by Cassandra Horne MA on 03/28/25 12:28 Coding Level of Care Code Est Pt Level 3 (15589) Diagnoses Uncontrolled type 2 diabetes mellitus with hyperglycemia E11.65 Glycemic state: with hyperglycemia Primary hypertension I10 Hypertension type: primary hypertension Assessment & Plan Assessment & Plan (1) Diabetes type 2, uncontrolled: Code(s): E11.65 - Type 2 diabetes mellitus with hyperglycemia Category: Medical Qualifiers: Glycemic state: with hyperglycemia Qualified Code(s): E11.65 - Type 2 diabetes mellitus with hyperglycemia Plan: A1c today is 7.1%, slightly above goal of less than 7.0%. Previous A1c was 7.4%. Continue to take metformin and glipizide as prescribed. ADA diet and routine exercise encouraged. Follow-up in 3 months or sooner with symptoms or concerns. Verbalized understanding and agreed with the treatment plan. (2) Hypertension: Code(s): I10 - Essential (primary) hypertension Category: Medical Qualifiers: Hypertension type: primary hypertension Qualified Code(s): I10 - Essential (primary) hypertension Plan: Resting blood pressure is 136/60, above goal of less than 130/80. Will increase amlodipine to 5 mg daily; advised to take as prescribed. May take two 2.5 mg to equal 5 mg daily. Low-sodium diet encouraged. Follow-up in 3 months. Verbalized understanding and agreed with the plan. Orders: Orders AMB Hemoglobin A1c Today Z13.9 - Encounter for screening, unspecified Medications: New amlodipine 5 mg PO DAILY 90 days 90 tabs 1RF Discontinued amlodipine Discontinued Reason: Doctor's Order 2.5 mg PO DAILY 90 days 90 tabs 1RF
[2025-03-28 11:42] VITALS: BP 138/71; PULSE 99; RESP 16; TEMP 36.7; O2SAT 100; BMI 29.6
--- OUTSIDE RECORDS SUMMARY | 2025-03-28 12:19 | XMS_ITS | Clinical Summary ---
Author Organization [address] [facility] Address [address] [place] [address] Phone Care Team Providers Care Pastry Mixer Name Role Phone Sammy Marley RECEIVABLE MANAGER Primary Care Provider [phone] Allergies No known active allergies Medications ketoconazole (NIZORAL) 2 % cream Apply topically 1 (one) time each day. 60 g 2 Active Encounters Date Type Department Care Team Description 03/14/2025 9:00 AM EDT Consult Orthopedic Surgery [facility] [address] [facility] [address] [place] [address] Ruben Clifford DPM Controlled type 2 diabetes with neuropathy (CMS/HCC V24, CMS/HCC V28) (Primary Dx); Arthritis of both feet; Tinea pedis of both feet; Chronic pain of left knee from Last 3 Months Immunizations Name Administration Dates Next Due Tdap Tetanus diptheria acell ular pertussis (Boostrix; Adacel) 7yo and older 07/04/2008 Surgical History Surgery Date Site/Laterality Comments KNEE ARTHROSCOPY PROCEDURE: DE ARTHROSCOPY KNEE DIAGNOSTIC W/WO SYNOVIAL BX SPX; [...] Upcoming Encounters Date Type Department Care Team ([facility] st Contact Info) Description 09/12/2025 8:30 AM EDT Office Visit Orthopedic Surgery - [place] [address] [facility] [address] [place] [id number] Ruben Clifford, DPDandre [address] [facility] [address] [place] [address] Health Maintenance Due Date Last Done Comments Diabetes: Annual Foot Exam 1972 Diabetes: Annual Retina Eye Exam 1972 Diabetes: Annual GFR (Glomerular Filtration Rate) 07/05/2009 07/05/2008 Pneumococcal Vaccine: 50+ Years (2 of 2 - PCV) 01/03/2021 01/03/2020 Pneumococcal Vaccine: Pediatrics (0 to 5 Years) and At-Risk Patients (6 to 64 Years) (2 of 2 - PCV) 01/03/2021 01/03/2020 RSV Immunization Adult Patients (1 - Risk 60-74 years 1-dose series) 2022 Cholesterol Screening (Lipid Panel) 12/12/2023 07/05/2008 Colorectal Cancer Screening: Colonoscopy 12/12/2023 Depression Screening 12/12/2023 HIV Screening 12/12/2023 Hepatitis C Screening 12/12/2023 Social Influencers of Health Screening 12/12/2023 COVID-19 Vaccine (2 - season) 2024 09/11/2021 Zoster Vaccines (2 of 2) 10/18/2024 08/23/2024 Diabetes: Annual Urine Albumin-Creatinine Ratio (uACR) 01/14/2025 Diabetes: Blood Sugar Control Test (HGBA1C) 01/14/2025 DTaP,Tdap,and Td Vaccines (3 - Td or Tdap) 11/09/2029 11/09/2019, 07/04/2008 Influenza Vaccine Completed 07/11/2024, , 12/24/2021, Additional history exists HIB Vaccines Aged Out No longer eligi [...] age to complete this topic Meningococcal B Vaccine Aged Out No l onger eligible based on patient's age to complete this topic RSV Immunization Patients Under 20 months Aged Out No longer eligible based on [...] Results * Annual BMP Blood Test (07/05/2008) Pathologist [facility] Annual BMP Blood Test abstracted Historical Provider HEALTH MAINTENANCE Final Result * Lipid panel (07/05/2008) Pathologist [facility] LDL/HDL Ratio 4 0 - 4 Triglycerides 84 0 - 150 mg/dL Cholesterol 149 0 - 200 mg/dL HDL 42 >=40 mg/dL LDL Cholesterol 91 0 - 100 mg/dL Blood Venous blood specimen / Unknown Historical Provider LAB BLOOD ORDERABLES Dahlia l Result from Last 3 Months or Most Recently Relevant to Health Maintenance Insurance [facility] Care Teams Pastry Mixer Relationship Specialty Start Date End Date Sammy Marley FNP [address] [place] [address] PCP - General Family Medicine 01/14/25
--- OUTSIDE RECORDS SUMMARY | 2025-03-28 12:19 | XMS_ITS | Clinical Summary ---
Author Organization [facility] Address [address] [place] [address] Care Team Providers Care Nutrition Manager Name Role Phone Unavailable Primary Care Provider [...]
[2025-03-28 12:27] VITALS: BP 136/60
== END 2025-03-28 12:27 | disposition home or self-care (01) ==
LOC: HO.HMCFM 11:30
PROVIDERS: PCP Nurse Practitioner Family; Visit Provider Nurse Practitioner Family
DX: E11.65 Type 2 diabetes mellitus with hyperglycemia (principal); I10 Essential (primary) hypertension; Z13.9 Encounter for screening, unspecified

== ENCOUNTER → 2025-03-28 11:29 | Outpatient (BNVA) | payer BC, SELFPAY | PROVIDERS: PCP Nurse Practitioner Family; Visit Provider Nurse Practitioner Family | DX: E11.65 Type 2 diabetes mellitus with hyperglycemia (principal); I10 Essential (primary) hypertension; Z79.84 Long term (current) use of oral hypoglycemic drugs; Z79.899 Other long term (current) drug therapy | CPT/HCPCS: 83036 ==

== ENCOUNTER 2025-06-27 09:55 | Outpatient (REF) | payer BC, SELFPAY ==
--- OUTSIDE RECORDS SUMMARY | 2025-06-27 10:29 | XMS_ITS | Clinical Summary ---
Author Organization 175 [facility] Address [address] [place] [address] Phone Care Team Providers Care Basin Tender Name Role Phone Sammy Marley LINE CONSTRUCTION ENGINEER Primary Care Provider [phone] Allergies No known active allergies Medications ketoconazole (NIZORAL) 2 % cream Apply topically 1 (one) time each day. 60 g 2 5 Active amLODIPine (NORVASC) 5 mg tablet Take 1 tablet (5 mg total) by mouth 1 (one) time each day. 5 Active atorvastatin (LIPITOR) 20 mg tablet Take 1 tablet (20 mg total) by mouth at bedtime. Active Trulicity 3 mg/0.5 mL pen injector injection Inject 0.5 mL (3 mg total) under the skin. 5 Active finasteride (PROSCAR) 5 mg tablet TOME 1 TABLETA POR V A ORAL TODOS LOS D Active glipiZIDE (GLUCOTROL XL) 10 mg 24 hr tablet Take 1 tablet (10 mg total) by mouth 1 (one) time each day. Active lisinopril-hydr oCHLOROthiazide (PRINZIDE,ZESTO RETIC) 20-12.5 mg per tablet Take 1 tablet by mouth 2 (two) times a day. Active metFORMIN (GLUCOPHAGE) 1,000 mg tablet take 1 tablet orally 2 times a day Active Encounters Date Type Department Care Team Description 04/18/2025 9:00 AM EDT Consult Orthopedics - [place] [address] Salvador Mccord PA Post-traumatic osteoarthritis of left knee (Primary Dx); Chronic pain of left knee 04/18/2025 8:26 AM EDT - 04/18/2025 11:59 PM EDT Hospital Encounter XRAY - [place] [address] [place] [address] Acute pain of left knee Discharge Disposition: Home or Self Care from Last 3 Months Immunizations Name Administration Dates Next Due Tdap Tetanus diptheria acell ular pertussis (Boostrix; Adacel) 7yo and older 07/04/2008 Surgical History Surgery Date Site/Laterality Comments KNEE ARTHROSCOPY PROCEDURE: [place] ARTHROSCOPY KNEE DIAGNOSTIC W/WO SYNOVIAL BX SPX; COMMENT: right knee Family History Relation Name Status Comments Brother 1 Alive Brother 2 Alive Father Alive HTN Mother Alive Sister 1 Alive Heart problems? Sister 2 Alive Sister 3 Alive Social History Tobacco Use Types Packs/Day Years Used Date Smoking Tobacco: Former Cigarettes Smokeless Tobacco: Never Alcohol Use Standard Drinks/Week Comments No 0 (1 standard drink = 0.6 oz pur e alcohol) Sex and Gender Information Value Date Recorded Sex Assigned at Not on file Legal Sex Male 9:10 PM EST Gender Identity Not on file Sexual Orientation Not on file Obstetrics History Last Filed Vital Signs Vital Sign Reading Time Taken Comments Blood Pressure - - Pulse - - Temperature - - Respiratory Rate 16 04/18/2025 8:50 AM EDT Oxygen Saturation - - Inhaled Oxygen Concentration - - Weight 93 kg (205 lb) 04/18/2025 8:50 AM EDT Height 177.8 cm (5' 10 ) 04/18/2025 8:50 AM EDT Body Mass Index 29.41 04/18/2025 8:50 AM EDT Plan of Treatment Upcoming Encounters Date Type Department Care Team (Late st Contact Info) Description 09/12/2025 8:30 AM EDT Office Visit Orthopedic Surgery - [place] [address] [phone] Ruben Clifford DPM [address] [address] Health Maintenance Due Date Last Done Comments Pneumococcal Vaccine: 50+ Years (2 of 2 - PCV) 01/03/2021 01/03/2020 RSV Immunization Adult Patients (1 - Risk 60-74 years 1-dose series) 2022 Cholesterol Screening (Lipid Panel) 12/12/2023 07/05/2008 Colorectal Cancer Screening: Colonoscopy 12/12/2023 HIV Screening 12/12/2023 Hepatitis C Screening 12/12/2023 Social Influencers of Health Screening 12/12/2023 COVID-19 Vaccine (2 - season) 2024 09/11/2021 Zoster Vaccines (2 of 2) 10/18/2024 08/23/2024 Depression Screening 11/17/2024 Influenza Vaccine (#1) 2025 , 08/14/2023, 12/24/2021, Additional history exists DTaP,Tdap,and Td Vaccines (3 - Td or Tdap) 11/09/2029 11/09/2019, 07/04/2008 HIB Vaccines Aged Out No longer eligi [...] Procedure Name Priority Date/Time Associated Diagnosis Comments XR KNEE 4+ VIEWS LEFT Routine 04/18/2025 8:44 AM EDT Acute pain of left knee LIPID PANEL Routine 07/05/2008 from Last 3 Months or Most Recently Relevant to Health Maintenance Results * XR Knee 4+ Views Left (04/18/2025 8:44 AM EDT) Anatomical Region Laterality Modality Lower Extremities, Knee Left Radiogra phic Imaging 04/18/2025 12:0 8 PM EDT Impressions 04/18/2025 12:11 PM EDT Chronic posttraumatic changes with superimposed degenerative changes of the left knee. -------- FINAL REPORT -------- Dictated By: Steph Dunbar Dictated Date: 04/18/2025 12:08 ET Assigned Physician: Steph Dunbar Reviewed and Electronically Signed By: Steph Dunbar Signed Date: 04/18/2025 12:11 ET Workstation ID: [id number] Transcribed By: Self Edit Transcribed Date: 04/18/2025 12:08 ET Narrative 04/18/2025 12:11 PM EDT XR KNEE 4+ VIEWS LEFT Reason: JOINT PAIN, KNEE Comparison: None FINDINGS: Screws traversing the proximal tibia appear intact. No acute fractures. Narrowing of the lateral femorotibial compartment. Irregularity of the bilateral tibial plateau with osteophytes, medial large the lateral, and small calcifications on the lateral side of the femorotibial joint likely represents posttraumatic changes with superimpose degenerative changes. No subluxation. Irregularity of the lateral aspect of the patella is probably sequela from prior trauma. Posterior patellar spur. Small suprapatellar joint effusion. Procedure Note Steph Dunbar MD - 04/18/2025 XR KNEE 4+ VIEWS LEFT Reason: JOINT PAIN, KNEE Comparison: None FINDINGS: Screws traversing the proximal tibia appear intact. No acute fractures.Narrowing of the lateral femorotibial compartment. Irregularity of thebilateral tibial plateau with osteophytes, medial large the lateral, andsmall calcifications on the lateral side of the femorotibial joint likelyrepresents posttraumatic changes with superimpose degenerative changes.No subluxation. Irregularity of the lateral aspect of the patella isprobably sequela from prior trauma. Posterior patellar spur. Smallsuprapatellar joint effusion. IMPRESSION: Chronic posttraumatic changes with superimposed degenerative changes ofthe left knee. -------- FINAL REPORT -------- Dictated By: Steph Dunbar Dictated Date: 04/18/2025 12:08 ET Assigned Physician: Steph Dunbar Reviewed and Electronically Signed By: Steph Dunbar Signed Date: 04/18/2025 12:11 ET Workstation ID: [id number] Transcribed By: Self Edit Transcribed Date: 04/18/2025 12:08 ET Salvador TY IMG XR PROCEDURES Final Result * Lipid panel (07/05/2008) LDL/HDL Ratio 4 0 - 4 Triglycerides 84 0 - 150 mg/dL Cholesterol 149 0 - 200 mg/dL HDL 42 >=40 mg/dL LDL Cholesterol 91 0 - 100 mg/dL Blood Venous blood specimen / Unknown Historical Provider LAB BLOOD ORDERABLES Dahlia l Result from Last 3 Months or Most Recently Relevant to Health Maintenance Insurance [facility] Care Teams Basin Tender Relationship Specialty Start Date End Date Sammy Marley FNP [address] [place] [phone] PCP - General Family Medicine 01/14/25
--- OUTSIDE RECORDS SUMMARY | 2025-06-27 10:29 | XMS_ITS | Clinical Summary ---
Author Organization [facility] Address [address] [place] [address] Care Team Providers Care Night Stocker Name Role Phone Unavailable Primary Care Provider [...]
[2025-06-27 12:22] LABS: Cholesterol 104 mg/dL (<200); HDL Cholesterol 45 mg/dL (>40); Triglycerides 55 mg/dL (<150)
== END 2025-06-27 09:56 | disposition home or self-care (01) ==
LOC: HO.WFDLDS 09:55
PROVIDERS: Visit Provider Nurse Practitioner Family
DX: E78.6 Lipoprotein deficiency (principal); E11.65 Type 2 diabetes mellitus with hyperglycemia
CPT/HCPCS: 36415; 80061

== ENCOUNTER 2025-07-04 10:35 | Outpatient (AMB) | payer BC, SELFPAY ==
--- NOTE | 2025-07-04 10:39 | A.OFFPC_ITS ---
Vital Signs 07/04/25 10:47 07/04/25 11:09 Height 5 ft 10 in Weight 204 lb 6 oz BMI 29.3 BP 138/66 124/70 Blood Pressure Location Lt brachial Lt brachial Position Sitting Sitting Respiration 16 Pulse 79 Pulse Source Pulse Oximeter Temp 97.8 F Temp Source Oral Pulse Oximetry (%) 97 Intake Visit Reasons: HTN, DM 3 mos Intake Note: patient here for 3 month follow up on HTN and DM Clinical Editor Required: Yes Clinical Editor Language: Customs Brokerage Manager Name: Bjorn [id number] Information Interpreted: non-clinical & clinical Allergies No Known Allergies Allergy (Verified 07/04/25 11:00) Medication List - Last Reconciled 07/04/25 by Sammy Marley CNP amlodipine 5 mg PO DAILY 90 days atorvastatin 20 mg PO DAILY blood pressure test kit-large check bp twice a day until stable then 2 times per week cholecalciferol (vitamin D3) 25 mcg PO DAILY 3 months dulaglutide (Trulicity) 3 mg (0.5 mL) subcut QWEEK 4 weeks finasteride 5 mg PO DAILY 90 days glipizide ER 20 mg (2 x 10 mg) PO DAILY lisinopril-hydrochlorothiazide 20-12.5 mg 1 tab PO BID 90 days metformin 1,000 mg PO BID miscellaneous medical supply One large BP cuff/monitor Tobacco use date assessed: 07/04/25 Dental Screening Dental Screen Date: 07/04/25 Did you have a dental visit in the last 12 months?: No Did you have a dental problem in the last 6 months where you did not have access to dental care?: No Was dental information given to patient?: No HPI HPI Comments History of Present Illness Details 64-year-old Greek-speaking male presen for diabetes and hypertension follow-up. He admits to taking his medications as prescribed without adverse reactions. He has been making lifestyle changes, including low-sodium diet and walking regularly. He offers no complaints and denies acute symptoms at this time. Interpretation by a professional american sign language interpreter virtually. [facility] Medical History (Updated 01/24/25 @ 15:10 by Sulema Shukla MD) Elevated prostate specific antigen [PSA] Erectile dysfunction Obesity due to excess calories Body mass index (BMI) greater than 30 in adult Type 2 diabetes mellitus with hyperglycemia Allergic rhinitis Overweight Hypertension Gastroesophageal reflux Hypocholesterolemia Insomnia Migraine Surgical History (Updated 02/14/25 @ 14:17 by Pamela Nj RN) Hx of colonoscopy H/O prostate biopsy H/O left knee surgery Family History Father Hypertension Mother Hypertension Sister Heart problem Social History Household Members Other:: sister Housing: Apartment Are you a primary critical care specialist to a significant other at home: No Do you presently have visiting nurse or other home services: No Alcohol intake: never Patient Tobacco Use Status: Former Tobacco user e-Cigarette/Vaping Use: Never Used Second Hand Smoke Exposure: No service: No Current occupational status: employed 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 Current occupational exposures/hazards: No Cognitive needs: No Hearing needs: No Vision needs: No Questionnaire Thrive Questionnaire Date Thrive assessed: 12/27/24 I am a: Patient What is your living situation today?: I have a steady place to live Within the past 12 months, did the food you bought not last and you didn't have the money to get more?: Never true Within the past 12 months, did you worry whether your food would run out before you got money to buy more?: Never true Do you have trouble paying for medicines?: No Do you have trouble getting transportation to medical appointments?: No Do you have trouble paying your heating and electricity bill?: No Do you have trouble taking care of your child, family member or friend?: No Do you have trouble with day-to-day activities such as bathing, preparing meals, shopping, managing finances, etc.?: No Are you currently unemployed and looking for a job?: No Are you interested in more education?: No Please select the resources that you would like help with: None Currently or been in a relationship where the following occur: No concerns reported THRIVE Score: 0 FLORENTIN-7 AMB Questionnaire FLORENTIN-7 Date FLORENTIN - 7 assessed: 12/27/24 Source: Developed by Drs. Flaco Austin, Carolyn Calabrese, Adair Pyle and colleagues, with an educational binu from [employer] Review of Systems Const Details: Const Denies chills, Denies fatigue, Denies fever(s), Denies headache(s) and Denies weakness ENT Denies dizziness and Denies headache(s) Card Denies chest pain, Denies lightheadedness, Denies dyspnea and Denies other (Palpitations) Resp Denies cough, Denies dyspnea, Denies wheezing and Denies other ( shortness of breath) GI Denies abdominal pain, Denies melena, Denies hematochezia, Denies change in bowel habits, Denies dyspepsia and Denies nausea Denies hematuria and Denies dysuria Musc Denies abnormal gait, Denies myalgias, Denies arthralgias, Denies numbness and Denies tingling Skin/Breast Denies rash, Denies unusual bruising and Denies wounds Neuro Denies abnormal gait, Denies dizziness, Denies headache(s), Denies memory loss, Denies numbness, Denies Sensory deficit (Neuro), Denies tingling and Denies weakness Psych Denies anxiety, Denies depression, Denies memory loss Endo Denies cold intolerance, Denies fatigue, Denies heat intolerance, Denies polydipsia and Denies polyuria Aller/Immun Denies wheezing Physical exam (Primary Care) Vital Signs: Last Vital Signs Temp 97.8 F 07/04/25 10:47 Pulse 79 07/04/25 10:47 Resp 16 07/04/25 10:47 BP 138/66 07/04/25 10:47 Pulse Ox 97 07/04/25 10:47 BMI result Body Mass Index 29.3 Tobacco/Smoking Status: Tobacco use Status Tobacco use date assessed 07/04/25 07/04/25 10:51 Patient Tobacco Use Status Former Tobacco user 07/04/25 10:40 e-Cigarette/Vaping Use Never Used 07/04/25 10:40 Thrive Assessment: Date of Thrive Assessment Date Thrive assessed 12/27/24 07/04/25 10:40 Currently or been in a relationship where the following occur: No concerns reported Const Other: General: no acute distress and well developed Nutritional Appearance: well nourished Orientation/consciousness: patient oriented x3 HENMT Head: Yes normocephalic and Yes atraumatic Eyes General: appearance normal, both eyes and all related structures Pupils: Equal, round and reactive pupils present EOM: EOMs intact bilaterally Resp Effort & Inspection: normal respiratory effort Auscultation: clear to auscultation bilaterally Cardio Rate: regular rate Rhythm: regular rhythm Heart sounds: S1 normal heart sound present, S2 normal heart sound present, no gallops, no murmurs and no rubs GI Palpation (GI): No Abdominal aortic bruit present, Soft to palpation, nontender, No hepatosplenomegaly present and No Rebound tenderness present Auscultation: normal bowel sounds General: Yes no CVA tenderness Back/Spine/Pelvis Back: no CVA tenderness Cervical Spine: cervical ROM normal and No Cervical spine tenderness Thoracic/Lumbar Spine: thoraco-lumbar ROM normal, No pain with thoraco-lumbar R OM, No thoracic spinal tenderness and No lumbar spinal tenderness Extrem General: Yes normal to inspection, No edema and No calf tenderness Skin General: warm and dry. Normal skin color. Normal skin turgor Neuro General: patient oriented x3, gait normal and no focal neuro deficit Cranial nerves: Yes Equal, round and reactive pupils present Cognition (Neuro): normal cognition Gait exam (Neuro): Normal gait present Sensory Exam: No Sensory deficit (Neuro) Psych Appearance: grossly normal Affect: normal affect Attitude: cooperative Thought process: Normal thought process present Results AMB Hemoglobin A1c AMB Hemoglobin A1c 6.6 % Last Edit by Cassandra Horne MA on 07/04/25 11:03 Coding Level of Care Code Est Pt Level 3 (37062) Diagnoses Primary hypertension I10 Hypertension type: primary hypertension Diabetes mellitus type II, controlled, with no complications E11.9 Laboratory tests ordered as part of a complete physical exam (CPE) Z00.00 Assessment & Plan Assessment & Plan (1) Hypertension: Code(s): I10 - Essential (primary) hypertension Category: Medical Qualifiers: Hypertension type: primary hypertension Qualified Code(s): I10 - Essential (primary) hypertension Plan: Resting blood pressure is 120/70, within goal of less than 130/80. Continue current treatment regimen. Low-sodium diet and routine exercise encouraged. Perform lab work and follow-up for an extended physical exam and labs review in 2 months. Return sooner with symptoms or concerns. Verbalized understanding and agreed with the plan. (2) Diabetes mellitus type II, controlled, with no complications: Code(s): E11.9 - Type 2 diabetes mellitus without complications Category: Medical Plan: A1c today 6.6%, within goal of less than 7.0%. Previous A1c was 7.1%. Continue current treatment regimen. ADA diet and routine exercise encouraged. Will recheck A1c level in 3 months. Verbalized understanding and agreed with the plan. (3) Laboratory tests ordered as part of a complete physical exam (CPE): Code(s): Z00.00 - Encounter for general adult medical examination without abnormal findings Category: Medical Plan: Fasting labs ordered as part of a complete physical exam. Advised to fast for at least 10 hours before getting labs drawn. May drink water Verbalized understanding and agreed with treatment plan. Orders: Orders AMB Hemoglobin A1c Today Z13.9 - Encounter for screening, unspecified Comprehensive [place]. Panel Fast Today Z00.00 - Encounter for general adult medical examination without abnormal findings UA CC w/rflx Micro + Cult Today Z00.00 - Encounter for general adult medical examination without abnormal findings Complete Blood Count Auto Diff Today Z00.00 - Encounter for general adult medical examination without abnormal findings Vitamin D 25-OH Total Today Z00.00 - Encounter for general adult medical examination without abnormal findings TSH reflex Free T4 Today Z00.00 - Encounter for general adult medical examination without abnormal findings Medications: Refilled dulaglutide (Trulicity) 3 mg (0.5 mL) subcut QWEEK 2 mL 3RF 4 weeks
[2025-07-04 10:47] VITALS: BP 138/66; PULSE 79; RESP 16; TEMP 36.6; O2SAT 97; BMI 29.3
[2025-07-04 11:09] VITALS: BP 124/70
--- OUTSIDE RECORDS SUMMARY | 2025-07-04 11:35 | XMS_ITS | Patient Health Record ---
Author Organization [facility] Address [address] [place] [address] Care Team Providers Care Dividing Machine Operator Helper Name Role Phone Elizabeth (RETIRED) Kofi ORTEGA Primary Care Provide r Alex Arevalo Jr Unavailable [phone] Reason For Referral No Information Medications Medication SIG (Take, Route, Frequency, Duration) Notes Start Date End Date Status Colyte with Flavor Packs 240 GM As directed Orally Over the specified time. for 1 day(s) 04/19/2015 Active Social History Tobacco Use: Social History Observation Description Date Details (start date - stop date) Never Smoker NA - NA Tobacco Use/Smoking Question Answer Notes Patient is a nonsmoker Alcohol Screen Question Answer Notes Did you have a drink containing alcohol in the p ast year? No Points 0 Interpretation Negative Problems Problem Type SNOMED Code ICD Code Onset Dates Problem Status W/U Status Risk Notes Problem [id number] Colon cancer screening (V76.51) Active confirmed Plan Of Treatment Future Test Test Name Order Date COLONOSCOPY 04/19/2015 Insurance Providers Payer Name Payer Address Payer Phone Subscriber Number Group Number Insured Name Patient Relationship to Insured Coverage Start Date Coverage End Date [facility] [address] [place], [place] [id number] [phone] [id number] DILLON ULLOA Self - patient is the insured Medical (General) History Medical History History ICD Code Denies UT,DM,CVA,Lung disease,renal dise ase Surgical History Surgery Date(Month/Year) knee surgery
--- OUTSIDE RECORDS SUMMARY | 2025-07-04 11:35 | XMS_ITS | Clinical Summary ---
Author Organization 175 [facility] Address [address] [place] [address] Phone Care Team Providers Care Engineer Steam Name Role Phone Sammy Marley DRILL OPERATOR Primary Care Provider [phone] Allergies No known active allergies Medications ketoconazole [...] 04/18/2025 9:00 AM EDT Consult Orthopedics - [place] [address] Salvador Mccord PA Post-traumatic osteoarthritis of left knee (Primary Dx); Chronic pain of left knee 04/18/2025 8:26 AM EDT - 04/18/2025 11:59 PM EDT Hospital Encounter XRAY - [place] [address] [place] [address] Acute pain of left knee Discharge Disposition: Home or Self Care from Last 3 Months Immunizations Name Administration Dates Next Due Tdap Tetanus diptheria acell ular pertussis (Boostrix; Adacel) 7yo and older 07/04/2008 Surgical History Surgery Date Site/Laterality Comments KNEE ARTHROSCOPY PROCEDURE: [place] ARTHROSCOPY KNEE DIAGNOSTIC W/WO SYNOVIAL BX SPX; [...] AM EDT Office Visit Orthopedic Surgery - [place] [address] [phone] Ruben Clifford DPM [address] [address] Health Maintenance Due Date Last Done Comments [...] Signed Date: 04/18/2025 12:11 ET Workstation ID: [id number] Transcribed By: Self Edit Transcribed Date: 04/18/2025 [...] Signed Date: 04/18/2025 12:11 ET Workstation ID: [id number] Transcribed By: Self Edit Transcribed Date: 04/18/2025 12:08 ET Salvdaor TY IMG XR PROCEDURES Final Result * [...] Most Recently Relevant to Health Maintenance Insurance [employer] Care Teams Engineer Steam Relationship Specialty Start Date End Date Sammy Marley FNP [address] [place] [phone] PCP - General Family Medicine 01/14/25
--- OUTSIDE RECORDS SUMMARY | 2025-07-04 11:35 | XMS_ITS | Clinical Summary ---
Author Organization [facility] Address [address] [place] [address] Care Team Providers Care [employer] Rep Name Role Phone Unavailable Primary Care Provider [...]
== END 2025-07-04 11:13 | disposition home or self-care (01) ==
LOC: HO.HMCFM 10:36
PROVIDERS: PCP Nurse Practitioner Family; Visit Provider Nurse Practitioner Family
DX: I10 Essential (primary) hypertension (principal); E11.9 Type 2 diabetes mellitus without complications; Z00.00 Encounter for general adult medical examination without abnormal findings; Z13.9 Encounter for screening, unspecified

== ENCOUNTER → 2025-07-04 10:35 | Outpatient (BNVA) | payer BC, SELFPAY | PROVIDERS: PCP Nurse Practitioner Family; Visit Provider Nurse Practitioner Family | DX: Z00.00 Encounter for general adult medical examination without abnormal findings (principal); I10 Essential (primary) hypertension; E11.9 Type 2 diabetes mellitus without complications | CPT/HCPCS: 83036 ==

== ENCOUNTER 2025-09-02 05:59 | Outpatient (REF) | payer BC, SELFPAY ==
--- OUTSIDE RECORDS SUMMARY | 2025-09-02 06:02 | XMS_ITS | Clinical Summary ---
Author Organization [facility] Address [address] [place] [address] Care Team Providers Care Water And Sewer Systems Supervisor Name Role Phone Unavailable Primary Care Provider [...]
--- OUTSIDE RECORDS SUMMARY | 2025-09-02 06:03 | XMS_ITS | Clinical Summary ---
Author Organization 175 [facility] Address [address] [place] [address] Phone Care Team Providers Care Supervisor Tunnel Heading Name Role Phone Sammy Marley Z OS MAINFRAME SYSTEMS PROGRAMMER Primary Care Provider [phone] Allergies No known active allergies Medications ketoconazole [...] tablet orally 2 times a day Active Immunizations Immunization Administration Dates Next Due Tdap Tetanus diptheria acell ular pertussis (Boostrix; Adacel) 7yo and older 07/04/2008 Surgical History Surgery Date Site/Laterality Comments KNEE ARTHROSCOPY PROCEDURE: [place] ARTHROSCOPY KNEE DIAGNOSTIC W/WO SYNOVIAL BX SPX; [...] AM EDT Office Visit Orthopedic Surgery - [place] [address] [phone] Ruben Clifford, ALEX [address] [address] Health Maintenance Due Date Last Done Comments Colorectal Cancer Screening: Colonoscopy 1962 RSV Immunization Adult Patients (1 - Risk 50-74 years 1-dose series) 2012 Pneumococcal Vaccine: 50+ Years (2 of 2 - PCV) 01/03/2021 01/03/2020 Cholesterol Screening (Lipid Panel) 12/12/2023 07/05/2008 HIV Screening 12/12/2023 Hepatitis C Screening 12/12/2023 Social Influencers of Health Screening 12/12/2023 Zoster Vaccines (2 of 2) 10/18/2024 08/23/2024 Depression Screening 11/17/2024 COVID-19 Vaccine (2 - 2024- season) 2025 09/11/2021 Influenza Vaccine (#1) 2025 , 08/14/2023, 12/24/2021, [...] Procedure Name Priority Date/Time Associated Diagnosis Comments LIPID PANEL Routine 07/05/2008 from Last 3 Months or Most Recently Relevant to Health Maintenance Results * Lipid panel (07/05/2008) LDL/HDL Ratio 4 0 - 4 Triglycerides 84 0 - 150 mg/dL Cholesterol 149 0 - 200 mg/dL HDL 42 >=40 mg/dL LDL Cholesterol 91 0 - 100 mg/dL Blood Venous blood specimen / Unknown [facility] Provider LAB BLOOD ORDERABLES Dahlia l Result from Last 3 Months or Most Recently Relevant to Health Maintenance Insurance [facility] Care Teams Supervisor Tunnel Heading Relationship Specialty Start Date End Date Sammy Marley FNP [address] [place] [address] PCP - General Family Medicine 01/14/25
--- OUTSIDE RECORDS SUMMARY | 2025-09-02 06:03 | XMS_ITS | Patient Health Record ---
Author Organization [facility] Address [address] [place] [address] Care Team Providers Care Rope Machine Setter Name Role Phone Elizabeth (RETIRED) Kofi ORTEGA Primary Care Provide r Alex Arevalo Jr Unavailable Reason For Referral No Information Medications Medication SIG (Take, Route, Frequency, Duration) Notes Start Date End Date Status Colyte with Flavor Packs 240 GM As directed Orally Over the specified time.; Duration: 1 day(s) 04/19/2015 Active Social History Tobacco [...] Problem Status W/U Status Risk Notes Problem Colon cancer screening (183913660) Colon cancer screening (V76.51) Active confirmed Plan Of Treatment Future Test Test Name Order Date COLONOSCOPY 04/19/2015 Insurance Providers Payer Name Payer Address Payer Phone Subscriber Number Group Number Insured Name Patient Relationship to Insured Coverage Start Date Coverage End Date [facility] [address] [place], [place] [id number] DILLON ULLOA Self - patient is the insured Medical (General) History Medical History History ICD Code Denies [place],DM,CVA,Lung disease,renal dise ase Surgical History Surgery Date(Month/Year) knee surgery
[2025-09-02 06:11] LABS: MANUAL DIFF FLAG NO
[2025-09-02 07:36] LABS: Hematocrit 38.5 % (42.0-52.0); Hemoglobin 12.5 g/dl (14.0-18.0); Imm Gran Abs Auto 0.04 X10*3/uL (0.00-0.03); Imm Gran Pct Auto 0.4 % (0.0-0.4); Lymphocytes Absolute Auto 2.2 X10*3/uL (1.2-4.9); Mean Corpuscular HGB Conc 32.5 g/dl (31.0-36.0); Mean Corpuscular Hemoglobin 28.2 pg (27.0-33.0); Mean Corpuscular Volume 86.9 fL (80.0-98.0); NRBC Abs Auto 0.000 X10*3/uL (0.0-0.012); NRBC Pct Auto 0.0 /100WBC (0.0-0.2); Platelet Count 273 X10*3/uL (160-400); Red Blood Count 4.43 X10*6/uL (4.60-5.80); White Blood Count 9.0 X10*3/uL (4.8-10.8)
[2025-09-02 07:50] LABS: Appearance Urine Clear; Glucose Urine UA Negative (Negative); PH 6.0 (5.0-9.0); Specific Gravity - Urine 1.020 (1.005-1.025)
[2025-09-02 07:59] LABS: Alanine Aminotransferase 17 U/L (0-40); Albumin Level 4.3 g/dL (3.5-5.0); Alkaline Phosphatase 30 U/L (39-117); Anion Gap 12 (12-20); Aspartate Amino Transferase 15 U/L (5-37); Blood Urea Nitrogen 30 mg/dL (9-16); Calcium 9.1 mg/dL (8.4-10.2); Carbon Dioxide 28 mmol/L (22-29); Chloride 105 mmol/L (96-108); Estimated Glomerular Filt Rate > 60; Potassium 3.8 mmol/L (3.3-5.1); Sodium 141 mmol/L (135-145); Total Protein 7.0 g/dL (6.5-8.0)
== END 2025-09-02 06:00 | disposition home or self-care (01) ==
LOC: HO.LAB 05:59
PROVIDERS: PCP Nurse Practitioner Family; Visit Provider Nurse Practitioner Family
DX: Z00.00 Encounter for general adult medical examination without abnormal findings (principal); Z13.21 Encounter for screening for nutritional disorder; Z13.29 Encounter for screening for other suspected endocrine disorder
CPT/HCPCS: 36415; 80053; 81003; 82306; 84443; 85025

== ENCOUNTER 2025-09-05 07:53 | Outpatient (AMB) | payer BC, SELFPAY ==
--- NOTE | 2025-09-05 07:55 | MHC.PC.OV ---
Vital Signs 09/05/25 08:04 09/05/25 08:17 Height 5 ft 10 in Weight 206 lb 6 oz BMI 29.6 BP 142/69 H 120/60 Blood Pressure Location Lt brachial Lt brachial Position Sitting Sitting Respiration 16 Pulse 85 Pulse Source Pulse Oximeter Temp 97.7 F Temp Source Oral Pulse Oximetry (%) 97 Oxygen Delivery Method Room Air Intake Visit Reasons: CPE Intake Note: patient here for CPE9l Topper Press Operator Automatic Required: Yes Topper Press Operator Automatic Language: Watch Train Assembler Name: Dhruv Alanis Information Interpreted: non-clinical & clinical Allergies No Known Allergies Allergy (Verified 09/05/25 08:11) Medication List - Last Reconciled 09/05/25 by Sammy Marley CNP amlodipine 5 mg PO DAILY 90 days atorvastatin 20 mg PO DAILY blood pressure test kit-large check bp twice a day until stable then 2 times per week cholecalciferol (vitamin D3) 25 mcg PO DAILY 3 months dulaglutide (Trulicity) 3 mg (0.5 mL) subcut QWEEK 4 weeks finasteride 5 mg PO DAILY 90 days glipizide ER 20 mg (2 x 10 mg) PO DAILY lisinopril-hydrochlorothiazide 20-12.5 mg 1 tab PO BID 90 days metformin 1,000 mg PO BID miscellaneous medical supply One large BP cuff/monitor Tobacco use date assessed: 09/05/25 Dental Screening Dental Screen Date: 09/05/25 Did you have a dental visit in the last 12 months?: No Did you have a dental problem in the last 6 months where you did not have access to dental care?: No Was dental information given to patient?: No HPI HPI Comments History of Present Illness Details 65-year-old male presents for an extended physical exam and review of recent lab results. He admits to taking his medications as prescribed without adverse reactions. He is mostly Romanian speaking. Interpretation by a professional print room worker via electronic tablet. Acute issue(s) - None Past Medical History - type 2 diabetes, hypertension, hypercholesterolemia, vitamin-D deficiency, elevated PSA, BPH, bladder outlet obstruction Social History - Former smoker, quit over 15 years ago. Does not vape. Drinks 2 once monthly. Denies recreational drug use - Has been making healthy dietary choices. Walks regularly. Generally sleep well Health maintenance - Last eye exam was over a ago at [facility]. Encouraged to sign a release for his PCP to obtain ophthalmology record - Last dental visit was about 2 years ago; encouraged to schedule an appointment with his dentist for routine dental care - Last Tdap was in 11/09/2019 - Received 1 of 2 shingles vaccines about 4 months ago and intends to get the second dose - Vaccinated for pneumonia - Has not been vaccinated for the flu this season; received the flu vaccine today - Last colonoscopy was in 02/14/2025: Benign polyps Specialists - [facility] urology [facility] Medical History Elevated prostate specific antigen [PSA] Erectile dysfunction Obesity due to excess calories Body mass index (BMI) greater than 30 in adult Type 2 diabetes mellitus with hyperglycemia Allergic rhinitis Overweight Hypertension Gastroesophageal reflux Hypocholesterolemia Insomnia Migraine Surgical History Hx of colonoscopy H/O prostate biopsy H/O left knee surgery Family History Father Hypertension Mother Hypertension Sister Heart problem Social History Household Members Other:: sister Housing: Apartment Are you a primary professional healthcare representative to a significant other at home: No Do you presently have visiting nurse or other home services: No Alcohol intake: never Patient Tobacco Use Status: Former Tobacco user e-Cigarette/Vaping Use: Never Used Second Hand Smoke Exposure: No service: No Current occupational status: employed 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 1. Little interest or pleasure in doing things: not at all 2. Feeling down, depressed, or hopeless: not at all 3. Trouble falling or staying asleep, or sleeping too much: not at all 4. Feeling tired or having little energy: not at all 5. Poor appetite or overeating: not at all 6. Feeling bad about yourself - or that you are a failure or have let yourself or your family down: not at all 7. Trouble concentrating on things, such as reading the newspaper or watching television: not at all 8. Moving or speaking so slowly that other people could have noticed. Or the opposite - being so fidgety or restless that you have been moving around a lot more than usual: not at all 9. Thoughts that you would be better off or of hurting yourself in some way: not at all Total score: 0 Depression Screening Interpretation: Negative Depression Screening Done: Yes 98871 - PHQ-9 Billing: Yes Source: Developed by Drs. Flaco Austin, Carolyn Calabrese, Adair Pyle and colleagues, with an educational binu from [employer]. Thrive Questionnaire Date Thrive assessed: 09/05/25 I am a: Patient What is your living situation today?: I have a steady place to live Within the past 12 months, did the food you bought not last and you didn't have the money to get more?: Never true Within the past 12 months, did you worry whether your food would run out before you got money to buy more?: Never true Do you have trouble paying for medicines?: No Do you have trouble getting transportation to medical appointments?: No Do you have trouble paying your heating and electricity bill?: No Do you have trouble taking care of your child, family member or friend?: No Do you have trouble with day-to-day activities such as bathing, preparing meals, shopping, managing finances, etc.?: No Are you currently unemployed and looking for a job?: No Are you interested in more education?: No Please select the resources that you would like help with: None Currently or been in a relationship where the following occur: No concerns reported THRIVE Score: 0 AUDIT C Alcohol Use Questionnaire (AUDIT-C) 1. How often do you have a drink containing alcohol?: Monthly or less 2. How many drinks containing alcohol do you have on a typical day when you are drinking?: 1 or 2 3. How often do you have six or more drinks on one occasion?: Never Total Score: 1 Score Reviewed/Action Taken: Yes FLORENTIN-7 AMB Questionnaire FLORENTIN-7 Date FLORENTIN - 7 assessed: 09/05/25 Feeling nervous, anxious, or on edge: 0 = Not at all Not being able to stop or control worryin = Not at all Worrying too much about different things: 0 = Not at all Trouble relaxin = Not at all Being so restless that it is hard to sit still: 0 = Not at all Becoming easily annoyed or irritable: 0 = Not at all Feeling afraid as if something awful might happen: 0 = Not at all Total FLORENTIN-7 score (0-4 normal; 5-9 mild; 10-14 moderate; 15-21 severe): 0 Source: Developed by Drs. Flaco Austin, Carolyn Calabrese, Adair Pyle and colleagues, with an educational binu from [employer]. FLORENTIN-7 Assessment Billing FLORENTIN-7 Assessment Tool: FLORENTIN-7 Assessment 24182 Review of Systems Const Details: Denies chills, Denies fatigue, Denies fever(s), Denies headache(s) and Denies weakness HEENT Denies change in vision, Denies dizziness, Denies headache(s), Denies hearing loss, Denies nasal congestion, Denies sinus pain, Denies sinus pressure and Denies sore throat Card Denies chest pain, Denies lightheadedness, Denies dyspnea and Denies other (palpitations) Resp Denies cough, Denies dyspnea and Denies wheezing GI Denies abdominal pain, Denies melena, Denies hematochezia, Denies change in bowel habits, Denies dyspepsia and Denies nausea Denies hematuria and Denies dysuria Musc Denies abnormal gait, Denies myalgias, Denies arthralgias, Denies numbness and Denies tingling Skin/Breast Denies rash, Denies unusual bruising and Denies wounds Neuro Denies abnormal gait, Denies dizziness, Denies headache(s), Denies memory loss, Denies numbness, Denies Sensory deficit (Neuro), Denies tingling and Denies weakness Psych Denies anxiety, Denies depression and Denies memory loss Endo Denies cold intolerance, Denies fatigue, Denies heat intolerance, Denies polydipsia and Denies polyuria Rodney/Lymph Denies easy bleeding and Denies easy bruising Aller/Immun Denies wheezing Physical exam (Primary Care) Vital Signs: Last Vital Signs Temp 97.7 F 09/05/25 08:04 Pulse 85 09/05/25 08:04 Resp 16 09/05/25 08:04 BP 120/60 09/05/25 08:17 Pulse Ox 97 09/05/25 08:04 Oxygen Delivery Method Room Air 09/05/25 08:04 BMI result Body Mass Index 29.6 Tobacco/Smoking Status: Tobacco use Status Tobacco use date assessed 09/05/25 09/05/25 08:04 Patient Tobacco Use Status Former Tobacco user 09/05/25 07:57 e-Cigarette/Vaping Use Never Used 09/05/25 07:57 PHQ-9: PHQ-9 Score PHQ-9: Total score 0 09/05/25 08:54 Depression Screening Interpretation: Negative Thrive Assessment: Date of Thrive Assessment Date Thrive assessed 09/05/25 09/05/25 08:04 Currently or been in a relationship where the following occur: No concerns reported Const Other: General: no acute distress, well developed, alert and awake Nutritional Appearance: well nourished Orientation/consciousness: patient oriented x3 HENMT Head: Yes normocephalic and Yes atraumatic Ears: hearing grossly normal bilaterally and TM's normal bilaterally General nose exam: Normal external nose present and Normal nares present Mouth: Normal oral and palatal mucosa present and moist mucous membranes Teeth and gingiva: dentition normal Throat: Yes oropharynx normal Eyes Pupils: Equal, round and reactive pupils present and Pupil accommodation reflex normal EOM: EOMs intact bilaterally Neck Neck: Yes normal visual inspection, Yes no lymphadenopathy and Yes trachea midline Thyroid: Thyroid normal Carotids: no bruits Lymphatic: no lymphadenopathy noted Chest Chest palpation & inspection: normal inspection of the chest Resp Effort & Inspection: normal respiratory effort Auscultation: clear to auscultation bilaterally Cardio Rate: regular rate Rhythm: regular rhythm Heart sounds: S1 normal heart sound present, S2 normal heart sound present, no gallops, no murmurs and no rubs Bruits: no abdominal aortic bruits and no carotid bruits GI Palpation (GI): No Abdominal aortic bruit present, Soft to palpation, nontender, No hepatosplenomegaly present and No Rebound tenderness present Auscultation: normal bowel sounds General: Yes no CVA tenderness Back/Spine/Pelvis Back: no CVA tenderness Cervical Spine: cervical ROM normal and No Cervical spine tenderness Thoracic/Lumbar Spine: thoraco-lumbar ROM normal, No pain with thoraco-lumbar ROM, No thoracic spinal tenderness and No lumbar spinal tenderness Skin General: warm and dry. Normal skin color. Normal skin turgor Lesions: no lesions Rashes: no rashes Trauma: no lacerations or abrasions Wounds: no wounds Nails: normal Neuro General: patient oriented x3, gait normal and CN's II-XI intact bilaterally Cranial nerves: Yes Equal, round and reactive pupils present Cognition (Neuro): normal cognition Gait exam (Neuro): Normal gait present Motor exam (neuro): 5/5 motor strength present throughout Sensory Exam: No Sensory deficit (Neuro) Deep tendon reflexes (DTR's): Right patellar reflex intensity grade: 2+ and Left patellar reflex intensity grade: 2+ Extrem General: Yes normal to inspection, No edema and No calf tenderness Psych Appearance: grossly normal Affect: normal affect Attitude: cooperative Thought process: Normal thought process present Office Procedures Flu Questionnaire Does the patient have a severe egg allergy?: No Does the patient have severe life threatening allergies?: No Does the patient have a fever or illness today?: No Has the patient ever had Guillain-Westminster Syndrome?: No Has the patient ever had any past reaction to a flu shot?: No Immunizations Fluarix [id number] (PF) 45 mcg (15 mcg x 3)/0.5 mL IM syringe Performing Provider: Sammy Marley CNP Performing Location: [facility] Family Medicine Administered by: Geovanna Moss RN on 09/05/25 08:44 Dose Route Admin Location Dispensed Lot Number Expiration Date [facility] [place] 0.5 mL IM Right Deltoid 0.5 mL [id number] 05/16/26 [id number] [employer] VIS Given Date VIS Provided VIS Publication Date 09/05/25 Single Vaccine 24 Eligibility Eligibility Date Funding Source Not [facility] Eligible 09/05/25 Private Coding Level of Care Code Tele Est Pt Level 3 (96113) Est Pt Prev Care 40-64y(61723) Diagnoses Normal physical examination, routine Z00.00 Primary hypertension I10 Hypertension type: primary hypertension Additional Codes FLORENTIN-7 Assessment Billing - FLORENTIN-7 Assessment Tool: FLORENTIN-7 Assessment 94698 ([id number]) PHQ-9 - 46042 - PHQ-9 Billing: Yes ([id number]) Assessment & Plan Assessment & Plan (1) Normal physical examination, routine: Code(s): Z00.00 - Encounter for general adult medical examination without abnormal findings Category: Medical Plan: No significant functional limitation noted. Continue current treatment regimen. Healthy diet and routine exercise encouraged. Follow-up in 1 month for hypertension and diabetes. Return sooner with symptoms or concerns. Verbalized understanding and agreed with the plan. Recent labs reviewed. Unremarkable findings. (2) Hypertension: Code(s): I10 - Essential (primary) hypertension Category: Medical Qualifiers: Hypertension type: primary hypertension Qualified Code(s): I10 - Essential (primary) hypertension Plan: Resting blood pressure is 120/60, within goal of less than 130/80. Continue current treatment regimen. Low-sodium diet encouraged. Follow-up in 3 months. Verbalized understanding and agreed with the plan. Orders: Orders Influenza [id number] Immunization Today Z23 - Encounter for immunization
--- OUTSIDE RECORDS SUMMARY | 2025-09-05 07:57 | XMS_ITS | Clinical Summary ---
Author Organization [facility] Address [address] [place] [address] Phone Care Team Providers Care Medical Chemist Name Role Phone Sammy Marley MOLDER [employer] Primary Care Provider [phone] Allergies No known active allergies Medications ketoconazole [...] Surgery Date Site/Laterality Comments KNEE ARTHROSCOPY PROCEDURE: DC ARTHROSCOPY KNEE DIAGNOSTIC W/WO SYNOVIAL BX SPX; [...] AM EDT Office Visit Orthopedic Surgery - [place] [id number] [id number] Ruben Clifford, ALEX [address] [address] Health Maintenance Due Date Last Done Comments [...] mg/dL Blood Venous blood specimen / Unknown [facility] Provider LAB BLOOD ORDERABLES Dahlia l Result from Last 3 Months or Most Recently Relevant to Health Maintenance Insurance [facility] Care Teams Medical Chemist Relationship Specialty Start Date End Date Sammy Marley FNP [address] [place] [address] PCP - General Family Medicine 01/14/25
--- OUTSIDE RECORDS SUMMARY | 2025-09-05 07:57 | XMS_ITS | Clinical Summary ---
Author Organization [facility] Address [address] [place] [address] Care Team Providers Care Dairy Supplies Sales Representative Name Role Phone Unavailable Primary Care [...]
--- OUTSIDE RECORDS SUMMARY | 2025-09-05 07:57 | XMS_ITS | Patient Health Record ---
Author Organization [facility] Address [address] [place] [address] Care Team Providers Care Citrix Administrator Name Role Phone Elizabeth (RETIRED) Kofi ORTEGA [...] Status Risk Notes Problem Colon cancer screening ([id number]) Colon cancer screening (V76.51) Active confirmed Plan Of Treatment Future Test Test Name Order Date COLONOSCOPY 04/19/2015 Insurance Providers Payer Name Payer Address Payer Phone Subscriber Number Group Number Insured Name Patient Relationship to Insured Coverage Start Date Coverage End Date [facility] [address] [place], [place] [id number] DILLON ULLOA Self - patient is the insured Medical (General) History Medical History History ICD Code Denies [place],DM,CVA,Lung disease,renal dise ase Surgical History Surgery Date(Month/Year) knee surgery
[2025-09-05 08:04] VITALS: BP 142/69; PULSE 85; RESP 16; TEMP 36.5; O2SAT 97; BMI 29.6
[2025-09-05 08:17] VITALS: BP 120/60
== END 2025-09-05 08:40 | disposition home or self-care (01) ==
LOC: HO.HMCFM 07:54
PROVIDERS: PCP Nurse Practitioner Family; Visit Provider Nurse Practitioner Family
DX: Z00.00 Encounter for general adult medical examination without abnormal findings (principal); I10 Essential (primary) hypertension; Z23 Encounter for immunization

== ENCOUNTER → 2025-09-05 07:53 | Outpatient (BNVA) | payer BC, SELFPAY | PROVIDERS: PCP Nurse Practitioner Family; Visit Provider Nurse Practitioner Family | DX: Z00.00 Encounter for general adult medical examination without abnormal findings (principal); Z23 Encounter for immunization; I10 Essential (primary) hypertension; Z13.31 Encounter for screening for depression; Z13.39 Encounter for screening examination for other mental health and behavioral disorders | CPT/HCPCS: 90471; 90656; 96127 ==

== ENCOUNTER 2025-10-10 09:04 | Outpatient (AMB) | payer BC, SELFPAY ==
--- NOTE | 2025-10-10 09:10 | A.OFFPC_ITS ---
Vital Signs 10/10/25 09:17 10/10/25 09:44 Height 5 ft 10 in Weight 206 lb 2 oz BMI 29.6 BP 133/70 130/70 Blood Pressure Location Lt brachial Rt brachial Position Sitting Sitting Respiration 16 Pulse 76 Pulse Source Pulse Oximeter Temp 97.8 F Temp Source Oral Pulse Oximetry (%) 99 Oxygen Delivery Method Room Air Intake Visit Reasons: 1 mos HTN, DM Intake Note: patient here for 1 month follow up on HTN and Dm Optical Effects Camera Operator Required: Yes Optical Effects Camera Operator Language: Sports Statistician Name: [id number] Information Interpreted: non-clinical & clinical Allergies No Known Allergies Allergy (Verified 10/10/25 09:36) Medication List - Last Reconciled 10/10/25 by Sammy Marley CNP amlodipine 5 mg PO DAILY 90 days atorvastatin 20 mg PO DAILY blood pressure test kit-large check bp twice a day until stable then 2 times per week cholecalciferol (vitamin D3) 25 mcg PO DAILY 3 months dulaglutide (Trulicity) 3 mg (0.5 mL) subcut QWEEK 4 weeks finasteride 5 mg PO DAILY 90 days glipizide ER 20 mg (2 x 10 mg) PO DAILY lisinopril-hydrochlorothiazide 20-12.5 mg 1 tab PO BID 90 days metformin 1,000 mg PO BID miscellaneous medical supply One large BP cuff/monitor Tobacco use date assessed: 10/10/25 Dental Screening Dental Screen Date: 10/10/25 Did you have a dental visit in the last 12 months?: No Did you have a dental problem in the last 6 months where you did not have access to dental care?: No Was dental information given to patient?: Patient has dentist HPI HPI Comments History of Present Illness Details 65-year-old male presents for hypertensi on and diabetes follow-up. He admits to taking his medications as prescribed without adverse reactions. He notes that he has been making healthy lifestyle choices, including low carbs and regular walks. He denies drinking alcohol. He offers no complaints and denies acute symptoms at this time. He is mostly Mauritian speaking. Interpretation by professional freelance interpreter/translator via voice call. COUNTS INCLUDE 234 BEDS AT THE [facility] Medical History Elevated prostate specific antigen [PSA] Erectile dysfunction Obesity due to excess calories Body mass index (BMI) greater than 30 in adult Type 2 diabetes mellitus with hyperglycemia Allergic rhinitis Overweight Hypertension Gastroesophageal reflux Hypocholesterolemia Insomnia Migraine Surgical History Hx of colonoscopy H/O prostate biopsy H/O left knee surgery Family History Father Hypertension Mother Hypertension Sister Heart problem Social History Household Members Other:: sister Housing: Apartment Are you a primary ambulatory care coordinator to a significant other at home: No Do you presently have visiting nurse or other home services: No Alcohol intake: never Patient Tobacco Use Status: Former Tobacco user e-Cigarette/Vaping Use: Never Used Second Hand Smoke Exposure: No service: No Current occupational status: employed 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 [employer] Current occupational exposures/hazards: No Cognitive needs: No Hearing needs: No Vision needs: No Questionnaire Thrive Questionnaire Date Thrive assessed: 12/27/24 I am a: Patient What is your living situation today?: I have a steady place to live Within the past 12 months, did the food you bought not last and you didn't have the money to get more?: Never true Within the past 12 months, did you worry whether your food would run out before you got money to buy more?: Never true Do you have trouble paying for medicines?: No Do you have trouble getting transportation to medical appointments?: No Do you have trouble paying your heating and electricity bill?: No Do you have trouble taking care of your child, family member or friend?: No Do you have trouble with day-to-day activities such as bathing, preparing meals, shopping, managing finances, etc.?: No Are you currently unemployed and looking for a job?: No Are you interested in more education?: No Please select the resources that you would like help with: None Currently or been in a relationship where the following occur: No concerns reported THRIVE Score: 0 FLORENTIN-7 AMB Questionnaire FLORENTIN-7 Date FLORENTIN - 7 assessed: 09/05/25 Source: Developed by Drs. Flaco Austin, Carolyn Calabrese, Adair Pyle and colleagues, with an educational binu from [employer]. Review of Systems Const Details: Const Denies chills, Denies fatigue, Denies fever(s), Denies headache(s) and Denies weakness ENT Denies dizziness and Denies headache(s) Card Denies chest pain, Denies lightheadedness, Denies dyspnea and Denies other (Palpitations) Resp Denies cough, Denies dyspnea, Denies wheezing and Denies other ( shortness of breath) GI Denies abdominal pain, Denies melena, Denies hematochezia, Denies change in bowel habits, Denies dyspepsia and Denies nausea Denies hematuria and Denies dysuria Musc Denies abnormal gait, Denies myalgias, Denies arthralgias, Denies numbness and Denies tingling Skin/Breast Denies rash, Denies unusual bruising and Denies wounds Neuro Denies abnormal gait, Denies dizziness, Denies headache(s), Denies memory loss, Denies numbness, Denies Sensory deficit (Neuro), Denies tingling and Denies weakness Psych Denies anxiety, Denies depression, Denies memory loss Endo Denies cold intolerance, Denies fatigue, Denies heat intolerance, Denies polydipsia and Denies polyuria Aller/Immun Denies wheezing Physical exam (Primary Care) Vital Signs: Last Vital Signs Temp 97.8 F 10/10/25 09:17 Pulse 76 10/10/25 09:17 Resp 16 10/10/25 09:17 BP 133/70 10/10/25 09:17 Pulse Ox 99 10/10/25 09:17 Oxygen Delivery Method Room Air 10/10/25 09:17 BMI result Body Mass Index 29.6 Tobacco/Smoking Status: Tobacco use Status Tobacco use date assessed 10/10/25 10/10/25 09:23 Patient Tobacco Use Status Former Tobacco user 10/10/25 09:12 e-Cigarette/Vaping Use Never Used 10/10/25 09:12 Thrive Assessment: Date of Thrive Assessment Date Thrive assessed 12/27/24 10/10/25 09:12 Currently or been in a relationship where the following occur: No concerns reported Const Other: General: no acute distress and well developed Nutritional Appearance: well nourished Orientation/consciousness: patient oriented x3 HENMT Head: Yes normocephalic and Yes atraumatic Eyes General: appearance normal, both eyes and all related structures Pupils: Equal, round and reactive pupils present EOM: EOMs intact bilaterally Resp Effort & Inspection: normal respiratory effort Auscultation: clear to auscultation bilaterally Cardio Rate: regular rate Rhythm: regular rhythm Heart sounds: S1 normal heart sound present, S2 normal heart sound present, no gallops, no murmurs and no rubs Extrem General: Yes normal to inspection, No edema and No calf tenderness Skin General: warm and dry. Normal skin color. Normal skin turgor Neuro General: patient oriented x3, gait normal and no focal neuro deficit Cranial nerves: Yes Equal, round and reactive pupils present Cognition (Neuro): normal cognition Gait exam (Neuro): Normal gait present Sensory Exam: No Sensory deficit (Neuro) Psych Appearance: grossly normal Affect: normal affect Attitude: cooperative Thought process: Normal thought process present Coding Level of Care Code Est Pt Level 4 (34954) Diagnoses Primary hypertension I10 Hypertension type: primary hypertension Uncontrolled type 2 diabetes mellitus with hyperglycemia E11.65 Glycemic state: with hyperglycemia Assessment & Plan Assessment & Plan (1) Hypertension: Code(s): I10 - Essential (primary) hypertension Category: Medical Qualifiers: Hypertension type: primary hypertension Qualified Code(s): I10 - Essential (primary) hypertension Plan: Resting blood pressure is 130/70, slightly above goal of less than 130/80. Continue current treatment regimen. Low-sodium diet encouraged. Follow-up in 3 months for transfer of care with a new provider within the [facility], hypertension, and diabetes. Return sooner with symptoms or concerns. Verbalized understanding and agreed with the plan. (2) Diabetes type 2, uncontrolled: Code(s): E11.65 - Type 2 diabetes mellitus with hyperglycemia Category: Medical Qualifiers: Glycemic state: with hyperglycemia Qualified Code(s): E11.65 - Type 2 diabetes mellitus with hyperglycemia Plan: A1c today is 7.1%, slightly above goal of less than 7.0%. Previous A1c was 6.6%. Trulicity increased to 4.5 mg weekly; advised to take as prescribed. Continue current treatment regimen. ADA diet and routine exercise encouraged. Follow-up in 3 months. Verbalized understanding and agreed with the plan. Medications: New dulaglutide (Trulicity) 4.5 mg (0.5 mL) subcut QWEEK 2 mL 3RF Discontinued dulaglutide (Trulicity) Discontinued Reason: Doctor's Order 3 mg (0.5 mL) subcut QWEEK 4 weeks 2 mL 3RF
[2025-10-10 09:17] VITALS: BP 133/70; PULSE 76; RESP 16; TEMP 36.6; O2SAT 99; BMI 29.6
[2025-10-10 09:44] VITALS: BP 130/70
--- OUTSIDE RECORDS SUMMARY | 2025-10-10 09:57 | XMS_ITS | Clinical Summary ---
Author Organization [facility] Address [address] [place] [address] Phone Care Team Providers Care Cushion Filler Name Role Phone Sammy Marley TRAFFIC SIGNAL TECHNICIAN Primary Care Provider [phone] Allergies No known active allergies Medications ketoconazole [...] Surgery Date Site/Laterality Comments KNEE ARTHROSCOPY PROCEDURE: MD ARTHROSCOPY KNEE DIAGNOSTIC W/WO SYNOVIAL BX SPX; [...] 04/18/2025 8:50 AM EDT Plan of Treatment Health Maintenance Due Date Last Done Comments [...] Depression Screening 11/17/2024 COVID-19 Vaccine (2 - season) 2025 09/11/2021 Influenza Vaccine (#1) 2025 [...] Most Recently Relevant to Health Maintenance Insurance [facility] Care Teams Cushion Filler Relationship Specialty Start Date End Date Sammy Marley FNP [address] [place] [address] PCP - General Family Medicine 01/14/25
--- OUTSIDE RECORDS SUMMARY | 2025-10-10 09:57 | XMS_ITS | Patient Health Record ---
Author Organization [facility] Address [address] [place] [address] Care Team Providers Care Panama Hat Blocker Name Role Phone Elizabeth (RETIRED) Kofi ORTEGA Primary Care Provide r Alex Arevalo Jr Unavailable Reason For Referral No Information Medications Medication SIG (Take, Route, Frequency, Duration) Notes Start Date End Date Status Colyte with Flavor Packs 240 GM Solution Reconstituted As directed Orally Over the specified time.; Duration: 1 day(s) 04/19/2015 Active Social History Social History Additional Details Category Social Info Options Details Miscellaneous: Marital status: Occupation: [employer] Problems Problem Type SNOMED Code ICD Code Onset Dates Problem Status W/U Status Risk Notes Problem Colon cancer screening (762409908) Colon cancer screening (V76.51) Active confirmed Plan Of Treatment Future Test Test Name Order Date COLONOSCOPY 04/19/2015 Insurance Providers Payer Name Payer Address Payer Phone Subscriber Number Group Number Insured Name Patient Relationship to Insured Coverage Start Date Coverage End Date [facility] [address] [place], [place] [id number] [phone] [id number] DILLON ULLOA Self - patient is the insured Medical (General) History Medical History History ICD Code Denies [place],DM,CVA,Lung disease,renal dise ase Surgical History Surgery Date(Month/Year) knee surgery
== END 2025-10-10 09:52 | disposition home or self-care (01) ==
LOC: HO.HMCFM 09:05
PROVIDERS: PCP Nurse Practitioner Family; Visit Provider Nurse Practitioner Family
DX: I10 Essential (primary) hypertension (principal); E11.65 Type 2 diabetes mellitus with hyperglycemia; E11.9 Type 2 diabetes mellitus without complications

== ENCOUNTER → 2025-10-10 09:04 | Outpatient (BNVA) | payer BC, SELFPAY | PROVIDERS: PCP Nurse Practitioner Family; Visit Provider Nurse Practitioner Family | DX: E11.65 Type 2 diabetes mellitus with hyperglycemia (principal); I10 Essential (primary) hypertension | CPT/HCPCS: 83036 ==